=== PATIENT | female | born 1940 | race Caucasian/White ===

== ENCOUNTER 2018-11-24 16:26 | Emergency (ER) | payer MEDICARE ==
[~2018-11-24] VITALS: Ht 160 cm; Wt 101.6 kg
[2018-11-24] MEDS ORDERED: NS IV 500 ML 500 ML IV ONE (17:20)
[2018-11-24] MEDS ORDERED: NS IV 1000 ML 1,000 ML IV SCH ×3 (17:20→20:15)
--- NOTE | 2018-11-24 17:20 | ED Respiratory ---
General Stated Complaint: ASTHMA, SOB, YELLOW CONGESTION Source: patient, family (sister) Exam Limitations: no limitations (LAURE BOWIE) Source: patient (UMANG PRESTON DO) History of Present Illness Date Seen by Provider: Nov 24, 2018 Time Seen by Provider: 17:08 Initial Comments Patient presents the ER by private conveyance with her sister and chief complaint that she lives at assisted living home and is having shortness of breath cough productive yellow phlegm and worsening shortness of breath over the past 2 days. She started wearing her oxygen all day because her oxygen sats yesterday were 89% on room air. She usually does wear CPAP at 13 cm water pressure and 2 L of oxygen to sleep. She uses Xopenex because albuterol causes her a 2 fibrillation to go into rapid ventricular response. She is on Cardizem for her A. fib and Xarelto. Her last dose of Xopenex was at 1300, 4 hours ago. She's not had any worsening swelling in her feet. She has no history of CAD or CHF. The patient usually takes 5 mg daily for her asthma but for the past 2 days she' s bump that up to 40 mg a day. Her PCP was unavailable today and so she went to the urgent care and they told her to come the ER. (LAURE BOWIE) Allergies and Home Medications Allergies Coded Allergies: aspirin (Verified Allergy, Unknown, 11/24/18) albuterol (Verified Adverse Reaction, Unknown, afib rvr, 11/24/18) Uncoded Allergies: PLASTIC TAPE (Adverse Reaction, Unknown, 11/24/18) Patient Home Medication List Home Medication List Reviewed: Yes (LAURE BOWIE) Review of Systems Review of Systems Constitutional: No chills, No fever EENTM: No hearing loss, No ear pain Respiratory: cough, phlegm, short of breath, wheezing Cardiovascular: No chest pain; edema (chronic); No Hx of Intervention, No palpitations Gastrointestinal: No abdominal pain, No constipation, No diarrhea, No nausea, No vomiting Genitourinary: No discharge, No dysuria Musculoskeletal: No back pain, No joint pain (LAURE BOWIE) Past Mburaqh-Hrjisf-Brnqns Hx Patient Social History Alcohol Use: Denies Use Recreational Drug Use: No Smoking Status: Never a Smoker Recent Foreign Travel: No Contact w/Someone Who Travel: No (LAURE BOWIE) Physical Exam Vital Signs - First Documented 11/24/18 11/24/18 16:35 16:40 Temp 99.0 Pulse 111 Resp 33 B/P (MAP) 179/84 (115) Pulse Ox 94 O2 Delivery Nasal Cannula O2 Flow Rate 4.00 FiO2 94 (UMANG PRESTON DO) Capillary Refill : (LAURE BOWIE) Height: '" Weight: lbs. oz. kg; BMI Method: General Appearance: WD/WN, mild distress Eyes: Bilateral Eye Normal Inspection, Bilateral Eye PERRL, Bilateral Eye EOMI HEENT: PERRL/EOMI, normal ENT inspection, TMs normal, pharynx normal Neck: non-tender, full range of motion, supple, normal inspection Respiratory: chest non-tender, respiratory distress (mild), decreased breath sounds, accessory muscle use (mild inc), wheezing, expiration Cardiovascular: normal peripheral pulses, regular rate, rhythm, no edema Gastrointestinal: normal bowel sounds, non tender, soft Neurologic/Psychiatric: alert, normal mood/affect, oriented x 3 Skin: normal color, warm/dry (LAURE BOWIE) Focused Exam Lactate Level 11/24/18 17:20: Lactic Acid Level 3.52*H 11/24/18 19:15: Lactic Acid Level 2.19*H (UMANG PRESTON DO) Lactic Acid Level Laboratory Tests Test 11/24/18 17:20 11/24/18 19:15 Lactic Acid Level 3.52 MMOL/L (0.50-2.00) *H 2.19 MMOL/L (0.50-2.00) *H (UMANG PRESTON DO) Progress/Results/Core Measures Suspected Sepsis SIRS Temperature: Pulse: Respiratory Rate: Laboratory Tests 11/24/18 17:20: White Blood Count 11.3H Blood Pressure / Mean: 11/24/18 17:20: Lactic Acid Level 3.52*H 11/24/18 19:15: Lactic Acid Level 2.19*H Laboratory Tests 11/24/18 17:20: Creatinine 1.05, INR Comment 1.5H, Platelet Count 265, Total Bilirubin 0.3 (LAURE BOWIE) Results/Orders Lab Results Laboratory Tests Test 11/24/18 17:20 11/24/18 17:35 11/24/18 19:15 Range/Units White Blood Count 11.3 H 4.3-11.0 10^3/uL Red Blood Count 3.36 L 4.35-5.85 10^6/uL Hemoglobin 10.2 L 11.5-16.0 G/DL Hematocrit 34 L 35-52 % Mean Corpuscular Volume 100 H 80-99 FL Mean Corpuscular Hemoglobin 30 25-34 PG Mean Corpuscular Hemoglobin Concent 30 L 32-36 G/DL Red Cell Distribution Width 17.1 H 10.0-14.5 % Platelet Count 265 130-400 10^3/uL Mean Platelet Volume 9.0 7.4-10.4 FL Neutrophils (%) (Auto) 90 H 42-75 % Lymphocytes (%) (Auto) 3 L 12-44 % Monocytes (%) (Auto) 5 0-12 % Eosinophils (%) (Auto) 0 0-10 % Basophils (%) (Auto) 0 0-10 % Neutrophils # (Auto) 10.1 H 1.8-7.8 X 10^3 Lymphocytes # (Auto) 0.3 L 1.0-4.0 X 10^3 Monocytes # (Auto) 0.6 0.0-1.0 X 10^3 Eosinophils # (Auto) 0.0 0.0-0.3 10^3/uL Basophils # (Auto) 0.0 0.0-0.1 10^3/uL Neutrophils % (Manual) 79 % Lymphocytes % (Manual) 5 % Monocytes % (Manual) 4 % Eosinophils % (Manual) 1 % Basophils % (Manual) 0 % Band Neutrophils 11 % Nucleated Red Blood Cells 1 Anisocytosis SLIGHT Prothrombin Time 18.3 H 12.2-14.7 SEC INR Comment 1.5 H 0.8-1.4 Activated Partial Thromboplast Time 40 H 24-35 SEC Sodium Level 143 135-145 MMOL/L Potassium Level 4.3 3.6-5.0 MMOL/L Chloride Level 103 98-107 MMOL/L Carbon Dioxide Level 21 21-32 MMOL/L Anion Gap 19 H 5-14 MMOL/L Blood Urea Nitrogen 26 H 7-18 MG/DL Creatinine 1.05 0.60-1.30 MG/DL Estimat Glomerular Filtration Rate 51 BUN/Creatinine Ratio 25 Glucose Level 216 H 70-105 MG/DL Lactic Acid Level 3.52 *H 2.19 *H 0.50-2.00 MMOL/L Calcium Level 9.3 8.5-10.1 MG/DL Corrected Calcium 9.5 8.5-10.1 MG/DL Total Bilirubin 0.3 0.1-1.0 MG/DL Aspartate Amino Transf (AST/SGOT) 18 5-34 U/L Alanine Aminotransferase (ALT/SGPT) 18 0-55 U/L Alkaline Phosphatase 86 40-136 U/L Total Protein 7.1 6.4-8.2 GM/DL Albumin 3.8 3.2-4.5 GM/DL Blood Gas Puncture Site RT RADIAL Blood Gas Patient Temperature 99 Arterial Blood pH 7.40 7.37-7.43 Arterial Blood Partial Pressure CO2 48 H 35-45 MMHG Arterial Blood Partial Pressure O2 104 H 79-93 MMHG Arterial Blood HCO3 30 H 23-27 MMOL/L Arterial Blood Total CO2 31.2 H 21.0-31.0 MMOL/L Arterial Blood Oxygen Saturation 98 94-100 % Arterial Blood Base Excess 4.0 H -2.5-2.5 MMOL/L Claudy Test OK Blood Gas Ventilator Setting NO Blood Gas Inspired Oxygen 3L (UMANG PRESTON DO) Micro Results Microbiology 11/24/18 Influenza Types A,B Antigen (SUSANA) - Final, Complete (UMANG PRESTON DO) Medications Given in ED Current Medications Medications Dose Ordered Sig/Arsh Route Start Time Stop Time Status Last Admin Dose Admin Cefepime HCl 1000 mg/Sterile Water 10 ml @ 200 mls/hr ONCE ONCE IV 11/24/18 17:30 11/24/18 17:32 DC 11/24/18 17:49 200 MLS/HR Ipratropium [place] 0.5 mg ONCE ONCE IH 11/24/18 17:30 11/24/18 17:31 DC 11/24/18 17:49 0.5 MG Ipratropium [place] 0.5 mg ONCE ONCE IH 11/24/18 19:00 11/24/18 19:01 DC 11/24/18 18:55 0.5 MG Levalbuterol HCl 1.25 mg ONCE ONCE INH 11/24/18 17:30 11/24/18 17:31 DC 11/24/18 17:49 1.25 MG Levalbuterol HCl 7.5 mg ONCE ONCE INH 11/24/18 19:00 11/24/18 19:01 DC 11/24/18 19:38 7.5 MG Sodium Chloride 500 ml @ 0 mls/hr Q0M ONCE IV 11/24/18 17:20 11/24/18 17:23 DC 11/24/18 17:50 1,000 MLS/HR (UMANG PRESTON DO) Vital Signs/I&O 11/24/18 11/24/18 16:35 16:40 Temp 99.0 Pulse 111 Resp 33 B/P (MAP) 179/84 (115) Pulse Ox 94 94 O2 Delivery Nasal Cannula Nasal Cannula O2 Flow Rate 4.00 4.00 FiO2 94 (UMANG PRESTON DO) Vital Signs/I&O Capillary Refill : (LAURE BOWIE) Progress Note #1: Time: 18:41 Progress Note Septic workup reveals an elevated lactate. The ABG shows the oxygenation is okay when she is on 2 L by nasal cannula and she has compensated increased CO2. We'll give her a Atrovent and Xopenex and reexamine. The first Xopenex did not make any difference in her breathing. Really give her an hour-long +2 g of magnesium plus put her on BiPAP at 12 over 4 which is similar to her CPAP of 12 cm water pressure. We are going to give her 125 mg of Solu-Medrol and put her in the hospital. She has requested to go to where her son is an anesthesiologist. Progress Note #2: Time: 20:00 Progress Note After the magnesium and most of her hour-long Atrovent and Xopenex nebulizer his in plus putting her on the BiPAP she is much more relaxed and no longer having the increased work of breathing. Her repeat lactate is 2.19 which is an improvement. We are going to put her on maintenance IV fluids and continue to reassess. We have called and requested a bed. (LAURE BOWIE) Progress Note #1: Progress Note Care assumed from Dr. Bowie. Patient breathing comfortably on bipap, reseting with an O2 saturation of 100%. Patient accepted for transfer by Dr. Anderson at [facility] in . Will repeat breathing tx prior to transport and send on BIPAP. Progress Note #2: Time: 21:03 (UMANG PRESTON DO) Diagnostic Imaging Diagonstic Imaging: Xray Plain Films/CT/US/NM/MRI: chest (1v) Comments NAME: YAQUELIN WALTER I [facility] REC#: [id number] PT STATUS: REG ER : 1940 PHYSICIAN: LAURE BOWIE MD ADMIT DATE: 11/24/18/ER FS Signed Date of Exam:11/24/18 CHEST 1 VIEW AP/PA ONLY Indication: Respiratory distress Portable chest 4:30 PM Heart size and pulmonary vascular normal. Lungs are clear. There are no effusions or pneumothoraces. Impression: Negative chest Dictated by: Dictated on workstation # [id number] Dict: 11/24/18 1735 Trans: 11/24/18 [id number] Interpreted by: EPI JOHNSON MD Electronically signed by: EPI JOHNSON MD 11/24/181734 Reviewed: Reviewed by Me (LAURE BOWIE) Departure Communication (Admissions) Time/Spoke to Admitting Phy: 21:04 (Dr. Anderson) Care accepted. Patient to by transferred on bipap to [facility] ICU. (UMANG PRESTON DO) Impression Primary Impression: Asthma exacerbation Qualified Codes: J45.901 - Unspecified asthma with (acute) exacerbation Additional Impression: Lactic acidosis Disposition: XFER SHT-TRM HOSP Condition: Stable Admissions Decision to Admit Reason: Admit from ER (General) Decision to Admit/Date: Nov 24, 2018 Time/Decision to Admit Time: 19:00 (UMANG PRESTON DO) Transfer Time Spoke to Accepting Phy: 20:15 Transfer Progress Notes 2000: Talk to regulatory services consultant. She is going to give report to the on-call doctor and have them call us back. Transfer Facility: [id number] Method of Transfer: EMS (LAURE BOWIE) Time Spoke to Accepting Phy: 21:06 Method of Transfer: EMS (UMANG PRESTON DO) Departure-Patient Inst. Decision time for Depature: 19:00 (UMANG PRESTON DO) Referrals: BARBARA MARTINEZ MD (PCP) Primary Care Physician Copy Copies To 1: BARBARA MARTINEZ MD, TITUS J Nov 24, 2018 17:20 UMANG PRESTON DO Nov 24, 2018 21:06
[2018-11-24] MEDS ORDERED: RT-IPRATROPIUM (ATROVENT) 0.5MG/2.5ML AMP IH ONE ×2 (17:30→19:00)
[2018-11-24] MEDS ORDERED: RT-LEVALBUTEROL (XOPENEX) 1.25 MG/3 ML NEB NON-FORMULARY INH ONE ×2 (17:30→19:00)
[2018-11-24] MEDS ORDERED: CEFEPIME INJECTION 1,000 MG in WATER (STERILE) FOR INJECTION 10 ML IV ONE (17:30)
--- NOTE | 2018-11-24 17:38 | Diagnostic Imaging Report ---
Indication: Respiratory distress Portable chest 4:30 PM Heart size and pulmonary vascular normal. Lungs are clear. There are no effusions or pneumothoraces. Impression: Negative chest Dictated by: Dictated on workstation # [id number]
[2018-11-24 17:48] LABS: HEMATOCRIT 34 % (35-52); HEMOGLOBIN 10.2 G/DL (11.5-16.0); MEAN CORPUSCULAR HEMOGLOBIN 30 PG (25-34); MEAN CORPUSCULAR HGB CONC 30 G/DL (32-36); MEAN CORPUSCULAR VOLUME 100 FL (80-99); PLATELET COUNT 265 10^3/uL (130-400); RED CELL DISTRIBUTION WIDTH 17.1 % (10.0-14.5); WHITE BLOOD COUNT 11.3 10^3/uL (4.3-11.0)
[2018-11-24 17:49] LABS: BASOPHILS % (AUTO) 0 % (0-10); EOSINOPHILS % (AUTO) 0 % (0-10); LYMPHOCYTES # (AUTO) 0.3 X 10^3 (1.0-4.0); LYMPHOCYTES % (AUTO) 3 % (12-44); MONOCYTES # (AUTO) 0.6 X 10^3 (0.0-1.0); MONOCYTES % (AUTO) 5 % (0-12); NEUTROPHILS # (AUTO) 10.1 X 10^3 (1.8-7.8); NEUTROPHILS % (AUTO) 90 % (42-75)
[2018-11-24 18:05] LABS: ABG OXYGEN SATURATION 98 % (94-100); ABG PCO2 48 MMHG (35-45); ABG PO2 104 MMHG (79-93); ABG TCO2 31.2 MMOL/L (21.0-31.0)
[2018-11-24 18:06] LABS: INR 1.5 (0.8-1.4); PROTHROMBIN TIME PATIENT 18.3 SEC (12.2-14.7)
[2018-11-24 18:06] LABS: ALLENS TEST OK; INSPIRED O2 3L; PATIENT TEMP 99; VENTILATOR NO
[2018-11-24 18:13] LABS: POTASSIUM 4.3 MMOL/L (3.6-5.0)
[2018-11-24 18:14] LABS: ALBUMIN 3.8 GM/DL (3.2-4.5); BILIRUBIN,TOTAL 0.3 MG/DL (0.1-1.0); CALCIUM 9.3 MG/DL (8.5-10.1); CREATININE SERUM 1.05 MG/DL (0.60-1.30); TOTAL PROTEIN 7.1 GM/DL (6.4-8.2)
[2018-11-24 18:19] LABS: BAND NEUTROPHILS 11 %; BASOPHILS % (MANUAL) 0 %; EOSINOPHILS % (MANUAL) 1 %; LYMPHOCYTES % (MANUAL) 5 %; MONOCYTES % (MANUAL) 4 %; NEUTROPHILS % (MANUAL) 79 %
[2018-11-24 18:20] LABS: ANISOCYTOSIS SLIGHT; NUCLEATED RED BLOOD CELLS 1
[2018-11-24] MEDS ORDERED: methylPREDNISolone 125 MG (Solu-MEDROL) VIAL IV STA (18:49)
[2018-11-24] MEDS ORDERED: MAGNESIUM 1 GM/100 ML IVPB 100 ML IV SCH (19:00)
[2018-11-24] MEDS ORDERED: DILTIAZEM 180 MG (CARDIZEM CD) CAP PO ONE (19:00)
--- NOTE | 2018-11-24 19:53 | NUR ---
Doctor was notified that the lactic acid 2.19
--- NOTE | 2018-11-24 20:16 | NUR ---
The cardizem was not available so family will bring her cardizem in and she will receive the dose as ordered by the doctor. The doctor was made aware she would be using her home medication.
[2018-11-24 22:03] LABS: BACTERIA,URINE FEW /HPF; BILIRUBIN,URINE NEGATIVE (NEGATIVE); CLARITY,URINE CLEAR; COLOR,URINE YELLOW; GLUCOSE, URINE (UA) TRACE (NEGATIVE); KETONES,URINE NEGATIVE (NEGATIVE); LEUKOCYTE ESTERASE ,URINE NEGATIVE (NEGATIVE); NITRITE,URINE POSITIVE (NEGATIVE); PH,URINE 5.5 (5-9); PROTEIN,URINE TRACE (NEGATIVE); UROBILINOGEN,URINE 0.2 MG/DL (NORMAL)
[2018-11-24] MEDS ORDERED: DILTIAZEM INJECTION 125 MG in NS (IVPB) 100 ML IV SCH (22:15)
--- NOTE | 2018-11-24 23:18 | NUR ---
PT. PULLED HER IV OUT THAT WAS IN HER LEFT AC. THE IV FLUIDS WERE PLACED IN THE RIGHT AC IV.
--- NOTE | 2018-11-24 23:55 | NUR ---
BECAUSE [facility] IS UNABLE TO SUPPLY THE PATIENT WITH THE BIPAP FOR TRANSPORT THIS RN HAD TO CALL [facility] AND WAS INFORMED THEY WOULD COME AND GET HER BUT IT WOULD BE 2-3 HOURS BEFORE THEY CAN GET HERE. PATIENT INFORMED OF THE DELAY IN TRANSFER TO .
[2018-11-25 02:19] VITALS: BP 182/98
== END 2018-11-24 23:39 | disposition short-term general hospital (02) ==
LOC: EDUNIT# 16:26 → ER FS 16:28
DX: J45.901 Unspecified asthma with (acute) exacerbation (principal); E87.2 Acidosis; I48.91 Unspecified atrial fibrillation; Z79.01 Long term (current) use of anticoagulants; Z99.81 Dependence on supplemental oxygen; Z88.6 Allergy status to analgesic agent; Z88.8 Allergy status to other drugs, medicaments and biological substances; Z91.048 Other nonmedicinal substance allergy status
CPT/HCPCS: 36415; 71045; 80053; 81000; 82805; 83605; 85007; 85027; 85610; 85730; 87040; 87088; 87804; 96361; 96365; 96367; 96375; 99291

== ENCOUNTER → 2018-12-13 | Outpatient (CLI) | payer MEDICARE ==
[2018-12-13 15:28] LABS: HEMATOCRIT 34 % (35-52); HEMOGLOBIN 9.6 G/DL (11.5-16.0); MEAN CORPUSCULAR HEMOGLOBIN 29 PG (25-34); MEAN CORPUSCULAR HGB CONC 29 G/DL (32-36); MEAN CORPUSCULAR VOLUME 103 FL (80-99); MEAN PLATELET VOLUME 8.5 FL (7.4-10.4); PLATELET COUNT 288 10^3/uL (130-400); RED CELL DISTRIBUTION WIDTH 16.6 % (10.0-14.5); WHITE BLOOD COUNT 14.2 10^3/uL (4.3-11.0)
[2018-12-13 15:29] LABS: BASOPHILS % (AUTO) 0 % (0-10); EOSINOPHILS % (AUTO) 0 % (0-10); LYMPHOCYTES % (AUTO) 4 % (12-44); MONOCYTES % (AUTO) 3 % (0-12); NEUTROPHILS % (AUTO) 93 % (42-75)
[2018-12-13 15:30] LABS: LYMPHOCYTES # (AUTO) 0.5 X 10^3 (1.0-4.0); MONOCYTES # (AUTO) 0.4 X 10^3 (0.0-1.0); NEUTROPHILS # (AUTO) 13.9 X 10^3 (1.8-7.8)
[2018-12-13 15:31] LABS: BAND NEUTROPHILS 15 %; EOSINOPHILS % (MANUAL) 1 %; LYMPHOCYTES % (MANUAL) 2 %; MONOCYTES % (MANUAL) 3 %; NEUTROPHILS % (MANUAL) 79 %
[2018-12-13 15:32] LABS: CREATININE SERUM 1.16 MG/DL (0.60-1.30); HYPOCHROMASIA 1+
[2018-12-13 15:33] LABS: ALBUMIN 3.5 GM/DL (3.2-4.5); BILIRUBIN,TOTAL 0.3 MG/DL (0.1-1.0); CALCIUM 9.4 MG/DL (8.5-10.1); POTASSIUM 5.5 MMOL/L (3.6-5.0); TOTAL PROTEIN 6.4 GM/DL (6.4-8.2)
== END ==
LOC: LAB FS 14:07
PROVIDERS: ATTEND Pediatrics
DX: E87.5 Hyperkalemia (principal)
CPT/HCPCS: 36415; 80053; 85007; 85027

== ENCOUNTER → 2018-12-27 | Outpatient (CLI) | payer MEDICARE ==
[2018-12-27 15:05] LABS: CALCIUM 9.2 MG/DL (8.5-10.1); CREATININE SERUM 1.52 MG/DL (0.60-1.30)
[2018-12-27 16:25] LABS: HEMATOCRIT 31 % (35-52); MEAN CORPUSCULAR HEMOGLOBIN 29 PG (25-34); WHITE BLOOD COUNT 10.8 10^3/uL (4.3-11.0)
[2018-12-27 16:26] LABS: BASOPHILS % (AUTO) 0 % (0-10); EOSINOPHILS # (AUTO) 0.1 10^3/uL (0.0-0.3); EOSINOPHILS % (AUTO) 1 % (0-10); LYMPHOCYTES % (AUTO) 9 % (12-44); MEAN CORPUSCULAR HGB CONC 29 G/DL (32-36); MEAN CORPUSCULAR VOLUME 101 FL (80-99); MEAN PLATELET VOLUME 8.7 FL (7.4-10.4); MONOCYTES # (AUTO) 0.7 X 10^3 (0.0-1.0); MONOCYTES % (AUTO) 7 % (0-12); NEUTROPHILS # (AUTO) 8.5 X 10^3 (1.8-7.8); NEUTROPHILS % (AUTO) 83 % (42-75); PLATELET COUNT 257 10^3/uL (130-400); RED CELL DISTRIBUTION WIDTH 16.7 % (10.0-14.5)
[2018-12-27 16:27] LABS: BAND NEUTROPHILS 11 %; EOSINOPHILS % (MANUAL) 1 %; LYMPHOCYTES % (MANUAL) 9 %; MONOCYTES % (MANUAL) 7 %; NEUTROPHILS % (MANUAL) 68 %
[2018-12-27 16:28] LABS: HYPOCHROMASIA SLIGHT; MICROCYTOSIS SLIGHT; MYELOCYTES % 4 %; POIKILOCYTOSIS SLIGHT
[2018-12-27 16:29] LABS: ELLIPT/OVALOCYTES SLIGHT
== END ==
LOC: RAD FS 14:07
PROVIDERS: ATTEND Pediatrics
DX: E87.5 Hyperkalemia (principal); J45.40 Moderate persistent asthma, uncomplicated
CPT/HCPCS: 36415; 80048; 85007; 85027

== ENCOUNTER → 2019-02-14 | Outpatient (CLI) | payer MEDICARE ==
[2019-02-14 15:26] LABS: BASOPHILS % (AUTO) 1 % (0-10); EOSINOPHILS % (AUTO) 1 % (0-10); HEMATOCRIT 35 % (35-52); HEMOGLOBIN 10.1 G/DL (11.5-16.0); LYMPHOCYTES # (AUTO) 0.9 X 10^3 (1.0-4.0); LYMPHOCYTES % (AUTO) 8 % (12-44); MEAN CORPUSCULAR HEMOGLOBIN 27 PG (25-34); MEAN CORPUSCULAR HGB CONC 29 G/DL (32-36); MEAN CORPUSCULAR VOLUME 94 FL (80-99); MONOCYTES # (AUTO) 0.8 X 10^3 (0.0-1.0); MONOCYTES % (AUTO) 7 % (0-12); NEUTROPHILS % (AUTO) 82 % (42-75); PLATELET COUNT 346 10^3/uL (130-400); RED CELL DISTRIBUTION WIDTH 15.9 % (10.0-14.5)
[2019-02-14 15:27] LABS: BASOPHILS # (AUTO) 0.1 10^3/uL (0.0-0.1); EOSINOPHILS # (AUTO) 0.1 10^3/uL (0.0-0.3)
[2019-02-14 16:01] LABS: BILIRUBIN,TOTAL 0.2 MG/DL (0.1-1.0); CALCIUM 9.5 MG/DL (8.5-10.1); CREATININE SERUM 1.18 MG/DL (0.60-1.30); TOTAL PROTEIN 6.8 GM/DL (6.4-8.2)
== END ==
LOC: LAB FS 14:24
PROVIDERS: ATTEND Pediatrics
DX: N17.9 Acute kidney failure, unspecified (principal)
CPT/HCPCS: 36415; 80053; 85025

== ENCOUNTER 2019-10-24 21:33 | Emergency (ER) | payer MEDICARE ==
[~2019-10-24] VITALS: Ht 157 cm; Wt 85.0 kg
[2019-10-24 22:10] LABS: HEMATOCRIT 32 % (35-52); HEMOGLOBIN 9.5 G/DL (11.5-16.0); LYMPHOCYTES % (AUTO) 8 % (12-44); MEAN CORPUSCULAR HEMOGLOBIN 28 PG (25-34); MEAN CORPUSCULAR HGB CONC 29 G/DL (32-36); MEAN CORPUSCULAR VOLUME 96 FL (80-99); MEAN PLATELET VOLUME 9.4 FL (7.4-10.4); PLATELET COUNT 329 10^3/uL (130-400); RED CELL DISTRIBUTION WIDTH 17.1 % (10.0-14.5); WHITE BLOOD COUNT 16.1 10^3/uL (4.3-11.0)
[2019-10-24 22:11] LABS: BASOPHILS % (AUTO) 0 % (0-10); EOSINOPHILS % (AUTO) 1 % (0-10); MONOCYTES % (AUTO) 10 % (0-12); NEUTROPHILS % (AUTO) 81 % (42-75)
[2019-10-24 22:12] LABS: EOSINOPHILS # (AUTO) 0.1 10^3/uL (0.0-0.3); LYMPHOCYTES # (AUTO) 1.3 X 10^3 (1.0-4.0); MONOCYTES # (AUTO) 1.6 X 10^3 (0.0-1.0)
--- NOTE | 2019-10-24 22:25 | ED Cough/URI ---
General Chief Complaint: Respiratory Problems Stated Complaint: SOB Nursing Triage Note: PT BROUGHT IN BY EMS FROM DC WITH COMPLAINTS OF SOB WELL GENERALIZED PAIN DUE TO HER SHINGLES. Sepsis Screen: Possible Sepsis Risk Source: patient, EMS History of Present Illness Date Seen by Provider: Oct 24, 2019 Time Seen by Provider: 21:51 Initial Comments 78-year-old female presenting from [facility] by EMS. She has been having increased shortness of breath and cough. She has generalized pain worse in her back from shingles. She felt like things were worse today. EMS brought her to be evaluated. She felt like she was having subjective fever and chills. She was bringing up more congestion and phlegm with her cough. Allergies and Home Medications Allergies Coded Allergies: aspirin (Verified Allergy, Unknown, 11/24/18) albuterol (Verified Adverse Reaction, Unknown, afib rvr, 11/24/18) Uncoded Allergies: PLASTIC TAPE (Adverse Reaction, Unknown, 11/24/18) Home Medications Levofloxacin 500 Mg Tablet, 500 MG PO DAILY Prescribed by: BIGG RUDOLPH on 10/25/19 0106 Patient Home Medication List Home Medication List Reviewed: Yes Review of Systems Review of Systems Constitutional: chills, fever, malaise EENTM: nose congestion Respiratory: cough, phlegm, short of breath; No stridor; wheezing Cardiovascular: chest pain (tightness) Gastrointestinal: no symptoms reported; No nausea, No vomiting Genitourinary: frequency Musculoskeletal: other (generalized muscle pain) Skin: no symptoms reported Psychiatric/Neurological: Headache, Weakness Past Kfwrudd-Kkzebi-Gcdhng Hx Past Med/Social Hx: Reviewed Nursing Past Med/Soc Hx Patient Social History Alcohol Use: Denies Use Recreational Drug Use: No 2nd Hand Smoke Exposure: No Recent Foreign Travel: No Contact w/Someone Who Travel: No Recent Infectious Disease Expo: No Recent Hopitalizations: No Physical Abuse: No Sexual Abuse: No Seasonal Allergies Seasonal Allergies: No Past Medical History Surgeries: Yes Lumpectomy, Tonsillectomy Respiratory: Yes Asthma, COPD Cardiac: Yes (CHF) Atrial Fibrillation Neurological: No Genitourinary: No Gastrointestinal: No Musculoskeletal: Yes Arthritis Endocrine: No HEENT: No Cancer: No Psychosocial: No Integumentary: No Blood Disorders: No Physical Exam Vital Signs - First Documented 10/24/19 10/25/19 21:33 01:11 Temp 37.4 Pulse 106 Resp 18 B/P (MAP) 111/48 Pulse Ox 94 O2 Delivery Nasal Cannula O2 Flow Rate 3.00 Capillary Refill : Less Than 3 Seconds Height: 5'3.00" Weight: 224lbs. oz. 101.629239lg; 34.00 BMI Method:Stated General Appearance: WD/WN, mild distress HEENT: PERRL/EOMI, other (dry mucous membranes) Neck: full range of motion, supple, normal inspection Respiratory: chest non-tender, lungs clear, normal breath sounds, no respiratory distress, no accessory muscle use Cardiovascular: normal peripheral pulses, regular rate, rhythm, no edema, no gallop Gastrointestinal: normal bowel sounds, soft, no pulsatile mass Extremities: normal range of motion, non-tender, normal inspection Neurologic/Psychiatric: ultrasound sonographer II-XII nml as tested, alert, oriented x 3 Skin: normal color, warm/dry Focused Exam Lactate Level 10/24/19 21:40: Lactic Acid Level 1.22 Lactic Acid Level Laboratory Tests Test 10/24/19 21:40 Lactic Acid Level 1.22 MMOL/L (0.50-2.00) Progress/Results/Core Measures Suspected Sepsis Recent Fever Within 48 Hours: Yes Infection Criteria Present: Suspected New Infection New/Unexplained Altered Menta: No Sepsis Screen: Possible Sepsis Risk SIRS Temperature: Pulse: 106 Respiratory Rate: 18 Laboratory Tests 10/24/19 21:40: White Blood Count 16.1H Blood Pressure / Mean: 10/24/19 21:40: Lactic Acid Level 1.22 Laboratory Tests 10/24/19 21:40: Creatinine 1.34H, Platelet Count 329, Total Bilirubin 0.2 Results/Orders Lab Results Laboratory Tests Test 10/24/19 21:40 10/24/19 23:09 Range/Units White Blood Count 16.1 H 4.3-11.0 10^3/uL Red Blood Count 3.37 L 4.35-5.85 10^6/uL Hemoglobin 9.5 L 11.5-16.0 G/DL Hematocrit 32 L 35-52 % Mean Corpuscular Volume 96 80-99 FL Mean Corpuscular Hemoglobin 28 25-34 PG Mean Corpuscular Hemoglobin Concent 29 L 32-36 G/DL Red Cell Distribution Width 17.1 H 10.0-14.5 % Platelet Count 329 130-400 10^3/uL Mean Platelet Volume 9.4 7.4-10.4 FL Neutrophils (%) (Auto) 81 H 42-75 % Lymphocytes (%) (Auto) 8 L 12-44 % Monocytes (%) (Auto) 10 0-12 % Eosinophils (%) (Auto) 1 0-10 % Basophils (%) (Auto) 0 0-10 % Neutrophils # (Auto) 13.0 H 1.8-7.8 X 10^3 Lymphocytes # (Auto) 1.3 1.0-4.0 X 10^3 Monocytes # (Auto) 1.6 H 0.0-1.0 X 10^3 Eosinophils # (Auto) 0.1 0.0-0.3 10^3/uL Basophils # (Auto) 0.0 0.0-0.1 10^3/uL Neutrophils % (Manual) 68 % Lymphocytes % (Manual) 12 % Monocytes % (Manual) 9 % Eosinophils % (Manual) 0 % Basophils % (Manual) 0 % Band Neutrophils 11 % Hypochromasia 1+ Anisocytosis 2+ Microcytosis 1+ Macrocytosis 1+ Sodium Level 141 135-145 MMOL/L Potassium Level 5.0 3.6-5.0 MMOL/L Chloride Level 104 98-107 MMOL/L Carbon Dioxide Level 27 21-32 MMOL/L Anion Gap 10 5-14 MMOL/L Blood Urea Nitrogen 29 H 7-18 MG/DL Creatinine 1.34 H 0.60-1.30 MG/DL Estimat Glomerular Filtration Rate 38 BUN/Creatinine Ratio 22 Glucose Level 82 70-105 MG/DL Lactic Acid Level 1.22 0.50-2.00 MMOL/L Calcium Level 8.9 8.5-10.1 MG/DL Corrected Calcium 9.6 8.5-10.1 MG/DL Total Bilirubin 0.2 0.1-1.0 MG/DL Aspartate Amino Transf (AST/SGOT) 20 5-34 U/L Alanine Aminotransferase (ALT/SGPT) 12 0-55 U/L Alkaline Phosphatase 77 40-136 U/L C-Reactive Protein 5.88 H <0.50 MG/DL Total Protein 6.3 L 6.4-8.2 GM/DL Albumin 3.1 L 3.2-4.5 GM/DL Urine Color YELLOW Urine Clarity CLOUDY H Urine pH 6.5 5-9 Urine Specific [place] 1.020 1.016-1.022 Urine Protein NEGATIVE NEGATIVE Urine Glucose (UA) NEGATIVE NEGATIVE Urine Ketones NEGATIVE NEGATIVE Urine Nitrite POSITIVE H NEGATIVE Urine Bilirubin NEGATIVE NEGATIVE Urine Urobilinogen 0.2 < = 1.0 MG/DL Urine Leukocyte Esterase TRACE H NEGATIVE Urine RBC (Auto) NEGATIVE NEGATIVE Urine RBC RARE /HPF Urine WBC 10-25 H /HPF Urine Squamous Epithelial Cells 2-5 /HPF Urine Crystals NONE /LPF Urine Bacteria LARGE H /HPF Urine Casts NONE /LPF Urine Mucus NEGATIVE /LPF Urine Culture Indicated YES My Orders Orders - BIGG RUDOLPH MD Cbc With Automated Diff (10/24/19 21:58) Comprehensive Metabolic Panel (10/24/19 21:58) Blood Culture (10/24/19 21:58) Lactic Acid Analyzer (10/24/19 21:58) Ua Culture If Indicated (10/24/19 21:58) Chest 1 View Ap/Pa Only (10/24/19 21:58) Ed Iv/Invasive Line Start (10/24/19 21:58) Crp Fs (10/24/19 21:58) Manual Differential (10/24/19 21:40) Urine Culture (10/24/19 23:09) Levofloxacin 500 Mg/100 Ml Iv (Levaquin (10/24/19 23:37) Vital Signs/I&O 10/24/19 10/25/19 21:33 01:11 Temp 37.4 Pulse 106 97 Resp 18 16 B/P (MAP) 111/48 Pulse Ox 94 96 O2 Delivery Nasal Cannula Nasal Cannula O2 Flow Rate 3.00 2.00 Capillary Refill : Less Than 3 Seconds Progress Note #1: Progress Note Check labs and chest x-ray with electrocardiogram. Progress Note #2: Progress Note Labs show an elevated white blood cell count. Her chemistry demonstrates baseline labs with elevated BUN/creatinine. Her chemistry is not showing any significant change. Her chest x-ray does show a right lower lobe infiltrate. Her lactic acid is normal and not elevated. Her urinalysis does show signs of infection. Will cover her with Levaquin since she is in a care home setting. Patient encouraged to push fluids. She did not wish to be admitted to the hospital since she already has oxygen she would like to treat this back at [facility]. Diagnostic Imaging Diagonstic Imaging: Xray Plain Films/CT/US/NM/MRI: chest Comments Right lower lobe infiltrate Departure Impression Primary Impression: Right lower lobe pneumonia Qualified Codes: J18.1 - Lobar pneumonia, unspecified organism Disposition: HOME, SELF-CARE Condition: Stable Departure-Patient Inst. Decision time for Depature: 00:58 Referrals: BARBARA MARTINEZ MD (PCP/Family) Primary Care Physician Patient Instructions: Pneumonia, Adult (DC) Add. Discharge Instructions: Take the full course of antibiotics. Continue on your regular medicines and oxygen. Make sure to use your breathing treatments to help ease your breathing. All discharge instructions reviewed with patient and/or family. Voiced understanding. Scripts Levofloxacin (Levofloxacin) 500 Mg Tablet 500 MG PO DAILY for pneumonia for 10 Days, #9 TAB 0 Refills Prov: BIGG RUDOLPH MD 10/25/19 BIGG RUDOLPH MD Oct 24, 2019 22:25
[2019-10-24 22:30] LABS: CALCIUM 8.9 MG/DL (8.5-10.1); CREATININE SERUM 1.34 MG/DL (0.60-1.30)
[2019-10-24 22:31] LABS: ALBUMIN 3.1 GM/DL (3.2-4.5); BILIRUBIN,TOTAL 0.2 MG/DL (0.1-1.0); TOTAL PROTEIN 6.3 GM/DL (6.4-8.2)
[2019-10-24 22:39] LABS: BAND NEUTROPHILS 11 %; BASOPHILS % (MANUAL) 0 %; EOSINOPHILS % (MANUAL) 0 %; LYMPHOCYTES % (MANUAL) 12 %; MONOCYTES % (MANUAL) 9 %; NEUTROPHILS % (MANUAL) 68 %
[2019-10-24 22:40] LABS: ANISOCYTOSIS 2+; HYPOCHROMASIA 1+; MICROCYTOSIS 1+
[2019-10-24 23:16] LABS: BILIRUBIN,URINE NEGATIVE (NEGATIVE); CLARITY,URINE CLOUDY; COLOR,URINE YELLOW; GLUCOSE, URINE (UA) NEGATIVE (NEGATIVE); KETONES,URINE NEGATIVE (NEGATIVE); LEUKOCYTE ESTERASE ,URINE TRACE (NEGATIVE); NITRITE,URINE POSITIVE (NEGATIVE); PH,URINE 6.5 (5-9); PROTEIN,URINE NEGATIVE (NEGATIVE)
[2019-10-24 23:19] LABS: BACTERIA,URINE LARGE /HPF; RBC,URINE RARE /HPF
[2019-10-24] MEDS ORDERED: LEVOFLOXACIN 500 MG/100 ML IV 100 ML IV STA (23:37)
[2019-10-25] MEDS ORDERED: LEVO500T80 PO ×2 (01:01→01:06)
[2019-10-25 01:11] VITALS: BP 111/48
--- NOTE | 2019-10-25 05:46 | Diagnostic Imaging Report ---
CLINICAL INDICATION: Patient fever and shortness of breath. EXAM: Portable chest x-ray upright view. COMPARISONS: Chest x-ray dated 11/24/2018. FINDINGS: There is interval development of airspace infiltrate involving the medial right lung base/middle lobe region. The remainder of lungs are clear. There is no pleural effusion or pneumothorax. Stable cardiomegaly. There is no significant pulmonary vascular congestion. There are degenerative spurs involving the thoracic spine. IMPRESSION: 1: Interval development of minimal size medial right lung base infiltrate/pneumonia. 2: Stable mild cardiomegaly with no significant pulmonary vascular congestion. Dictated by: Dictated on workstation # [id number]
== END 2019-10-25 01:30 | disposition home or self-care (01) ==
LOC: EDUNIT# 21:33 → ER FS 21:33
DX: J18.9 Pneumonia, unspecified organism (principal); Z88.6 Allergy status to analgesic agent; Z88.8 Allergy status to other drugs, medicaments and biological substances
CPT/HCPCS: 36415; 71045; 80053; 81000; 83605; 85007; 85027; 86141; 87040; 87077; 87088; 87186; 96374

== ENCOUNTER 2019-11-12 22:11 | Emergency (ER) | payer MEDICARE ==
[~2019-11-12] VITALS: Ht 157.5 cm; Wt 95.3 kg
[~2019-11-12 22:11] MED LIST: LEVO500T80 PO
--- NOTE | 2019-11-12 22:36 | ED Dyspnea ---
General Stated Complaint: TROUBLE BREATHING Source of Information: Patient History of Present Illness Date Seen by Provider: Nov 12, 2019 Time Seen by Provider: 22:31 Initial Comments 78-year-old female carries dx of asthma she apparently had a right lower lobe pneumonia diagnosed on 10-24 was prescribed Levaquin treated outpatient She was brought by EMS once again from [facility] this evening the chief complaint of short of breath Patient responds verbally but is a very bad historian claims to have just gotten ill today she was unaware of having fever she's been short of breath and coughing can't get her to answer whether she is bringing up any sputum she denies pain anywhere denies vomiting or diarrhea urinary symptoms paramedics report that she had an O2 sat in the low 80s on 2 L when they picked her up she is now on 6 L at 95% O2 sat respiratory rate reported in the 40s initial pulse 125 temp 39 1 she apparently is a full code Allergies and Home Medications Allergies Coded Allergies: aspirin (Verified Allergy, Unknown, 11/24/18) albuterol (Verified Adverse Reaction, Unknown, afib rvr, 11/24/18) Uncoded Allergies: PLASTIC TAPE (Adverse Reaction, Unknown, 11/24/18) Home Medications Levofloxacin 500 Mg Tablet, 500 MG PO DAILY Prescribed by: BIGG RUDOLPH on 10/25/19 0106 Patient Home Medication List Home Medication List Reviewed: Yes Review of Systems Review of Systems Constitutional: fever EENTM: no symptoms reported Respiratory: cough, short of breath Cardiovascular: no symptoms reported; No syncope Gastrointestinal: no symptoms reported Genitourinary: no symptoms reported Past Yigqcbs-Cxcdah-Nabclf Hx Patient Social History 2nd Hand Smoke Exposure: No Recent Foreign Travel: No Contact w/Someone Who Travel: No Recent Hopitalizations: No Seasonal Allergies Seasonal Allergies: No Past Medical History Surgeries: Yes Lumpectomy, Tonsillectomy Respiratory: Yes Asthma, COPD Cardiac: Yes (CHF) Atrial Fibrillation Neurological: No Genitourinary: No Gastrointestinal: No Musculoskeletal: Yes Arthritis Endocrine: No HEENT: No Cancer: No Psychosocial: No Integumentary: No Blood Disorders: No Physical Exam Vital Signs Vital Signs - First Documented 11/12/19 22:48 Temp 39.1 Pulse 125 Resp 34 Pulse Ox 95 O2 Delivery Nasal Cannula O2 Flow Rate 5.00 Capillary Refill : Height, Weight, BMI Height: 5'3.00" Weight: 224lbs. oz. 101.817761xm; 34.00 BMI Method:Stated General Appearance: Chronically ill, Mild Distress HEENT: PERRL/EOMI, Pharynx Normal Neck: Supple Respiratory: Decreased Breath Sounds, Other (poor air movement bilat) Cardiovascular: Regular Rate, Rhythm Extremity: Other (bertin size deep skin ulcer medial left ankle) Neurologic/Psychiatric: No Motor/Sensory Deficits, director utilization management II-XII Norm as Tested Focused Exam Lactate Level 11/12/19 22:30: Lactic Acid Level 1.25 Lactic Acid Level Laboratory Tests Test 11/12/19 22:30 Lactic Acid Level 1.25 MMOL/L (0.50-2.00) Progress/Results/Core Measures Results/Orders Lab Results Laboratory Tests Test 11/12/19 22:30 11/12/19 23:10 11/12/19 23:21 Range/Units White Blood Count 19.3 H 4.3-11.0 10^3/uL Red Blood Count 3.76 L 4.35-5.85 10^6/uL Hemoglobin 10.6 L 11.5-16.0 G/DL Hematocrit 37 35-52 % Mean Corpuscular Volume 98 80-99 FL Mean Corpuscular Hemoglobin 28 25-34 PG Mean Corpuscular Hemoglobin Concent 29 L 32-36 G/DL Red Cell Distribution Width 18.4 H 10.0-14.5 % Platelet Count 264 130-400 10^3/uL Mean Platelet Volume 9.2 7.4-10.4 FL Neutrophils (%) (Auto) 89 H 42-75 % Lymphocytes (%) (Auto) 3 L 12-44 % Monocytes (%) (Auto) 7 0-12 % Eosinophils (%) (Auto) 0 0-10 % Basophils (%) (Auto) 0 0-10 % Neutrophils # (Auto) 17.1 H 1.8-7.8 X 10^3 Lymphocytes # (Auto) 0.6 L 1.0-4.0 X 10^3 Monocytes # (Auto) 1.4 H 0.0-1.0 X 10^3 Eosinophils # (Auto) 0.0 0.0-0.3 10^3/uL Basophils # (Auto) 0.0 0.0-0.1 10^3/uL Neutrophils % (Manual) 88 % Lymphocytes % (Manual) 1 % Monocytes % (Manual) 10 % Band Neutrophils 1 % Toxic Granulation 3+ Polychromasia SLIGHT Sodium Level 145 135-145 MMOL/L Potassium Level 4.7 3.6-5.0 MMOL/L Chloride Level 103 98-107 MMOL/L Carbon Dioxide Level 30 21-32 MMOL/L Anion Gap 12 5-14 MMOL/L Blood Urea Nitrogen 29 H 7-18 MG/DL Creatinine 1.23 0.60-1.30 MG/DL Estimat Glomerular Filtration Rate 42 BUN/Creatinine Ratio 24 Glucose Level 97 70-105 MG/DL Lactic Acid Level 1.25 0.50-2.00 MMOL/L Calcium Level 9.3 8.5-10.1 MG/DL Corrected Calcium 9.7 8.5-10.1 MG/DL Total Bilirubin 0.3 0.1-1.0 MG/DL Aspartate Amino Transf (AST/SGOT) 23 5-34 U/L Alanine Aminotransferase (ALT/SGPT) 20 0-55 U/L Alkaline Phosphatase 75 40-136 U/L Troponin I < 0.30 <0.30 NG/ML Total Protein 6.6 6.4-8.2 GM/DL Albumin 3.5 3.2-4.5 GM/DL Blood Gas Puncture Site RIGHT RADIAL Blood Gas Patient Temperature 39.1 Arterial Blood pH 7.39 7.37-7.43 Arterial Blood Partial Pressure CO2 60 H 35-45 MMHG Arterial Blood Partial Pressure O2 93 79-93 MMHG Arterial Blood HCO3 36 H 23-27 MMOL/L Arterial Blood Total CO2 38.1 H 21.0-31.0 MMOL/L Arterial Blood Oxygen Saturation 97 94-100 % Arterial Blood Base Excess 9.3 H -2.5-2.5 MMOL/L Claudy Test NEGATIVE Blood Gas Ventilator Setting NO Blood Gas Inspired Oxygen ROOM AIR Urine Color STRAW Urine Clarity SLIGHTLY CLOUDY Urine pH 5.5 5-9 Urine Specific [place] 1.025 H 1.016-1.022 Urine Protein 1+ H NEGATIVE Urine Glucose (UA) NEGATIVE NEGATIVE Urine Ketones NEGATIVE NEGATIVE Urine Nitrite POSITIVE H NEGATIVE Urine Bilirubin NEGATIVE NEGATIVE Urine Urobilinogen 0.2 < = 1.0 MG/DL Urine Leukocyte Esterase NEGATIVE NEGATIVE Urine RBC (Auto) 1+ H NEGATIVE Urine RBC NONE /HPF Urine WBC 5-10 H /HPF Urine Squamous Epithelial Cells 5-10 /HPF Urine Crystals NONE /LPF Urine Bacteria LARGE H /HPF Urine Casts PRESENT /LPF Urine Granular Casts 0-2 H /LPF Urine Coarse Granular Casts /LPF Urine Mucus NEGATIVE /LPF Urine Culture Indicated YES Micro Results Microbiology 11/12/19 Influenza Types A,B Antigen (SUSANA) - Final, Complete My Orders Orders - JONI QUINONEZ MD Iv Heplock-Insert (Order) (11/12/19 22:21) Blood Culture (11/12/19 22:21) Lactic Acid Analyzer (11/12/19 22:21) Cbc With Automated Diff (11/12/19 22:21) Comprehensive Metabolic Panel (11/12/19 22:21) Urinalysis (11/12/19 22:21) Arterial Blood Gas (11/12/19 22:21) Chest Pa/Lat (2 View) (11/12/19 22:21) Levalbuterol (Non-Formulary) (Xopenex (N (11/12/19 22:45) Manual Differential (11/12/19 22:30) Blood Culture (11/12/19 22:40) Diltiazem Injection (Cardizem Injection) (11/12/19 23:00) Diltiazem Drip Pre-Mix (Cardizem Drip Pr (11/12/19 23:00) Bipap (Bilevel) Set Up (11/12/19 23:04) Piperacillin/Tazobactam (Bulk) (Zosyn In (11/12/19 23:15) Catheter(Urinary) Care .0300, 1500 (11/12/19 23:10) Troponin I Fs (11/12/19 23:11) Ns Iv 1000 Ml (Sodium Chloride 0.9%) (11/12/19 23:15) Influenza A And B Antigens (11/12/19 23:23) Piperacillin Sodium/Tazobactam (Zosyn Vi (11/12/19 23:18) Diltiazem Injection (Cardizem Injection) (11/12/19 23:30) Urine Culture (11/12/19 23:21) Oseltamivir 75 Mg Capsule (Tamiflu 75 (11/13/19 00:00) Medications Given in ED Current Medications Medications Dose Ordered Sig/Arsh Route Start Time Stop Time Status Last Admin Dose Admin Diltiazem HCl 10 mg ONCE ONCE IVP 11/12/19 23:00 11/12/19 23:01 DC 11/12/19 23:08 10 MG Diltiazem HCl 10 mg ONCE ONCE IVP 11/12/19 23:30 11/12/19 23:31 DC 11/12/19 23:34 10 MG Piperacillin Sod/ Tazobactam Sod 4.5 gm/Sodium Chloride 120 ml @ 240 mls/hr ONCE ONCE IV 11/12/19 23:15 11/12/19 23:44 DC 11/12/19 23:31 240 MLS/HR Vital Signs/I&O 11/12/19 11/12/19 22:48 23:20 Temp 39.1 Pulse 125 135 Resp 34 32 B/P (MAP) Pulse Ox 95 99 O2 Delivery Nasal Cannula O2 Flow Rate 5.00 100.00 Progress Progress Note : Progress Note Hb 10.6 white blood count 19,300 CMP essentially normal troponin negative lactate normal at 1.25 on high flow nasal oxygen ABG pH 7.39 PCO2 60 PaO2 93, patient now on BiPAP chest x-ray to my reading shows bilateral lower lung pulmonary infiltrates left greater than right blood culture has been obtained and Zosyn IV being given the patient did take Levaquin for presumed pneumonia last month + history of atrial fib is on Cardizem and xarelto she's had some episodes of very rapid narrow complex rhythm almost 200 rate she's been given x2 10 mg boluses of Cardizem and is on a drip at 10 an hour her rate has settled down into the 110 to 115 range Situation discussed with patient's son he wants her to come to [facility] call made to transfer line awaiting return call from hospitalist for transfer Influenza A has now come back positive Departure Impression Primary Impression: Pneumonia Qualified Codes: J18.1 - Lobar pneumonia, unspecified organism Additional Impressions: Influenza A Rapid atrial fibrillation Disposition: SHT-TRM HOSP Condition: Stable Transfer Transfer Reason: Patient preference (son is anesthesiologist, requests transfer to [facility]) Time Spoke to Accepting Phy: 00:02 Transfer Time: 00:10 Transfer Facility: Patient accepted by hospitalist Dr. Olivo request that we give a dose of IV vanc, which has been ordered Method of Transfer: EMS Departure-Patient Inst. Referrals: BARBARA MARTINEZ MD (PCP/Family) Primary Care Physician JONI QUINONEZ MD Nov 12, 2019 22:35
[2019-11-12] MEDS ORDERED: RT-LEVALBUTEROL (XOPENEX) 1.25 MG/3 ML NEB NON-FORMULARY INH SCH (22:45)
[2019-11-12 22:52] LABS: HEMATOCRIT 37 % (35-52); HEMOGLOBIN 10.6 G/DL (11.5-16.0); MEAN CORPUSCULAR HEMOGLOBIN 28 PG (25-34); MEAN CORPUSCULAR HGB CONC 29 G/DL (32-36); MEAN CORPUSCULAR VOLUME 98 FL (80-99); MEAN PLATELET VOLUME 9.2 FL (7.4-10.4); PLATELET COUNT 264 10^3/uL (130-400); RED CELL DISTRIBUTION WIDTH 18.4 % (10.0-14.5); WHITE BLOOD COUNT 19.3 10^3/uL (4.3-11.0)
[2019-11-12 22:53] LABS: BASOPHILS % (AUTO) 0 % (0-10); EOSINOPHILS % (AUTO) 0 % (0-10); LYMPHOCYTES # (AUTO) 0.6 X 10^3 (1.0-4.0); LYMPHOCYTES % (AUTO) 3 % (12-44); MONOCYTES # (AUTO) 1.4 X 10^3 (0.0-1.0); MONOCYTES % (AUTO) 7 % (0-12); NEUTROPHILS # (AUTO) 17.1 X 10^3 (1.8-7.8); NEUTROPHILS % (AUTO) 89 % (42-75)
--- NOTE | 2019-11-12 22:58 | NUR ---
pt hr increased to 200, ekg performed
[2019-11-12] MEDS ORDERED: dilTIAZem DRIP PRE-MIX 125 ML IV SCH (23:00)
[2019-11-12 23:11] LABS: ABG BASE EXCESS 9.3 MMOL/L (-2.5-2.5); ABG OXYGEN SATURATION 97 % (94-100); ABG PCO2 60 MMHG (35-45); ABG PH 7.39 (7.37-7.43); ABG PO2 93 MMHG (79-93); ABG TCO2 38.1 MMOL/L (21.0-31.0)
[2019-11-12 23:12] LABS: ALLENS TEST NEGATIVE; INSPIRED O2 ROOM AIR; PATIENT TEMP 39.1; VENTILATOR NO
[2019-11-12] MEDS ORDERED: NS IV 1000 ML 1,000 ML IV SCH (23:15)
[2019-11-12] MEDS ORDERED: PIPERACILLIN/TAZOBACTAM (BULK) 4.5 GM in NS (IVPB) 100 ML IV ONE (23:15)
[2019-11-12 23:18] LABS: ALBUMIN 3.5 GM/DL (3.2-4.5); BILIRUBIN,TOTAL 0.3 MG/DL (0.1-1.0); CALCIUM 9.3 MG/DL (8.5-10.1); CREATININE SERUM 1.23 MG/DL (0.60-1.30); POTASSIUM 4.7 MMOL/L (3.6-5.0); TOTAL PROTEIN 6.6 GM/DL (6.4-8.2)
[2019-11-12] MEDS ORDERED: PIPERACILLIN/TAZO 4.5 GM VIAL (ZOSYN) IV ONE (23:18)
[2019-11-12 23:20] VITALS: BP 121/42
[2019-11-12 23:25] LABS: BAND NEUTROPHILS 1 %; LYMPHOCYTES % (MANUAL) 1 %; MONOCYTES % (MANUAL) 10 %; NEUTROPHILS % (MANUAL) 88 %; POLYCHROMASIA SLIGHT; TOXIC GRANULATION/VACUOLAZATIO 3+
--- NOTE | 2019-11-12 23:30 | NUR ---
pt hr increased back to 190's, 10 mg cardizem bolus ordered
[2019-11-12 23:35] LABS: BACTERIA,URINE LARGE /HPF; BILIRUBIN,URINE NEGATIVE (NEGATIVE); CLARITY,URINE SLIGHTLY CLOUDY; COLOR,URINE STRAW; GLUCOSE, URINE (UA) NEGATIVE (NEGATIVE); KETONES,URINE NEGATIVE (NEGATIVE); LEUKOCYTE ESTERASE ,URINE NEGATIVE (NEGATIVE); NITRITE,URINE POSITIVE (NEGATIVE); PH,URINE 5.5 (5-9); PROTEIN,URINE 1+ (NEGATIVE)
[2019-11-12 23:37] LABS: GRANULAR CASTS,URINE 0-2 /LPF
[2019-11-13] MEDS ORDERED: OSELTAMIVIR 75 MG (TAMIFLU) CAPSULE PO ONE
[2019-11-13] MEDS ORDERED: VANCOMYCIN 1000 MG/VIAL ONE (00:14)
[2019-11-13] MEDS ORDERED: VANCOMYCIN INJECTION 1,000 MG in NS (IVPB) 250 ML IV SCH (00:15)
[2019-11-13 01:15] VITALS: BP 103/89
--- NOTE | 2019-11-13 01:15 | NUR ---
ems here for transport to [facility]
--- NOTE | 2019-11-13 08:12 | Diagnostic Imaging Report ---
INDICATION: Shortness of breath. Comparison to prior study from 10/24/2019. FINDINGS: When compared to the prior examination there has not been evidence of significant interval change. There is some persistent obscuration of the left costophrenic angle which may relate to small effusion or scarring. There are background chronic interstitial changes present within the lungs. Heart size prominent but stable. Central pulmonary vascularity appears appropriate. There is no pneumothorax. There are unchanged remote right-sided rib fractures and there are advanced arthritic changes present in the right shoulder. IMPRESSION: 1. No significant interval change compared to the prior examination. There is enlargement of the cardiac silhouette without evidence of current overt failure. There is some persistent blunting of the left costophrenic angle. Small effusion is not excluded though this likely reflects a prominent epicardial fat pad or scar. Background interstitial changes within the lungs are unchanged. Remote rib fractures are noted. Dictated by: Dictated on workstation # [id number]
== END 2019-11-13 01:15 | disposition short-term general hospital (02) ==
LOC: EDUNIT# 22:11 → ER FS 22:13
DX: J10.00 Influenza due to other identified influenza virus with unspecified type of pneumonia (principal); I48.91 Unspecified atrial fibrillation; Z86.79 Personal history of other diseases of the circulatory system; Z88.6 Allergy status to analgesic agent; Z88.8 Allergy status to other drugs, medicaments and biological substances
CPT/HCPCS: 36415; 51702; 71046; 80053; 81000; 82805; 83605; 84484; 85007; 85027; 87040; 87077; 87088; 87186; 87804; 94660

== ENCOUNTER 2020-01-21 09:58 | Emergency (ER) | payer MEDICARE ==
[~2020-01-21] VITALS: Ht 170 cm; Wt 95.3 kg
[2020-01-21] MEDS ORDERED: NS IV 1000 ML 1,000 ML IV STA (09:59)
--- NOTE | 2020-01-21 10:09 | ED General ---
General Chief Complaint: Fever-Adult/Adol Stated Complaint: FEVER Nursing Triage Note: Patient presents via EMS from assisted living with concerns of fever, AMS, draining wound of L leg and incontinence Nursing Sepsis Screen: Possible Severe Sepsis Risk Source of Information: Patient, EMS, EMS Notes Reviewed, RN/MD, RN Notes Reviewed Exam Limitations: No Limitations History of Present Illness Date Seen by Provider: January 21, 2020 Time Seen by Provider: 09:55 Initial Comments This patient is a 79-year-old female presents to the emergency department some confusion and fever. Patient is from [facility]. On exam patient has a foul odor and also has a lesion on her left lower extremity that appears to be covered reportedly wound has been there for a few days. The states today it was red and indurated and draining pus. Lesion appears to have been infected and presents for multiple days. Concerning the patient possible low probable sepsis. Reportedly the patient has had some confusion felt to answer questions appropriately. Patient is alert to her name and date of but most of the questions she would state no. We'll do medical evaluation treatment is needed. Timing/Duration: 4-6 Hours Severity: Moderate Associated Systoms: Fever/Chills, Other Allergies and Home Medications Allergies Coded Allergies: aspirin (Verified Allergy, Unknown, 11/24/18) albuterol (Verified Adverse Reaction, Unknown, afib rvr, 11/24/18) Uncoded Allergies: PLASTIC TAPE (Adverse Reaction, Unknown, 11/24/18) Home Medications Levofloxacin 500 Mg Tablet, 500 MG PO DAILY Prescribed by: BIGG RUDOLPH on 10/25/19 0106 Patient Home Medication List Home Medication List Reviewed: Yes Review of Systems Review of Systems Constitutional: No no symptoms reported; see HPI; No chills, No diaphoresis, No dizziness; fever; No malaise, No weakness, No weight gain, No weight loss, No other EENTM: No see HPI, No no symptoms reported, No ear discharge, No hearing loss, No ear pain, No blurred vision, No double vision, No eye pain, No tearing, No vision loss, No dental problems, No hoarseness, No mouth pain, No mouth swelling, No epistaxis, No nose congestion, No nose pain, No throat pain, No throat swelling, No other Respiratory: No no symptoms reported, No see HPI, No cough, No dyspnea on exertion, No hemoptysis, No orthopnea, No phlegm, No short of breath, No stridor, No wheezing, No other Cardiovascular: No no symptoms reported, No see HPI, No chest pain, No edema, No Hx of Intervention, No palpitations, No syncope, No vascular heart diseas, No other Gastrointestinal: No RUQ, No LUQ, No RLQ, No LLQ, No no symptoms reported, No see HPI, No abdominal pain, No constipation, No diarrhea, No dysphagia, No hematemesis, No heartburn, No jaundice, No loss of appetite, No melena, No nausea, No vomiting, No other Musculoskeletal: No no symptoms reported; see HPI; No back pain, No gout, No joint pain, No joint swelling, No muscle pain, No muscle stiffness, No muscle cramps, No muscle twitching, No muscle weakness, No neck pain; other Skin: No no symptoms reported; see HPI; No change in color, No change in hair/nails, No dryness, No hx of skin cancer; lesions; No lumps, No pruritus, No rash, No other Psychiatric/Neurological: Denies No Symptoms Reported; See HPI; Denies Anxiety, Denies Depressed, Denies Emotional Problems, Denies Headache, Denies Numbness, Denies Paresthesia, Denies Pre-Existing Deficit, Denies Seizure, Denies Tingling, Denies Tremors, Denies Weakness, Denies Other All Other Systems Reviewed Negative Unless Noted: Yes Past Yilptjp-Xsirps-Jltuaw Hx Patient Social History Alcohol Use: Denies Use Recreational Drug Use: No Smoking Status: Never a Smoker 2nd Hand Smoke Exposure: No Recent Foreign Travel: No Contact w/Someone Who Travel: No Recent Infectious Disease Expo: No Recent Hopitalizations: No Seasonal Allergies Seasonal Allergies: No Past Medical History Surgeries: Yes Lumpectomy, Tonsillectomy Respiratory: Yes Asthma, COPD Cardiac: Yes (CHF) Atrial Fibrillation Neurological: No Genitourinary: No Gastrointestinal: No Musculoskeletal: Yes Arthritis Endocrine: No HEENT: No Cancer: No Psychosocial: No Integumentary: No Blood Disorders: No Physical Exam-Suspected Sepsis Physical Exam Vital Signs Vital Signs - First Documented 01/21/20 10:00 Temp 39.0 Pulse 103 Resp 28 B/P (MAP) 90/30 (50) Pulse Ox 96 O2 Delivery Nasal Cannula O2 Flow Rate 2.00 Capillary Refill : Less Than 3 Seconds Blood Pressure Mean: 50 Height, Weight, BMI Height: 5'3.00" Weight: 224lbs. oz. 101.140798zk; 32.00 BMI Method:Stated General Appearance: No Apparent Distress, WD/WN HEENT: PERRL/EOMI, TMs Normal, Normal ENT Inspection, Pharynx Normal Neck: Full Range of Motion, Normal Inspection, Non Tender, Supple Respiratory: Chest Non Tender, Lungs Clear, Normal Breath Sounds, No Accessory Muscle Use, No Respiratory Distress Cardiovascular: Regular Rate, Rhythm, No Edema, No Gallop, No JVD, No Murmur Gastrointestinal: Normal Bowel Sounds, No Organomegaly, No Pulsatile Mass, Non Tender, Soft Extremity: No Calf Tenderness, Inflammation, Other (patient appears to have a ulcerated lesions on the anterior portion of the lower left leg. Appears have some pus draining from the wound.) Neurologic/Psychiatric: Disoriented, Other (patient appears to be somewhat confused and slow to respond. But is awake and talking.) Skin: ulcerations (left lower extremity as discussed above) Lymphatic: No Adenopathy Focused Exam Lactate Level 01/21/20 10:09: Lactic Acid Level 1.19 Lactic Acid Level Laboratory Tests Test 01/21/20 10:09 Lactic Acid Level 1.19 MMOL/L (0.50-2.00) Progress/Results/Core Measures Suspected Sepsis Recent Fever Within 48 Hours: Yes Infection Criteria Present: Suspected New Infection New/Unexplained Altered Menta: Yes Sepsis Screen: Possible Severe Sepsis Risk SIRS Temperature: Pulse: 103 Respiratory Rate: 28 Laboratory Tests 01/21/20 10:09: White Blood Count 19.0H Blood Pressure 90 /30 Mean: 50 01/21/20 10:09: Lactic Acid Level 1.19 Laboratory Tests 01/21/20 10:09: Creatinine 1.38H, Platelet Count 341, Total Bilirubin 0.3 Results/Orders Lab Results Laboratory Tests Test 01/21/20 10:09 01/21/20 10:42 Range/Units White Blood Count 19.0 H 4.3-11.0 10^3/uL Red Blood Count 4.23 L 4.35-5.85 10^6/uL Hemoglobin 12.1 11.5-16.0 G/DL Hematocrit 40 35-52 % Mean Corpuscular Volume 94 80-99 FL Mean Corpuscular Hemoglobin 29 25-34 PG Mean Corpuscular Hemoglobin Concent 30 L 32-36 G/DL Red Cell Distribution Width 16.7 H 10.0-14.5 % Platelet Count 341 130-400 10^3/uL Mean Platelet Volume 9.3 7.4-10.4 FL Neutrophils (%) (Auto) 87 H 42-75 % Lymphocytes (%) (Auto) 6 L 12-44 % Monocytes (%) (Auto) 6 0-12 % Eosinophils (%) (Auto) 0 0-10 % Basophils (%) (Auto) 0 0-10 % Neutrophils # (Auto) 16.5 H 1.8-7.8 X 10^3 Lymphocytes # (Auto) 1.0 1.0-4.0 X 10^3 Monocytes # (Auto) 1.1 H 0.0-1.0 X 10^3 Eosinophils # (Auto) 0.1 0.0-0.3 10^3/uL Basophils # (Auto) 0.1 0.0-0.1 10^3/uL Neutrophils % (Manual) 78 % Lymphocytes % (Manual) 7 % Monocytes % (Manual) 7 % Eosinophils % (Manual) 2 % Basophils % (Manual) 0 % Band Neutrophils 6 % Sodium Level 141 135-145 MMOL/L Potassium Level 4.6 3.6-5.0 MMOL/L Chloride Level 101 98-107 MMOL/L Carbon Dioxide Level 29 21-32 MMOL/L Anion Gap 11 5-14 MMOL/L Blood Urea Nitrogen 20 H 7-18 MG/DL Creatinine 1.38 H 0.60-1.30 MG/DL Estimat Glomerular Filtration Rate 37 BUN/Creatinine Ratio 14 Glucose Level 80 70-105 MG/DL Lactic Acid Level 1.19 0.50-2.00 MMOL/L Calcium Level 9.4 8.5-10.1 MG/DL Corrected Calcium 10.3 H 8.5-10.1 MG/DL Total Bilirubin 0.3 0.1-1.0 MG/DL Aspartate Amino Transf (AST/SGOT) 15 5-34 U/L Alanine Aminotransferase (ALT/SGPT) 6 0-55 U/L Alkaline Phosphatase 105 40-136 U/L Total Protein 7.1 6.4-8.2 GM/DL Albumin 2.9 L 3.2-4.5 GM/DL Urine Color YELLOW Urine Clarity SLT CLOUDY Urine pH 6.0 5-9 Urine Specific [place] 1.020 1.016-1.022 Urine Protein NEGATIVE NEGATIVE Urine Glucose (UA) NEGATIVE NEGATIVE Urine Ketones NEGATIVE NEGATIVE Urine Nitrite POSITIVE H NEGATIVE Urine Bilirubin NEGATIVE NEGATIVE Urine Urobilinogen 0.2 < = 1.0 MG/DL Urine Leukocyte Esterase TRACE H NEGATIVE Urine RBC (Auto) TRACE H NEGATIVE Urine RBC RARE /HPF Urine WBC 10-25 H /HPF Urine Squamous Epithelial Cells RARE /HPF Urine Crystals NONE /LPF Urine Bacteria LARGE H /HPF Urine Casts NONE /LPF Urine Mucus NONE /LPF Urine Culture Indicated YES My Orders Orders - ALBA SÁNCHEZ MD Wound Culture (01/21/20 09:59) Blood Culture (01/21/20 09:59) Cbc With Automated Diff (01/21/20 09:59) Comprehensive Metabolic Panel (01/21/20 09:59) Urinalysis (01/21/20 09:59) Ekg Tracing (01/21/20 09:59) Chest 1 View Ap/Pa Only (01/21/20 09:59) Ns Iv 1000 Ml (Sodium Chloride 0.9%) (01/21/20 09:59) Lactic Acid Analyzer (01/21/20 09:59) Acetaminophen Tablet/Caplet (Tylenol T (01/21/20 10:15) Manual Differential (01/21/20 10:09) Blood Culture (01/21/20 10:14) Urine Culture (01/21/20 10:42) Ondansetron Injection (Zofran Injectio (01/21/20 11:15) Morphine Injection (Morphine Injection (01/21/20 11:12) Vancomycin Injection (Vancomycin Injecti (01/21/20 11:30) Piperacillin Sodium/Tazobactam (Zosyn Vi (01/21/20 11:30) Medications Given in ED Current Medications Medications Dose Ordered Sig/Arsh Route Start Time Stop Time Status Last Admin Dose Admin Acetaminophen 650 mg ONCE ONCE PO 01/21/20 10:15 01/21/20 10:16 DC 01/21/20 10:20 650 MG Ondansetron HCl 4 mg ONCE ONCE IVP 01/21/20 11:15 01/21/20 11:16 DC 01/21/20 11:25 4 MG Piperacillin Sod/ Tazobactam Sod 3.375 gm/Sodium Chloride 100 ml @ 200 mls/hr ONCE ONCE IV 01/21/20 11:30 01/21/20 11:59 01/21/20 11:44 200 MLS/HR Vancomycin HCl 1000 mg/Sodium Chloride 250 ml @ 250 mls/hr ONCE ONCE IV 01/21/20 11:30 01/21/20 12:29 01/21/20 11:44 250 MLS/HR Vital Signs/I&O 01/21/20 10:00 Temp 39.0 Pulse 103 Resp 28 B/P (MAP) 90/30 (50) Pulse Ox 96 O2 Delivery Nasal Cannula O2 Flow Rate 2.00 Capillary Refill : Less Than 3 Seconds Blood Pressure Mean: 50 Progress Note : Time: 11:48 Progress Note Patient be transferred to [facility] for Dr. Hamilton. He is accepted this patient for transfer. He will see the patient upon arrival. ECG Initial ECG Impression Date: January 21, 2020 Initial ECG Impression Time: 10:19 Initial ECG Rate: 104 Initial ECG Rhythm: S.Tach Initial ECG Intervals: QRS (right bundle-branch block) Initial ECG Impression: Nonspecific Changes Comment Sinus tachycardia with heart rate of 104 left atrial enlargement right bundle- branch block Diagnostic Imaging Diagonstic Imaging: Xray Plain Films/CT/US/NM/MRI: chest Comments Appears to have a trace pleural effusions. Otherwise no acute findings. Departure Impression Primary Impression: Cellulitis and abscess of leg Additional Impression: UTI (urinary tract infection) Disposition: 02 XFER T-[facility]OSP Condition: Stable Transfer Transfer Reason: Exceeds level of care Time Spoke to Accepting Phy: 11:49 Transfer Progress Notes Patient be transferred to [facility] for Dr. Hamilton. He is accepted this patient for transfer. He will see the patient upon arrival. Transfer Time: 11:49 Transfer Facility: [facility] Method of Transfer: EMS Departure-Patient Inst. Referrals: BARBARA MARTINEZ MD (PCP/Family) Primary Care Physician ALBA SÁNCHEZ MD January 21, 2020 10:09
[2020-01-21] MEDS ORDERED: ACETAMINOPHEN 325 MG TABLET PO ONE (10:15)
[2020-01-21 10:31] LABS: BASOPHILS % (AUTO) 0 % (0-10); EOSINOPHILS % (AUTO) 0 % (0-10); HEMATOCRIT 40 % (35-52); HEMOGLOBIN 12.1 G/DL (11.5-16.0); LYMPHOCYTES % (AUTO) 6 % (12-44); MEAN CORPUSCULAR HEMOGLOBIN 29 PG (25-34); MEAN CORPUSCULAR HGB CONC 30 G/DL (32-36); MEAN CORPUSCULAR VOLUME 94 FL (80-99); MEAN PLATELET VOLUME 9.3 FL (7.4-10.4); MONOCYTES % (AUTO) 6 % (0-12); NEUTROPHILS % (AUTO) 87 % (42-75); PLATELET COUNT 341 10^3/uL (130-400); RED CELL DISTRIBUTION WIDTH 16.7 % (10.0-14.5)
--- NOTE | 2020-01-21 10:31 | Diagnostic Imaging Report ---
INDICATION: Fever COMPARISON: 11/12/2019 FINDINGS: Single view of the chest demonstrates cardiac enlargement with slight central vascular congestion. Chronic interstitial changes seen bilaterally. There are trace bilateral pleural effusions. Overall, the appearance is stable and unchanged from the prior exam. No pneumothorax is seen. Osseous structures stable. IMPRESSION: 1. Cardiac enlargement with slight central vascular congestion and chronic interstitial changes 2. Trace bilateral pleural effusion. No significant change from prior exam. Dictated by: Dictated on workstation # [id number]
[2020-01-21 10:32] LABS: BASOPHILS # (AUTO) 0.1 10^3/uL (0.0-0.1); EOSINOPHILS # (AUTO) 0.1 10^3/uL (0.0-0.3); MONOCYTES # (AUTO) 1.1 X 10^3 (0.0-1.0); NEUTROPHILS # (AUTO) 16.5 X 10^3 (1.8-7.8)
[2020-01-21 10:47] LABS: BAND NEUTROPHILS 6 %; BASOPHILS % (MANUAL) 0 %; EOSINOPHILS % (MANUAL) 2 %; LYMPHOCYTES % (MANUAL) 7 %; MONOCYTES % (MANUAL) 7 %; NEUTROPHILS % (MANUAL) 78 %
[2020-01-21 10:57] LABS: POTASSIUM 4.6 MMOL/L (3.6-5.0)
[2020-01-21 10:58] LABS: ALBUMIN 2.9 GM/DL (3.2-4.5); BILIRUBIN,TOTAL 0.3 MG/DL (0.1-1.0); CALCIUM 9.4 MG/DL (8.5-10.1); CREATININE SERUM 1.38 MG/DL (0.60-1.30); TOTAL PROTEIN 7.1 GM/DL (6.4-8.2)
[2020-01-21 11:03] LABS: BACTERIA,URINE LARGE /HPF; BILIRUBIN,URINE NEGATIVE (NEGATIVE); CLARITY,URINE SLT CLOUDY; COLOR,URINE YELLOW; GLUCOSE, URINE (UA) NEGATIVE (NEGATIVE); KETONES,URINE NEGATIVE (NEGATIVE); LEUKOCYTE ESTERASE ,URINE TRACE (NEGATIVE); NITRITE,URINE POSITIVE (NEGATIVE); PROTEIN,URINE NEGATIVE (NEGATIVE); RBC,URINE RARE /HPF; SQUAMOUS EPITHELIAL CELL,UR RARE /HPF
[2020-01-21] MEDS ORDERED: morphine INJ 10 MG/ML 1ML (SYR OR VIAL) IVP STA (11:12)
[2020-01-21] MEDS ORDERED: ONDANSETRON 4 MG/2 ML (SDV) Z0FRAN IVP ONE (11:15)
[2020-01-21] MEDS ORDERED: VANCOMYCIN INJECTION 1,000 MG in NS (IVPB) 250 ML IV ONE (11:30)
[2020-01-21] MEDS ORDERED: PIPERACILLIN SODIUM/TAZOBACTAM 3.375 GM in NS (IVPB) 100 ML IV ONE (11:30)
[2020-01-21 11:46] VITALS: BP 117/57
[2020-01-21] MEDS ORDERED: FUROSEMIDE 40 MG/4 ML INJ (LASIX) ONE (12:47)
[2020-01-21] MEDS ORDERED: RT-LEVALBUTEROL (XOPENEX) 1.25 MG/3 ML NEB NON-FORMULARY ONE (12:56)
[2020-01-21] MEDS ORDERED: NALOXONE 0.4 MG/ML 1 ML (NARCAN) VIAL IV ONE (13:00)
[2020-01-21] MEDS ORDERED: FUROSEMIDE 40 MG/4 ML INJ (LASIX) IVP ONE (13:00)
[2020-01-21] MEDS ORDERED: NS IV 1000 ML 1,000 ML ONE (13:21)
--- NOTE | 2020-01-21 13:23 | Diagnostic Imaging Report ---
Indication: Fever. Comparison: 01/21/2020 Findings: Single view of the chest demonstrates cardiac enlargement. There is persistent but decreased central vascular congestion. Trace effusions are present. Osseous structures stable. There is no pneumothorax. Impression: Slightly improved aeration in both lungs. Dictated by: Dictated on workstation # [id number]
[2020-01-21 13:53] VITALS: BP 98/58
== END 2020-01-21 13:56 | disposition short-term general hospital (02) ==
LOC: EDUNIT# 09:58 → ER FS 09:59
DX: L03.116 Cellulitis of left lower limb (principal); L02.416 Cutaneous abscess of left lower limb; N39.0 Urinary tract infection, site not specified; I50.9 Heart failure, unspecified; Z88.6 Allergy status to analgesic agent; Z88.8 Allergy status to other drugs, medicaments and biological substances
CPT/HCPCS: 36415; 51702; 71045; 80053; 81000; 83605; 84484; 85007; 85027; 87040; 87070; 87077; 87088; 87205; 93005

== ENCOUNTER → 2020-02-03 | Outpatient (CLI) | payer MEDICARE | LOC: LAB FS 13:59 | PROVIDERS: ATTEND Pediatrics | DX: Z11.59 Encounter for screening for other viral diseases (principal) | CPT/HCPCS: 87635 ==

== ENCOUNTER 2020-11-01 09:04 | Emergency (ER) | payer MEDICARE ==
[~2020-11-01] VITALS: Ht 157.4 cm; Wt 79.5 kg
--- NOTE | 2020-11-01 09:34 | ED Fall/Injury ---
General Chief Complaint: General Problems/Pain Stated Complaint: AMS Source: patient, EMS History of Present Illness Date Seen by Provider: Nov 01, 2020 Time Seen by Provider: 09:05 Initial Comments 79-year-old female presenting with EMS from [facility] having complaints of low oxygen saturation and pain to the right chest and abdomen. She had fallen from a chair when doing a transfer to another chair yesterday around noon. She has chronic oxygen use of 2 L/min. 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 Her O2 was bumped up to 4 L/min to get her up to 100%. Dr. Martinez her primary care provider had wanted her to get x-rays to check for fractures or injuries yesterday when she had the fall but the patient refused feeling that they were not necessary. However today when she was having difficulty getting her oxygen saturation up she agreed to come by EMS to be evaluated. She also states that she had some dark stools that may be had blood in them earlier in the week. She has had normal colored stools since that time. She does take Xarelto for a blood thinner due to atrial fibrillation. She has been having some right-sided abdominal pain even before having fallen out of the chair during the transfer yesterday. She denies hitting her head or having any head trauma or loss of consciousness. Location Injury Occurred: [facility] Occurred: yesterday (Around noon) Severity: moderate Injuries/Pain Location: chest (Right chest wall), abdomen (Right abdomen) Context: slipped (Slipped as she was trying to transfer from 1 chair to another) Loss of Consciousness: no loss of consciousness Modifying Factors: Worse With Movement Associated Symptoms (Fall): Abdominal Pain (Right-sided, but was having right- sided abdominal pain even before falling out of the chair), Chest Pain (Right- sided chest wall pain); No Confusion, No Dizziness, No Headache, No Lightheadedness, No Muscle Spasms, No Nausea/Vomiting, No Neck Pain, No Ringing in Ears, No Seizures; Shortness of Air (Chronic and she does not feel it is any worse than normal); No Slurred Speech; Trouble Walking (Chronic and not worse than normal); No Vision Changes Allergies and Home Medications Allergies Coded Allergies: aspirin (Verified Allergy, Unknown, 11/24/18) albuterol (Verified Adverse Reaction, Unknown, afib rvr, 11/24/18) Uncoded Allergies: PLASTIC TAPE (Adverse Reaction, Unknown, 11/24/18) Home Medications Acetaminophen 650 Mg Tablet.er, 1,300 MG PO BID, (Reported) Budesonide 0.5 Mg/2 Ml Ampul.neb, 0.5 MG IH BID, (Reported) Calcium Carbonate/Vitamin D3 1 Each Tab.chew, 2 EACH PO DAILY, (Reported) Diltiazem HCl 240 Mg Cap.er.24h, 240 MG PO DAILY, (Reported) Ferrous Sulfate 325 Mg Tablet, 325 MG PO DAILY, (Reported) Fish Oil/Borage/Flax/Om3,6,9#1 1,200 Mg Capsule, 1,200 MG PO DAILY, (Reported) Furosemide 20 Mg Tablet, 20 MG PO DAILY, (Reported) Furosemide 20 Mg Tablet, 20 MG PO DAILY, (Reported) Gabapentin 300 Mg Capsule, 300 MG PO BID, (Reported) Levalbuterol HCl 1.25 Mg/3 Ml Vial.neb, 1.25 MG INH BID, (Reported) Levofloxacin 750 Mg Tablet, 750 MG PO DAILY Prescribed by: BIGG RUDOLPH on 11/01/20 1148 Levothyroxine Sodium 112 Mcg Capsule, 112 MCG PO DAILY, (Reported) Montelukast Sodium 10 Mg Tablet, 10 MG PO DAILY, (Reported) Pantoprazole Sodium 40 Mg Tablet.dr, 40 MG PO DAILY, (Reported) Potassium Chloride 20 Meq Tab.er.prt, 20 MEQ PO BID, (Reported) Rivaroxaban 20 Mg Tablet, 20 MG PO DAILY, (Reported) Tiotropium [place] 1 Inh Aerp, 2 INH IH DAILY, (Reported) Patient Home Medication List Home Medication List Reviewed: Yes Review of Systems Review of Systems Constitutional: No chills, No diaphoresis, No dizziness, No fever Eyes: Denies Blurred Vision, Denies Photophobia Ears, Nose, Mouth, Throat: denies ear pain, denies ear discharge, denies nose pain, denies nose discharge, denies epistaxis Respiratory: cough (Chronic), dyspnea on exertion (Chronic and not worse than normal); No hemoptysis; short of breath (Chronic and not worse than normal) Cardiovascular: see HPI, chest pain (Right-sided chest wall pain since falling out of the chair yesterday during the transfer from 1 chair to another); No syncope Gastrointestinal: see HPI; No nausea, No vomiting Genitourinary: No dysuria, No hematuria Musculoskeletal: No back pain Skin: other (Bruising to the right shoulder and chest wall) Psychiatric/Neurological: Denies Headache, Denies Numbness; Weakness (Generalized chronic) Past Yupgpbl-Mldljx-Axkdoj Hx Past Med/Social Hx: Reviewed Nursing Past Med/Soc Hx Patient Social History 2nd Hand Smoke Exposure: No Recent Hopitalizations: No Seasonal Allergies Seasonal Allergies: No Past Medical History Surgeries: Yes Lumpectomy, Tonsillectomy Respiratory: Yes Asthma, COPD Cardiac: Yes (CHF) Atrial Fibrillation Neurological: No Genitourinary: No Gastrointestinal: No Musculoskeletal: Yes Arthritis Endocrine: No HEENT: No Cancer: No Psychosocial: No Integumentary: No Blood Disorders: No Physical Exam Vital Signs Vital Signs - First Documented 11/01/20 09:04 Temp 36.5 Pulse 81 Resp 18 B/P (MAP) 108/54 (72) Pulse Ox 100 O2 Delivery Nasal Cannula O2 Flow Rate 4.00 Capillary Refill : Height, Weight, BMI Height: 5'3.00" Weight: 224lbs. oz. 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, alert, normal mood/affect, oriented x 3 Skin: warm/dry, ecchymosis (Several areas of bruising in various stages of healing) [place] Coma Score Best Eye Response: (4) Open Spontaneously Best Verbal Response: (5) Oriented Best Motor Response: (6) Obeys Commands Yancy Total: 15 Progress/Results/Core Measures Results/Orders Lab Results Laboratory Tests Test 11/01/20 10:19 11/01/20 10:21 Range/Units Urine Color DARK YELLOW Urine Clarity CLEAR Urine pH 6.0 5-9 Urine Specific [place] 1.025 H 1.016-1.022 Urine Protein NEGATIVE NEGATIVE Urine Glucose (UA) NEGATIVE NEGATIVE Urine Ketones 1+ H NEGATIVE Urine Nitrite NEGATIVE NEGATIVE Urine Bilirubin 2+ H NEGATIVE Urine Urobilinogen 0.2 < = 1.0 MG/DL Urine Leukocyte Esterase NEGATIVE NEGATIVE Urine RBC (Auto) NEGATIVE NEGATIVE Urine RBC 0-2 /HPF Urine WBC 0-2 /HPF Urine Squamous Epithelial Cells 2-5 /HPF Urine Crystals NONE /LPF Urine Bacteria NEGATIVE /HPF Urine Casts PRESENT /LPF Urine Hyaline Casts 25-50 H /LPF Urine Mucus LARGE H /LPF Urine Culture Indicated NO White Blood Count 10.2 4.3-11.0 10^3/uL Red Blood Count 3.60 L 4.35-5.85 10^6/uL Hemoglobin 10.6 L 11.5-16.0 G/DL Hematocrit 36 35-52 % Mean Corpuscular Volume 100 H 80-99 FL Mean Corpuscular Hemoglobin 29 25-34 PG Mean Corpuscular Hemoglobin Concent 29 L 32-36 G/DL Red Cell Distribution Width 15.3 H 10.0-14.5 % Platelet Count 325 130-400 10^3/uL Mean Platelet Volume 8.9 7.4-10.4 FL Immature Granulocyte % (Auto) 1 % Neutrophils (%) (Auto) 74 42-75 % Lymphocytes (%) (Auto) 12 12-44 % Monocytes (%) (Auto) 10 0-12 % Eosinophils (%) (Auto) 3 0-10 % Basophils (%) (Auto) 1 0-10 % Neutrophils # (Auto) 7.5 1.8-7.8 X 10^3 Lymphocytes # (Auto) 1.2 1.0-4.0 X 10^3 Monocytes # (Auto) 1.0 0.0-1.0 X 10^3 Eosinophils # (Auto) 0.3 0.0-0.3 10^3/uL Basophils # (Auto) 0.1 0.0-0.1 10^3/uL Immature Granulocyte # (Auto) 0.1 0.0-0.1 10^3/uL Prothrombin Time 25.5 H 12.2-14.7 SEC INR Comment 2.3 H 0.8-1.4 Activated Partial Thromboplast Time 53 H 24-35 SEC Sodium Level 142 135-145 MMOL/L Potassium Level 4.5 3.6-5.0 MMOL/L Chloride Level 100 98-107 MMOL/L Carbon Dioxide Level 34 H 21-32 MMOL/L Anion Gap 8 5-14 MMOL/L Blood Urea Nitrogen 28 H 7-18 MG/DL Creatinine 1.22 0.60-1.30 MG/DL Estimat Glomerular Filtration Rate 43 BUN/Creatinine Ratio 23 Glucose Level 68 L 70-105 MG/DL Calcium Level 9.1 8.5-10.1 MG/DL Corrected Calcium 9.7 8.5-10.1 MG/DL Total Bilirubin 0.4 0.1-1.0 MG/DL Aspartate Amino Transf (AST/SGOT) 14 5-34 U/L Alanine Aminotransferase (ALT/SGPT) 8 0-55 U/L Alkaline Phosphatase 90 40-136 U/L Total Protein 6.6 6.4-8.2 GM/DL Albumin 3.2 3.2-4.5 GM/DL Lipase 10 8-78 U/L My Orders Orders - BIGG RUDOLPH MD Comprehensive Metabolic Panel (11/01/20 10:08) Lipase (11/01/20 10:08) Ua Culture If Indicated (11/01/20 10:08) Ed Iv/Invasive Line Start (11/01/20 10:08) Cbc With Automated Diff (11/01/20 10:08) Protime With Inr (11/01/20 10:08) Partial Thromboplastin Time (11/01/20 10:08) O2 (11/01/20 10:08) Ct Chest/Abdomen/Pelvis Wo (11/01/20 10:08) Levofloxacin Tablet (Levaquin Tablet) (11/01/20 11:44) Vital Signs/I&O 11/01/20 11/01/20 11/01/20 11/01/20 09:04 09:04 09:30 10:00 Temp 36.5 Pulse 81 78 76 Resp 18 18 18 B/P (MAP) 108/54 (72) 108/54 (72) 107/57 (74) Pulse Ox 100 100 98 99 O2 Delivery Nasal Cannula Nasal Cannula Nasal Cannula Room Air O2 Flow Rate 4.00 4.00 2.00 2.00 2/25/11/01/20 11/01/20 11/01/20 11:00 12:00 12:20 12:20 Temp 36.6 36.6 Pulse 74 73 65 65 Resp 18 18 18 18 B/P (MAP) 98/55 (69) 110/46 (67) 110/46 (67) 107/43 (72) Pulse Ox 98 98 97 97 O2 Delivery Nasal Cannula Nasal Cannula Room Air Nasal Cannula O2 Flow Rate 2.00 2.00 2.00 2.00 Progress Progress Note #1: Progress Note Obtain basic labs as well as CT scan of the chest abdomen and pelvis. Unfortunately we will need to do this without contrast since her prior labs show renal insufficiency with elevated creatinine and low GFR. This will help to evaluate for any possible fractures of the ribs as well as possible hemothorax. If there is inflammation of the bowel or fluid or blood collection this should still be visible since she has been having symptoms since beginning of the week. If she has a bowel movement will obtain a Hemoccult. If she shows anemia on the blood work will also perform Hemoccult to check for blood in her stools. Since she was 100% on the 4 L of O2 she was dropped down to her normal 2 L of oxygen that she is on all the time and she maintained an O2 sats of 97 to 99%. The oxygen saturation probes or possibly her concentrator may be having issues at [facility] since she seems to be doing fine from an oxygen saturation standpoint on her baseline 2 L/min. Provided her testing comes back without any acute significant abnormality anticipate discharge back to [facility]. Patient does state that one of her sons is a pain management doctor at [employer] and he is the one that encouraged her to come be seen in the emergency department. Progress Note #2: Time: 11:13 Progress Note CBC is stable from prior labs so does not appear worrisome for GI bleed since she is stable on her Hgb. Coags show elevation of all factors, consistent with taking Xarelto. UA has elevated specific gravity to go along with pt needing to drink more water. Ketones present along with hyaline casts but no bacteria, blood, nitrites, LE for infection. Chemistry shows no acute significant abnormality. BUN 28, Cr 1.2 with GFR 43. Glucose is 68. Awaiting CT report still. Pt remains stable on her baseline 2 Lpm of Oxygen with saturations 97-99%. Progress Note #3: Time: 11:[address] scan does not show any definite fractures or hematoma or blood collections in chest or abdomen. There are scattered areas in both lungs of alveolar densities for possible pneumonia and possible round pneumonia in left upper lung. Radiologist recommends imaging to confirm resolution after treatment. With no elevation or her WBC, no fever or chills, maintaining O2 sat on her baseline home O2 of 2 Lpm will check with pt about treating with antibiotics at [facility] as I do not see any indication for hospitalization. After discussion with pt will treat with 7 day course of Levaquin and give first dose here in ED. Diagnostic Imaging Diagonstic Imaging: CT Plain Films/CT/US/NM/MRI: chest, abdomen, pelvis Comments NAME: YAQUELIN WALTER REC#: [id number] PT STATUS: REG ER : 1940 PHYSICIAN: BIGG RUDOLPH MD ADMIT DATE: 11/01/20/ER FS Draft Date of Exam:11/01/20 CT CHEST/ABDOMEN/PELVIS WO PROCEDURE: CT chest, abdomen, and pelvis without contrast. TECHNIQUE: Multiple contiguous axial images were obtained through the chest, abdomen, and pelvis without the use of intravenous contrast. Auto Exposure Controls were utilized during the CT exam to meet ALARA standards for radiation dose reduction. INDICATION: Recent fall. Right-sided chest pain. Abdominal pain. Melena. COMPARISON: None FINDINGS: CT CHEST: Evaluation of the lung laughlin demonstrates patchy airspace opacities within both lung bases. Additionally, there are tree-in-bud micronodular opacities involving the superior segment of the right lower lobe. Similar-appearing micronodular density is seen within the posterior left upper lobe. There are a few other patchy groundglass densities of the bilateral upper lobes. There is more focal nodular lesion within the superior segment of the left lower lobe that measures 2.6 x 2.3 cm. There is no prior CT chest for comparison purposes. There is no large effusion or pneumothorax. Cardiomediastinal structures show normal heart size. There is a small pericardial effusion. Moderate calcified coronary and mild scattered calcified aortic atherosclerosis is also noted. No pathologically enlarged or morphologically abnormal adenopathy is seen within the mediastinum, archana, nor axilla. Osseous structures show age-related degenerative changes. Old posterior lateral right rib fractures are noted. No acute appearing osseous abnormalities are identified on today's exam. CT ABDOMEN: Normal appendix is identified. Small bowel loops are nondistended. There is fat-containing periumbilical hernia. Ostia measures 3 cm. There is no loculated fluid collection, free fluid, nor free air within the abdomen. No abnormal mesenteric or retroperitoneal adenopathy is seen. The kidneys, adrenal glands, spleen, pancreas, and liver have an unremarkable noncontrast CT appearance. There is moderate scattered calcified aortic and arterial atherosclerosis. Osseous structures show age-related degenerative changes. No acute bony abnormalities are identified. CT PELVIS: Urinary bladder is unopacified and minimally distended. The urinary bladder is also partially obscured secondary to metallic beam hardening artifact from right hip prosthesis. No calculi are seen within the urinary bladder. There is no loculated fluid collection, free fluid or free air within the pelvis. No abnormal lymph nodes are identified. Osseous structures show no acute abnormalities. IMPRESSION: 1. No acute abnormalities are seen within the abdomen or pelvis. 2. Large fat-containing periumbilical hernia. 3. Multiple scattered alveolar densities throughout both lungs suspicious for pneumonia. Clinical correlation and follow-up to resolution is advised. 4. More focal masslike density involving the superior segment of the left lower lobe. This may be on the basis of rounded pneumonia as well, but follow-up to resolution is advised. Dictated on workstation # [id number] Dict: 11/01/20 1048 Trans: 11/01/20 1113 [facility] [id number] Interpreted by: CRISTY WHITE MD Electronically signed by: Departure Impression Primary Impression: Contusion of right chest wall Qualified Codes: S20.211A - Contusion of right front wall of thorax, initial encounter Additional Impressions: Contusion of abdominal wall, initial encounter Fall from chair, initial encounter Diffuse pneumonia Disposition: 01 HOME, SELF-CARE Condition: Stable Departure-Patient Inst. Decision time for Depature: 11:47 Referrals: BARBARA MARTINEZ MD (PCP/Family) Primary Care Physician Patient Instructions: Pneumonia, Adult ED, Minor Contusion ED, Bruised Rib (DC) Add. Discharge Instructions: Take Levaquin for 7 days total and first dose was given here in the Emergency Department. Check with [facility] the concentrater to see if it has a problem since the oxygen saturation is staying up here without any problems on 2 [address]pm[address] Check back with Dr. Martinez as needed about bruised rib/chest wall and repeat Chest xray in 1-2 weeks to check about improvement after treatment for pneumonia. All discharge instructions reviewed with patient and/or family. Voiced understanding. Scripts Levofloxacin (Levofloxacin) 750 Mg Tablet 750 MG PO DAILY for pneumonia for 6 Days, #6 TAB 0 Refills Prov: BIGG RUDOLPH MD 11/01/20 BIGG RUDOLPH MD Nov 01, 2020 09:34
[2020-11-01 10:46] LABS: EOSINOPHILS % (AUTO) 3 % (0-10); HEMATOCRIT 36 % (35-52); HEMOGLOBIN 10.6 G/DL (11.5-16.0); LYMPHOCYTES % (AUTO) 12 % (12-44); MEAN CORPUSCULAR HEMOGLOBIN 29 PG (25-34); MEAN CORPUSCULAR HGB CONC 29 G/DL (32-36); MEAN CORPUSCULAR VOLUME 100 FL (80-99); MEAN PLATELET VOLUME 8.9 FL (7.4-10.4); MONOCYTES % (AUTO) 10 % (0-12); NEUTROPHILS % (AUTO) 74 % (42-75); PLATELET COUNT 325 10^3/uL (130-400); WHITE BLOOD COUNT 10.2 10^3/uL (4.3-11.0)
[2020-11-01 10:47] LABS: BASOPHILS # (AUTO) 0.1 10^3/uL (0.0-0.1); BASOPHILS % (AUTO) 1 % (0-10); EOSINOPHILS # (AUTO) 0.3 10^3/uL (0.0-0.3); LYMPHOCYTES # (AUTO) 1.2 X 10^3 (1.0-4.0); NEUTROPHILS # (AUTO) 7.5 X 10^3 (1.8-7.8)
[2020-11-01 10:49] LABS: BACTERIA,URINE NEGATIVE /HPF; BILIRUBIN,URINE 2+ (NEGATIVE); CLARITY,URINE CLEAR; COLOR,URINE DARK YELLOW; GLUCOSE, URINE (UA) NEGATIVE (NEGATIVE); KETONES,URINE 1+ (NEGATIVE); LEUKOCYTE ESTERASE ,URINE NEGATIVE (NEGATIVE); NITRITE,URINE NEGATIVE (NEGATIVE); PROTEIN,URINE NEGATIVE (NEGATIVE); RBC,URINE 0-2 /HPF; WBC,URINE 0-2 /HPF
[2020-11-01 10:50] LABS: HYALINE CASTS, URINE 25-50 /LPF
[2020-11-01 10:54] LABS: INR 2.3 (0.8-1.4); PROTHROMBIN TIME PATIENT 25.5 SEC (12.2-14.7)
[2020-11-01 11:09] LABS: ALBUMIN 3.2 GM/DL (3.2-4.5); BILIRUBIN,TOTAL 0.4 MG/DL (0.1-1.0); CALCIUM 9.1 MG/DL (8.5-10.1); CREATININE SERUM 1.22 MG/DL (0.60-1.30); POTASSIUM 4.5 MMOL/L (3.6-5.0); TOTAL PROTEIN 6.6 GM/DL (6.4-8.2)
--- NOTE | 2020-11-01 11:14 | Diagnostic Imaging Report ---
PROCEDURE: CT chest, abdomen, and pelvis without contrast. TECHNIQUE: Multiple contiguous axial images were obtained through the chest, abdomen, and pelvis without the use of intravenous contrast. Auto Exposure Controls were utilized during the CT exam to meet ALARA standards for radiation dose reduction. INDICATION: Recent fall. Right-sided chest pain. Abdominal pain. Melena. COMPARISON: None FINDINGS: CT CHEST: Evaluation of the lung laughlin demonstrates patchy airspace opacities within both lung bases. Additionally, there are tree-in-bud micronodular opacities involving the superior segment of the right lower lobe. Similar-appearing micronodular density is seen within the posterior left upper lobe. There are a few other patchy groundglass densities of the bilateral upper lobes. There is more focal nodular lesion within the superior segment of the left lower lobe that measures 2.6 x 2.3 cm. There is no prior CT chest for comparison purposes. There is no large effusion or pneumothorax. Cardiomediastinal structures show normal heart size. There is a small pericardial effusion. Moderate calcified coronary and mild scattered calcified aortic atherosclerosis is also noted. No pathologically enlarged or morphologically abnormal adenopathy is seen within the mediastinum, archana, nor axilla. Osseous structures show age-related degenerative changes. Old posterior lateral right rib fractures are noted. No acute appearing osseous abnormalities are identified on today's exam. CT ABDOMEN: Normal appendix is identified. Small bowel loops are nondistended. There is fat-containing periumbilical hernia. Ostia measures 3 cm. There is no loculated fluid collection, free fluid, nor free air within the abdomen. No abnormal mesenteric or retroperitoneal adenopathy is seen. The kidneys, adrenal glands, spleen, pancreas, and liver have an unremarkable noncontrast CT appearance. There is moderate scattered calcified aortic and arterial atherosclerosis. Osseous structures show age-related degenerative changes. No acute bony abnormalities are identified. CT PELVIS: Urinary bladder is unopacified and minimally distended. The urinary bladder is also partially obscured secondary to metallic beam hardening artifact from right hip prosthesis. No calculi are seen within the urinary bladder. There is no loculated fluid collection, free fluid or free air within the pelvis. No abnormal lymph nodes are identified. Osseous structures show no acute abnormalities. IMPRESSION: 1. No acute abnormalities are seen within the abdomen or pelvis. 2. Large fat-containing periumbilical hernia. 3. Multiple scattered alveolar densities throughout both lungs suspicious for pneumonia. Clinical correlation and follow-up to resolution is advised. 4. More focal masslike density involving the superior segment of the left lower lobe. This may be on the basis of rounded pneumonia as well, but follow-up to resolution is advised. Dictated by: Dictated on workstation # [id number]
[2020-11-01] MEDS ORDERED: PANT40TA2 PO (11:24)
[2020-11-01] MEDS ORDERED: RIVA20TA PO (11:24)
[2020-11-01] MEDS ORDERED: CALC-857 PO (11:24)
[2020-11-01] MEDS ORDERED: BUDE0.5A IH (11:24)
[2020-11-01] MEDS ORDERED: GABA300C PO (11:24)
[2020-11-01] MEDS ORDERED: ACET650T41 PO (11:24)
[2020-11-01] MEDS ORDERED: FISH12002 PO (11:24)
[2020-11-01] MEDS ORDERED: TIOT18CA2 IH (11:24)
[2020-11-01] MEDS ORDERED: MONT10TA21 PO (11:24)
[2020-11-01] MEDS ORDERED: LEVO112C4 PO (11:24)
[2020-11-01] MEDS ORDERED: POTA20TA15 PO (11:24)
[2020-11-01] MEDS ORDERED: FERR325T18 PO (11:24)
[2020-11-01] MEDS ORDERED: DILT240C86 PO (11:24)
[2020-11-01] MEDS ORDERED: LEVA1.2527 INH (11:24)
[2020-11-01] MEDS ORDERED: FURO-125 PO (11:24)
[2020-11-01] MEDS ORDERED: LEVOFLOXACIN 500 MG TAB (LEVAQUIN) PO STA (11:44)
[2020-11-01] MEDS ORDERED: LEVO750T39 PO (11:48)
[2020-11-01 12:20] VITALS: BP 107/43
== END 2020-11-01 12:20 | disposition home or self-care (01) ==
LOC: EDUNIT# 09:04 → ER FS 09:07
DX: S20.211A Contusion of right front wall of thorax, initial encounter (principal); S30.1XXA Contusion of abdominal wall, initial encounter; S40.011A Contusion of right shoulder, initial encounter; J18.9 Pneumonia, unspecified organism; R05 Cough; R06.09 Other forms of dyspnea; I48.91 Unspecified atrial fibrillation; J44.9 Chronic obstructive pulmonary disease, unspecified; R40.2360 Coma scale, best motor response, obeys commands, unspecified time; R40.2250 Coma scale, best verbal response, oriented, unspecified time; R40.2140 Coma scale, eyes open, spontaneous, unspecified time; Z86.79 Personal history of other diseases of the circulatory system; Z79.51 Long term (current) use of inhaled steroids; Z79.890 Hormone replacement therapy; Z79.01 Long term (current) use of anticoagulants; Z88.6 Allergy status to analgesic agent; Z88.8 Allergy status to other drugs, medicaments and biological substances; Z91.048 Other nonmedicinal substance allergy status; Z99.81 Dependence on supplemental oxygen; W07.XXXA Fall from chair, initial encounter; Y92.129 Unspecified place in nursing home as the place of occurrence of the external cause
CPT/HCPCS: 36415; 71250; 74176; 80053; 81000; 83690; 85025; 85610; 85730

== ENCOUNTER 2020-12-12 07:40 | Emergency (ER) | payer MEDICARE ==
[~2020-12-12] VITALS: Ht 152 cm; Wt 79.0 kg
[~2020-12-12 07:40] MED LIST changes: +ACET650T41 PO; +BUDE0.5A IH; +CALC-857 PO; +DILT240C86 PO; +FERR325T18 PO; +FISH12002 PO; +FURO-125 PO; +GABA300C PO; +LEVA1.2527 INH; +LEVO112C4 PO; +LEVO750T39 PO; +MONT10TA21 PO; +PANT40TA2 PO; +POTA20TA15 PO; +RIVA20TA PO; +TIOT18CA2 IH
--- NOTE | 2020-12-12 07:52 | ED General ---
General Stated Complaint: AMS Source of Information: Patient, EMS, Care Home Records, Old Records History of Present Illness Date Seen by Provider: Dec 12, 2020 Time Seen by Provider: 07:40 Initial Comments 80-year-old female presenting with concerns about confusion and altered mental status from the [facility]. Patient had just woken up and not taken her morning medications yet. The staff was checking on her and felt that she was more confused than normal. She had a occipital headache. She uses oxygen all the time but they felt that she was more short of breath than normal. Patient states she remembers this happening and could not give an explanation however she had refused to come to the hospital. The staff had contacted her son who is a physician at [facility] and he made the half-way transport the patient to the ER for evaluation. Patient denies any headache now. She recognizes me from a prior ER visit at the end of October. She has no complaints of any new pain currently. She denies being any more short of breath than normal. She states she has a mild productive cough which is chronic for her. She has no burning with urination. She could not tell me when her last bowel movement was but states that it was recent. She denies any falls or injury. She denies missing any medications. She denies any fever or chills. Associated Systoms: No Chest Pain; Cough (Chronic and at baseline); No Diaphoresis, No Fever/Chills; Headaches (Occipital headache resolved without treatment); No Loss of Appetite, No Malaise, No Nausea/Vomiting, No Rash, No Seizure; Shortness of Air (Chronic and at baseline); No Syncope, No Weakness Allergies and Home Medications Allergies Coded Allergies: aspirin (Verified Allergy, Unknown, 11/24/18) albuterol (Verified Adverse Reaction, Unknown, afib rvr, 11/24/18) Uncoded Allergies: PLASTIC TAPE (Adverse Reaction, Unknown, 11/24/18) Home Medications Acetaminophen 650 Mg Tablet.er, 1,300 MG PO BID, (Reported) Budesonide 0.5 Mg/2 Ml Ampul.neb, 0.5 MG IH BID, (Reported) Calcium Carbonate/Vitamin D3 1 Each Tab.chew, 2 EACH PO DAILY, (Reported) Diltiazem HCl 240 Mg Cap.er.24h, 240 MG PO DAILY, (Reported) Ferrous Sulfate 325 Mg Tablet, 325 MG PO DAILY, (Reported) Fish Oil/Borage/Flax/Om3,6,9#1 1,200 Mg Capsule, 1,200 MG PO DAILY, (Reported) Furosemide 20 Mg Tablet, 20 MG PO DAILY, (Reported) Furosemide 20 Mg Tablet, 20 MG PO DAILY, (Reported) Gabapentin 300 Mg Capsule, 300 MG PO BID, (Reported) Levalbuterol HCl 1.25 Mg/3 Ml Vial.neb, 1.25 MG INH BID, (Reported) Levofloxacin 750 Mg Tablet, 750 MG PO DAILY Prescribed by: BIGG RUDOLPH on 11/01/20 1148 Levothyroxine Sodium 112 Mcg Capsule, 112 MCG PO DAILY, (Reported) Montelukast Sodium 10 Mg Tablet, 10 MG PO DAILY, (Reported) Pantoprazole Sodium 40 Mg Tablet.dr, 40 MG PO DAILY, (Reported) Potassium Chloride 20 Meq Tab.er.prt, 20 MEQ PO BID, (Reported) Rivaroxaban 20 Mg Tablet, 20 MG PO DAILY, (Reported) Tiotropium [place] 1 Inh Aerp, 2 INH IH DAILY, (Reported) Patient Home Medication List Home Medication List Reviewed: Yes Review of Systems Review of Systems Constitutional: No chills, No fever Respiratory: see HPI Cardiovascular: No chest pain; edema (in last few days to legs) Gastrointestinal: no symptoms reported Genitourinary: no symptoms reported Musculoskeletal: no symptoms reported Skin: no symptoms reported Psychiatric/Neurological: See HPI Hematologic/Lymphatic: Easy Bleeding (Taking Xarelto), Easy Bruising (Taking Xarelto) Past Lvdvkni-Ekvprt-Wiqjpz Hx Past Med/Social Hx: Reviewed Nursing Past Med/Soc Hx Patient Social History Alcohol Beverage of Choice: Wine 2nd Hand Smoke Exposure: No Recent Hopitalizations: No Immunizations Up To Date Date of Influenza Vaccine: Jun 07, 2021 Seasonal Allergies Seasonal Allergies: No Past Medical History Surgeries: Yes (Colonoscopy) Lumpectomy, Orthopedic, Tonsillectomy Respiratory: Yes (Chronic O2 dependent, CPAP) Asthma, Sleep Apnea, COPD Cardiac: Yes (CHF (diastolic heart failure), cardiac dysrhythmias) Atrial Fibrillation Neurological: No Genitourinary: No Gastrointestinal: No Musculoskeletal: Yes Arthritis Endocrine: No HEENT: No Cancer: No Psychosocial: No Integumentary: No Blood Disorders: No Physical Exam Vital Signs Vital Signs - First Documented 12/12/20 07:40 Temp 36.7 Pulse 132 Resp 18 B/P (MAP) 133/99 (110) Pulse Ox 98 O2 Delivery Nasal Cannula O2 Flow Rate 2.00 Capillary Refill : Height, Weight, BMI Height: 5'3.00" Weight: 224lbs. oz. 101.368560jf; 32.00 BMI Method:Stated General Appearance: No Apparent Distress, WD/WN HEENT: PERRL/EOMI, Pharynx Normal Neck: Full Range of Motion, Normal Inspection, Non Tender, Supple Respiratory: Chest Non Tender, Lungs Clear, No Accessory Muscle Use, No Respiratory Distress, Decreased Breath Sounds Cardiovascular: Normal Peripheral Pulses, Irregularly Irregular, Tachycardia, Other (1+ edema BLE) Gastrointestinal: Normal Bowel Sounds, No Pulsatile Mass, Non Tender, Soft Rectal: Deferred Extremity: Normal Capillary Refill, No Pedal Edema Neurologic/Psychiatric: Alert, Oriented x3, No Motor/Sensory Deficits, recovery room rn II- XII Norm as Tested Skin: Normal Color, Warm/Dry Focused Exam Lactate Level 12/12/20 08:55: Lactic Acid Level 1.18 Lactic Acid Level Laboratory Tests Test 12/12/20 08:55 Lactic Acid Level 1.18 MMOL/L (0.50-2.00) Progress/Results/Core Measures Suspected Sepsis SIRS Temperature: Pulse: Respiratory Rate: Laboratory Tests 12/12/20 07:55: White Blood Count 14.1H Blood Pressure / Mean: 12/12/20 08:55: Lactic Acid Level 1.18 Laboratory Tests 12/12/20 07:55: Creatinine 0.82, INR Comment 1.1, Platelet Count 330, Total Bilirubin 0.5 Results/Orders Lab Results Laboratory Tests Test 12/12/20 07:55 12/12/20 08:00 12/12/20 08:55 Range/Units White Blood Count 14.1 H 4.3-11.0 10^3/uL Red Blood Count 3.45 L 4.35-5.85 10^6/uL Hemoglobin 10.1 L 11.5-16.0 G/DL Hematocrit 34 L 35-52 % Mean Corpuscular Volume 98 80-99 FL Mean Corpuscular Hemoglobin 29 25-34 PG Mean Corpuscular Hemoglobin Concent 30 L 32-36 G/DL Red Cell Distribution Width 15.2 H 10.0-14.5 % Platelet Count 330 130-400 10^3/uL Mean Platelet Volume 8.7 7.4-10.4 FL Immature Granulocyte % (Auto) 2 % Neutrophils (%) (Auto) 78 H 42-75 % Lymphocytes (%) (Auto) 11 L 12-44 % Monocytes (%) (Auto) 9 0-12 % Eosinophils (%) (Auto) 1 0-10 % Basophils (%) (Auto) 0 0-10 % Neutrophils # (Auto) 10.9 H 1.8-7.8 X 10^3 Lymphocytes # (Auto) 1.5 1.0-4.0 X 10^3 Monocytes # (Auto) 1.2 H 0.0-1.0 X 10^3 Eosinophils # (Auto) 0.1 0.0-0.3 10^3/uL Basophils # (Auto) 0.1 0.0-0.1 10^3/uL Immature Granulocyte # (Auto) 0.3 H 0.0-0.1 10^3/uL Neutrophils % (Manual) 71 % Lymphocytes % (Manual) 11 % Monocytes % (Manual) 7 % Eosinophils % (Manual) 1 % Metamyelocytes % 3 % Band Neutrophils 7 % Hypochromasia 1+ Macrocytosis 1+ Prothrombin Time 14.1 12.2-14.7 SEC INR Comment 1.1 0.8-1.4 Activated Partial Thromboplast Time 25 24-35 SEC Sodium Level 138 135-145 MMOL/L Potassium Level 3.8 3.6-5.0 MMOL/L Chloride Level 99 98-107 MMOL/L Carbon Dioxide Level 29 21-32 MMOL/L Anion Gap 10 5-14 MMOL/L Blood Urea Nitrogen 20 H 7-18 MG/DL Creatinine 0.82 0.60-1.30 MG/DL Estimat Glomerular Filtration Rate > 60 BUN/Creatinine Ratio 24 Glucose Level 71 70-105 MG/DL Calcium Level 9.3 8.5-10.1 MG/DL Corrected Calcium 9.8 8.5-10.1 MG/DL Magnesium Level 2.0 1.6-2.4 MG/DL Total Bilirubin 0.5 0.1-1.0 MG/DL Aspartate Amino Transf (AST/SGOT) 12 5-34 U/L Alanine Aminotransferase (ALT/SGPT) 9 0-55 U/L Alkaline Phosphatase 73 40-136 U/L Troponin I < 0.30 <0.30 NG/ML Pro-B-Type Natriuretic Peptide 15056.0 H <75.0 PG/ML Total Protein 6.5 6.4-8.2 GM/DL Albumin 3.4 3.2-4.5 GM/DL Urine Color YELLOW Urine Clarity CLEAR Urine pH 7.0 5-9 Urine Specific [place] 1.020 1.016-1.022 Urine Protein TRACE H NEGATIVE Urine Glucose (UA) NEGATIVE NEGATIVE Urine Ketones 1+ H NEGATIVE Urine Nitrite NEGATIVE NEGATIVE Urine Bilirubin NEGATIVE NEGATIVE Urine Urobilinogen 0.2 < = 1.0 MG/DL Urine Leukocyte Esterase NEGATIVE NEGATIVE Urine RBC (Auto) NEGATIVE NEGATIVE Urine RBC NONE /HPF Urine WBC 0-2 /HPF Urine Squamous Epithelial Cells RARE /HPF Urine Crystals NONE /LPF Urine Bacteria NEGATIVE /HPF Urine Casts NONE /LPF Urine Mucus NEGATIVE /LPF Urine Culture Indicated NO Lactic Acid Level 1.18 0.50-2.00 MMOL/L My Orders Orders - BIGG RUDOLPH MD Cbc With Automated Diff (12/12/20 07:46) Comprehensive Metabolic Panel (12/12/20 07:46) Chest 1 View Ap/Pa Only (12/12/20 07:46) Magnesium (12/12/20 07:46) Ekg Tracing (12/12/20 07:46) O2 (12/12/20 07:46) Ed Iv/Invasive Line Start (12/12/20 07:46) Sputum Culture (12/12/20 07:46) Monitor-Rhythm Ecg Trace Only (12/12/20 07:46) Ct Head Wo (12/12/20 07:46) Ua Culture If Indicated (12/12/20 07:46) Straight Cath For Spec.-Adult (12/12/20 07:46) Diltiazem Injection (Cardizem Injection) (12/12/20 07:49) Troponin I Fs (12/12/20 07:52) Probnp Fs (12/12/20 07:52) Protime With Inr (12/12/20 07:52) Partial Thromboplastin Time (12/12/20 07:52) Manual Differential (12/12/20 07:55) Blood Culture (12/12/20 08:40) Lactic Acid Analyzer (12/12/20 08:40) Diltiazem Drip Pre-Mix (Cardizem Drip Pr (12/12/20 09:04) Potassium Cl 10meq/50ml Ivpb (Kcl 10 Meq (12/12/20 09:05) Piperacillin Sodium/Tazobactam (Zosyn Vi (12/12/20 09:05) Vital Signs/I&O 12/12/20 12/12/20 12/12/20 07:40 07:40 15:06 Temp 36.7 36.0 Pulse 132 132 Resp 18 20 B/P (MAP) 133/99 (110) 127/104 Pulse Ox 98 98 99 O2 Delivery Nasal Cannula Nasal Cannula Nasal Cannula O2 Flow Rate 2.00 2.00 Capillary Refill : Progress Note #1: Progress Note Obtain CT of her head without contrast to evaluate for intracranial hemorrhage, mass, stroke, tumor. Chest x-ray to evaluate for pneumonia, pleural effusion, pulmonary mass, cardiomegaly, pulmonary vascular congestion for heart failure. Obtain labs to evaluate her electrolytes and blood count as well as cardiac enzymes. Obtain urinalysis to evaluate for possible UTI. Obtain electrocardiogram to evaluate her irregular fast heart rate with her history of atrial fibrillation. Place her on engine monitor to help telemetry on the patient and monitor her heart rhythm and rate. Initial telemetry monitoring shows sinus tachycardia with rate in the 110s with frequent PVCs and nonsustained ventricular tachycardia. Differential diagnosis would include for her confusion this morning it may just be related to chronic dementia and staff asking questions right after she woke up, stroke, intracranial hemorrhage, brain tumor or mass, pneumonia, pulmonary mass or tumor, cardiomegaly, heart failure causing pulmonary vascular congestion, UTI, myocardial infarction. For her fast irregular heart rate since she takes diltiazem at home chronically we will give an extra 10 mg IV dose to see if that helps with her heart rate. The electrocardiogram shows a sinus tachycardia with an nonsustained run of ventricular tachycardia. Progress Note #2: Time: 08:26 Progress Note CBC shows elevated WBC count to 14.1 with left shift, Chronic anemia with stable Hgb 10.1. UA with 1+ Ketones and specific gravity of 1.020 but negative LE, Nit, WBC or bacteria. After Diltiazem of 10 mg IV she continued to have HR irregular with sinus tachycardia and runs of nonsustaine ventricular tachycardia and frequent PVCs. Cardiac telemetry monitoring continues to show heart rate in the 100-110s sinus tachycardia with frequent PVCs and nonsustained short runs of ventricular tachycardia. Awaiting electrolytes and cardiac labs to see if pt has electrolyte abnormalities to correct that might be causing this or signs of heart failure. Progress Note #3: Time: 08:37 Progress Note CXR with increased perihilar density and small pleural effusion. No definite infiltrate. CT head no acute abnormality. Progress Note #4: Time: 09:07 Progress Note Troponin came back at less than 0.30 and proBNP of 17,110. On telemetry monito ring her heart rate continues to fluctuate between atrial fibrillation with rapid ventricular response, runs of nonsustained ventricular tachycardia, sinus tachycardia with frequent PVCs. With her magnesium normal at 2.0 and her potassium is low normal at 3.8 and no other significant electrolyte imbalance or sign of renal or liver failure will try supplementing her potassium with 10 mEq IV x1 to see if that might help with her frequent PVCs and atrial fibrillation and runs of nonsustained V. tach. We will start her on a diltiazem drip to help with her heart rate. For the possibility of pneumonia mixed in with her pleural effusion and increased perihilar lung markings blood cultures and lactic acid were ordered prior to starting Zosyn 4.5 g 0907 d/w ALMA DELIA Almaguer, at transfer center and he took her information and will work on finding a bed for the patient. 921 update her son Arley Silva, MALIA, about the findings and plan to transfer pt. Progress Note #5: Time: 09:54 Progress Note Lactic acid normal at 1.14. ALMA DELIA Almaguer, with called back and stated that Dr. Cheo Hernandez accepted the pt for transfer. Will call back as soon as a bed is available for patient. Telemetry monitoring continues to fluctuate from nonsustained Ventricular tachycardia to atrial fibrillation with RVR despite diltiazem drip. Blood pressure stable and pt comfortable without pain. Progress Note #6: Time: 14:12 Progress Note Pt remains stable and has good blood pressure. Despite the diltiazem drip she continues to have heart rate 140-160s. She is frustrated about waiting so long for a bed to get admitted to . I called and spoke with ALMA DELIA Herr, and she advised me that they had multiple admit holds that had been waiting in the ED overnight and were working through admits as quickly as they could as people were discharged. She states she will check to see what the time frame might be on the patient for transfer and call us back. ECG Initial ECG Impression Date: Dec 12, 2020 Initial ECG Impression Time: 07:44 Initial ECG Rate: 105 Initial ECG Rhythm: A Fib/Flutter Initial ECG Comparisson: Unchanged Comment Sinus tachycardia with a heart rate of 105 bpm. Nonsustained run of V. tach. Right bundle branch block. NM interval of 131 ms. QT interval 376 ms with a QTc interval 498 ms. Appears similar to prior tracings other than the run of nonsustained ventricular tachycardia. Diagnostic Imaging Diagonstic Imaging: Xray Plain Films/CT/US/NM/MRI: chest Comments NAME: YAQUELIN SILVA [facility] REC#: [id number] PT STATUS: REG ER : 1940 PHYSICIAN: BIGG RUDOLPH MD ADMIT DATE: 12/12/20/ER FS Draft Date of Exam:12/12/20 CHEST 1 VIEW AP/PA ONLY INDICATION: Headache, confusion and dyspnea AP view of the chest is obtained with comparison made to study of 01/21/2020. There is suboptimal inspiration. There is blunting of left costo phrenic sulcus. Pulmonary vessels are prominent with increased density in the perihilar regions compared to previous study. IMPRESSION: Increasing bilateral perihilar density likely related to edema or pneumonitis with mild left pleural fluid and/or thickening. Follow-up PA and lateral views of the chest would be useful for additional assessment. Dictated on workstation # [id number] Dict: 12/12/20827 Trans: 12/12/20 0832 [facility] [id number] Interpreted by: IVANIA POST MD Electronically signed by: Diagonstic Imaging: CT Plain Films/CT/US/NM/MRI: head Comments [facility]. [place], [place] NAME: YAQUELIN SILVA [employer] [facility] [facility] REC#: [id number] PT STATUS: REG ER : 1940 PHYSICIAN: BIGG RUDOLPH MD ADMIT DATE: 12/12/20/ER FS Draft Date of Exam:12/12/20 CT HEAD WO PROCEDURE: CT head without contrast. TECHNIQUE: Multiple contiguous axial images were obtained through the brain without the use of intravenous contrast. Auto Exposure Controls were utilized during the CT exam to meet ALARA standards for radiation dose reduction. INDICATION: Head pain, confusion, shortness of breath, atrial fibrillation. No relevant comparison. FINDINGS: There is no intracranial hemorrhage, hydrocephalus, edema, mass, mass effect or evidence for an elevation of the intracranial pressures. The basilar cisterns are patent. There is no sulcal effacement. There is no loss of the normal guerra-white matter differentiations. Orbits, sinuses, and calvarium appeared nonacute. IMPRESSION: Normal CT head Dictated on workstation # [id number] Dict: 12/12/20826 Trans: 12/12/20829 [facility] [id number] Interpreted by: IVANIA ROQUE Electronically signed by: Critical Care Note Critical Care Total Time (minutes) 70 minutes Progress 70 minutes of critical care time were spent in direct care of the patient. This time excludes separately billable procedures. Time includes obtaining history from patient, medical records, EMS, half-way notes, family, ordering labs and reviewing results, ordering interventions and reviewing response, discussion with consultants and transfer center, documentation in the chart. Patient was at risk of imminent cardiac failure and demise and required direct management Departure Impression Primary Impression: Atrial fibrillation with rapid ventricular response Additional Impressions: Nonsustained paroxysmal ventricular tachycardia New onset of congestive heart failure Pleural effusion on left Pneumonia Qualified Codes: J18.9 - Pneumonia, unspecified organism Disposition: XF SHT-TRM HOSP Condition: Critical Transfer Transfer Reason: Exceeds level of care (Cardiology and pt preference to go to for continuity of care) Time Spoke to Accepting Phy: 09:54 Transfer Progress Notes 0907 call placed to [facility] transfer center and spoke with Tripp FLNANERY. He took information on the patient and will call back after speaking with the staff. [phone] ALMA DELIA Almaguer, called back and patient accepted by Dr. Cheo Hernandez for transfer. Will call back once a bed assignment has been obtained. Transfer Facility: [facility] Method of Transfer: EMS Departure-Patient Inst. Referrals: BARBARA MARTINEZ MD (PCP/Family) Primary Care Physician BIGG RUDOLPH MD Dec 12, 2020 07:52
[2020-12-12 08:20] LABS: BASOPHILS % (AUTO) 0 % (0-10); EOSINOPHILS % (AUTO) 1 % (0-10); HEMATOCRIT 34 % (35-52); HEMOGLOBIN 10.1 G/DL (11.5-16.0); LYMPHOCYTES % (AUTO) 11 % (12-44); MEAN CORPUSCULAR HEMOGLOBIN 29 PG (25-34); MEAN CORPUSCULAR HGB CONC 30 G/DL (32-36); MEAN CORPUSCULAR VOLUME 98 FL (80-99); MEAN PLATELET VOLUME 8.7 FL (7.4-10.4); MONOCYTES % (AUTO) 9 % (0-12); NEUTROPHILS # (AUTO) 10.9 X 10^3 (1.8-7.8); NEUTROPHILS % (AUTO) 78 % (42-75); PLATELET COUNT 330 10^3/uL (130-400); WHITE BLOOD COUNT 14.1 10^3/uL (4.3-11.0)
[2020-12-12 08:21] LABS: BASOPHILS # (AUTO) 0.1 10^3/uL (0.0-0.1); EOSINOPHILS # (AUTO) 0.1 10^3/uL (0.0-0.3); LYMPHOCYTES # (AUTO) 1.5 X 10^3 (1.0-4.0); MONOCYTES # (AUTO) 1.2 X 10^3 (0.0-1.0)
[2020-12-12 08:24] LABS: CLARITY,URINE CLEAR; COLOR,URINE YELLOW; GLUCOSE, URINE (UA) NEGATIVE (NEGATIVE); KETONES,URINE 1+ (NEGATIVE); NITRITE,URINE NEGATIVE (NEGATIVE); PROTEIN,URINE TRACE (NEGATIVE)
[2020-12-12 08:25] LABS: BACTERIA,URINE NEGATIVE /HPF; BILIRUBIN,URINE NEGATIVE (NEGATIVE); LEUKOCYTE ESTERASE ,URINE NEGATIVE (NEGATIVE); SQUAMOUS EPITHELIAL CELL,UR RARE /HPF; WBC,URINE 0-2 /HPF
[2020-12-12 08:30] LABS: BAND NEUTROPHILS 7 %; EOSINOPHILS % (MANUAL) 1 %; HYPOCHROMASIA 1+; LYMPHOCYTES % (MANUAL) 11 %; METAMYELOCYTES % 3 %; MONOCYTES % (MANUAL) 7 %; NEUTROPHILS % (MANUAL) 71 %
[2020-12-12 08:31] LABS: INR 1.1 (0.8-1.4); PROTHROMBIN TIME PATIENT 14.1 SEC (12.2-14.7)
--- NOTE | 2020-12-12 08:31 | Diagnostic Imaging Report ---
PROCEDURE: CT head without contrast. TECHNIQUE: Multiple contiguous axial images were obtained through the brain without the use of intravenous contrast. Auto Exposure Controls were utilized during the CT exam to meet ALARA standards for radiation dose reduction. INDICATION: Head pain, confusion, shortness of breath, atrial fibrillation. No relevant comparison. FINDINGS: There is no intracranial hemorrhage, hydrocephalus, edema, mass, mass effect or evidence for an elevation of the intracranial pressures. The basilar cisterns are patent. There is no sulcal effacement. There is no loss of the normal guerra-white matter differentiations. Orbits, sinuses, and calvarium appeared nonacute. IMPRESSION: Normal CT head Dictated by: Dictated on workstation # [id number]
--- NOTE | 2020-12-12 08:33 | Diagnostic Imaging Report ---
INDICATION: Headache, confusion and dyspnea AP view of the chest is obtained with comparison made to study of 01/21/2020. There is suboptimal inspiration. There is blunting of left costo phrenic sulcus. Pulmonary vessels are prominent with increased density in the perihilar regions compared to previous study. IMPRESSION: Increasing bilateral perihilar density likely related to edema or pneumonitis with mild left pleural fluid and/or thickening. Follow-up PA and lateral views of the chest would be useful for additional assessment. Dictated by: Dictated on workstation # [id number]
[2020-12-12 08:34] LABS: ALANINE AMINOTRANSFERASE 9 U/L (0-55); ALBUMIN 3.4 GM/DL (3.2-4.5); ALKALINE PHOSPHATASE 73 U/L (40-136); BILIRUBIN,TOTAL 0.5 MG/DL (0.1-1.0); BUN/CREATININE RATIO 24; CALCIUM 9.3 MG/DL (8.5-10.1); CARBON DIOXIDE 29 MMOL/L (21-32); CHLORIDE 99 MMOL/L (98-107); CREATININE SERUM 0.82 MG/DL (0.60-1.30); GFR ESTIMATED > 60; GLUCOSE 71 MG/DL (70-105); POTASSIUM 3.8 MMOL/L (3.6-5.0); SODIUM 138 MMOL/L (135-145); TOTAL PROTEIN 6.5 GM/DL (6.4-8.2)
[2020-12-12] MEDS ORDERED: dilTIAZem DRIP PRE-MIX 125 ML IV STA (09:04)
[2020-12-12] MEDS ORDERED: POTASSIUM CL 10MEQ/50ML IVPB 50 ML IV STA (09:05)
[2020-12-12] MEDS ORDERED: PIPERACILLIN SODIUM/TAZOBACTAM 4.5 GM in NS (IVPB) 100 ML IV STA (09:05)
[2020-12-12 15:06] VITALS: BP 127/104
== END 2020-12-12 15:09 | disposition short-term general hospital (02) ==
LOC: EDUNIT# 07:40 → ER FS 07:41
DX: I48.20 Chronic atrial fibrillation, unspecified (principal); I47.2 Ventricular tachycardia; I11.0 Hypertensive heart disease with heart failure; I50.9 Heart failure, unspecified; J90 Pleural effusion, not elsewhere classified; J18.9 Pneumonia, unspecified organism; J44.9 Chronic obstructive pulmonary disease, unspecified; Z88.8 Allergy status to other drugs, medicaments and biological substances; Z79.01 Long term (current) use of anticoagulants
CPT/HCPCS: 36415; 51701; 70450; 71045; 80053; 81000; 83605; 83735; 83880; 84484; 85007; 85027; 85610; 85730; 87040; 93005; 93041; 99291

== ENCOUNTER 2020-12-23 08:07 | Emergency (ER) | payer MEDICARE ==
[2020-12-23] MEDS ORDERED: RT-ALBUTEROL/IPRATROPIUM 3 ML (DUONEB) VIAL INH ONE (08:30)
[2020-12-23 08:32] LABS: HEMATOCRIT 31 % (35-52); HEMOGLOBIN 8.7 G/DL (11.5-16.0); MEAN CORPUSCULAR HEMOGLOBIN 29 PG (25-34); MEAN CORPUSCULAR HGB CONC 28 G/DL (32-36); MEAN CORPUSCULAR VOLUME 104 FL (80-99); PLATELET COUNT 351 10^3/uL (130-400); WHITE BLOOD COUNT 10.7 10^3/uL (4.3-11.0)
[2020-12-23 08:33] LABS: BASOPHILS # (AUTO) 0.1 10^3/uL (0.0-0.1); BASOPHILS % (AUTO) 1 % (0-10); EOSINOPHILS # (AUTO) 0.3 10^3/uL (0.0-0.3); EOSINOPHILS % (AUTO) 3 % (0-10); LYMPHOCYTES # (AUTO) 1.2 X 10^3 (1.0-4.0); LYMPHOCYTES % (AUTO) 11 % (12-44); MEAN PLATELET VOLUME 9.1 FL (7.4-10.4); MONOCYTES # (AUTO) 1.2 X 10^3 (0.0-1.0); MONOCYTES % (AUTO) 12 % (0-12); NEUTROPHILS # (AUTO) 7.6 X 10^3 (1.8-7.8); NEUTROPHILS % (AUTO) 71 % (42-75)
--- NOTE | 2020-12-23 08:37 | Diagnostic Imaging Report ---
EXAMINATION: Chest 1 view HISTORY: Shortness of breath, recent pacemaker placement COMPARISON: Chest radiograph 12/12/2020 FINDINGS: Stable enlargement of the cardiac silhouette with interval surgical changes from pacemaker placement. There are prominent pulmonary vasculature which can be seen with pulmonary vascular congestion. There are mild patchy interstitial airspace opacities throughout both lungs with stable blunting of the left costophrenic angle. Degenerative changes of the spine and shoulders. Chronic appearing right rib fractures. IMPRESSION: 1. Surgical changes from left sided pacemaker placement. No pneumothorax. 2. Stable left pleural effusion or pleural thickening with left basilar atelectasis or consolidation. 3. Stable cardiomegaly and pulmonary vascular congestion. 4. Stable patchy interstitial and airspace opacities throughout both lungs compared to 12/12/2020. Findings can be seen with pulmonary edema, atelectasis, or pneumonia. Dictated by: Dictated on workstation # [id number]
[2020-12-23 08:41] LABS: ABG PH 7.32 (7.37-7.43)
[2020-12-23 08:42] LABS: ABG BASE EXCESS 10.2 MMOL/L (-2.5-2.5); ABG OXYGEN SATURATION 99 % (94-100); ABG PCO2 76 MMHG (35-45); ABG PO2 147 MMHG (79-93); ABG TCO2 41.5 MMOL/L (21.0-31.0); ALLENS TEST NEG; INSPIRED O2 6L; VENTILATOR NO
[2020-12-23 08:43] LABS: PATIENT TEMP 36.5
[2020-12-23 08:55] LABS: ALANINE AMINOTRANSFERASE 7 U/L (0-55); ALBUMIN 3.4 GM/DL (3.2-4.5); ALKALINE PHOSPHATASE 85 U/L (40-136); BILIRUBIN,TOTAL 0.4 MG/DL (0.1-1.0); BUN/CREATININE RATIO 26; CARBON DIOXIDE 33 MMOL/L (21-32); CHLORIDE 107 MMOL/L (98-107); GFR ESTIMATED 60; GLUCOSE 86 MG/DL (70-105); POTASSIUM 4.4 MMOL/L (3.6-5.0); SODIUM 145 MMOL/L (135-145); TOTAL PROTEIN 6.5 GM/DL (6.4-8.2)
[2020-12-23] MEDS ORDERED: methylPREDNISolone 125 MG (Solu-MEDROL) VIAL IM ONE (09:30)
[2020-12-23] MEDS ORDERED: FUROSEMIDE 40 MG/4 ML INJ (LASIX) IVP ONE (09:30)
[2020-12-23 10:22] LABS: BACTERIA,URINE TRACE /HPF; BILIRUBIN,URINE NEGATIVE (NEGATIVE); CLARITY,URINE CLEAR; COLOR,URINE YELLOW; GLUCOSE, URINE (UA) NEGATIVE (NEGATIVE); HYALINE CASTS, URINE 0-2 /LPF; KETONES,URINE NEGATIVE (NEGATIVE); LEUKOCYTE ESTERASE ,URINE TRACE (NEGATIVE); NITRITE,URINE NEGATIVE (NEGATIVE); PROTEIN,URINE NEGATIVE (NEGATIVE)
--- NOTE | 2020-12-23 11:34 | ED General ---
General Chief Complaint: Respiratory Problems Stated Complaint: SOA Nursing Triage Note: Brought in by EMS from [facility] for low O2 sats. Staff was getting oxygen saturations in 50's, EMS reports 73% on arrival. Placed on nonrebreather and sats returned to 99% quickly. Is 100% on arrival to ED on nonrebreather. Wears Oxygen at 2L continually at home. Was in for pacemaker placement 5 days ago. Nursing Sepsis Screen: Possible Sepsis Risk Source of Information: Patient Exam Limitations: No Limitations History of Present Illness Date Seen by Provider: Dec 23, 2020 Time Seen by Provider: 08:15 Initial Comments Patient is an 80-year-old female with history of asthma, congestive heart failure, permanent atrial fibrillation with recent pacemaker placement at [facility] 1 week ago who presents with shortness of breath. Patient was discharged to her nursing facility 3 days ago. Patient wears 2 L of oxygen at baseline but reports becoming gradually more short of breath over the past 3 days. On EMS arrival, the patient's O2 saturation was in the 50s to 70s. Patient placed on a nonrebreather with quick recovery with an O2 saturation of 99%. Patient denies chest pain chest tightness palpitations. She denies productive cough, fever chills, nausea vomiting or sweats. She denies increased leg pain or swelling. Patient is currently anticoagulated. Timing/Duration: 3-4 Days Severity: Moderate Modifying Factors: improves with Other Associated Systoms: Other Allergies and Home Medications Allergies Coded Allergies: aspirin (Verified Allergy, Unknown, 11/24/18) albuterol (Verified Adverse Reaction, Unknown, afib rvr, 11/24/18) Uncoded Allergies: PLASTIC TAPE (Adverse Reaction, Unknown, 11/24/18) Home Medications Acetaminophen 650 Mg Tablet.er, 1,300 MG PO BID, (Reported) Budesonide 0.5 Mg/2 Ml Ampul.neb, 0.5 MG IH BID, (Reported) Calcium Carbonate/Vitamin D3 1 Each Tab.chew, 2 EACH PO DAILY, (Reported) Diltiazem HCl 240 Mg Cap.er.24h, 240 MG PO DAILY, (Reported) Ferrous Sulfate 325 Mg Tablet, 325 MG PO DAILY, (Reported) Fish Oil/Borage/Flax/Om3,6,9#1 1,200 Mg Capsule, 1,200 MG PO DAILY, (Reported) Furosemide 20 Mg Tablet, 20 MG PO DAILY, (Reported) Furosemide 20 Mg Tablet, 20 MG PO DAILY, (Reported) Gabapentin 300 Mg Capsule, 300 MG PO BID, (Reported) Levalbuterol HCl 1.25 Mg/3 Ml Vial.neb, 1.25 MG INH BID, (Reported) Levofloxacin 750 Mg Tablet, 750 MG PO DAILY Prescribed by: BIGG RUDOLPH on 11/01/20 1148 Levothyroxine Sodium 112 Mcg Capsule, 112 MCG PO DAILY, (Reported) Montelukast Sodium 10 Mg Tablet, 10 MG PO DAILY, (Reported) Pantoprazole Sodium 40 Mg Tablet.dr, 40 MG PO DAILY, (Reported) Potassium Chloride 20 Meq Tab.er.prt, 20 MEQ PO BID, (Reported) Rivaroxaban 20 Mg Tablet, 20 MG PO DAILY, (Reported) Tiotropium [place] 1 Inh Aerp, 2 INH IH DAILY, (Reported) Patient Home Medication List Home Medication List Reviewed: Yes Review of Systems Review of Systems Constitutional: see HPI Respiratory: see HPI Cardiovascular: see HPI Gastrointestinal: see HPI Genitourinary: see HPI Musculoskeletal: see HPI Skin: see HPI Psychiatric/Neurological: See HPI Hematologic/Lymphatic: See HPI Immunological/Allergic: see HPI All Other Systems Reviewed Negative Unless Noted: Yes Past Seqmyxt-Ptpqip-Caswri Hx Past Med/Social Hx: Reviewed Nursing Past Med/Soc Hx Patient Social History Alcohol Use: Denies Use Number of Drinks Today: Alcohol Beverage of Choice: Wine Smoking Status: Never a Smoker 2nd Hand Smoke Exposure: No Recent Infectious Disease Expo: No Recent Hopitalizations: No Immunizations Up To Date Date of Influenza Vaccine: Jun 07, 2021 Seasonal Allergies Seasonal Allergies: No Past Medical History Surgeries: Yes (Colonoscopy) Lumpectomy, Orthopedic, Tonsillectomy Respiratory: Yes (Chronic O2 dependent, CPAP) Asthma, Sleep Apnea, COPD Cardiac: Yes (CHF (diastolic heart failure), cardiac dysrhythmias) Atrial Fibrillation Neurological: No Genitourinary: No Gastrointestinal: No Musculoskeletal: Yes Arthritis Endocrine: No HEENT: No Cancer: No Psychosocial: No Integumentary: No Blood Disorders: No Physical Exam Vital Signs Vital Signs - First Documented 12/23/20 08:18 Temp 36.5 Pulse 109 Resp 21 B/P (MAP) 145/56 (85) Pulse Ox 100 O2 Delivery Non Rebreather O2 Flow Rate 12.00 Capillary Refill : Less Than 3 Seconds Height, Weight, BMI Height: 5'3.00" Weight: 224lbs. oz. [id number]; 34.00 BMI Method:Stated General Appearance: Mild Distress Eyes: Bilateral Eye Normal Inspection, Bilateral Eye PERRL, Bilateral Eye EOMI HEENT: PERRL/EOMI, TMs Normal, Pharynx Normal Neck: Non Tender, Supple Respiratory: Decreased Breath Sounds, Other (Tachypnea, conversational dyspnea. Diminished breath sounds bilaterally) Cardiovascular: Regular Rate, Rhythm, No Murmur, Other (Will bruising over the chest wall and pacemaker insertion site) Gastrointestinal: Non Tender, Soft Back: Normal Inspection, No CVA Tenderness, No Vertebral Tenderness Extremity: Calf Tenderness, Other Neurologic/Psychiatric: Alert (Trace peripheral edema), Oriented x3, grain merchandiser II-XII Norm as Tested Focused Exam Sepsis Stage: Ruled Out Lactate Level 12/23/20 08:25: Lactic Acid Level 0.89 Lactic Acid Level Laboratory Tests Test 12/23/20 08:25 Lactic Acid Level 0.89 MMOL/L (0.50-2.00) Progress/Results/Core Measures Suspected Sepsis Recent Fever Within 48 Hours: No Infection Criteria Present: Suspected New Infection New/Unexplained Altered Menta: No Sepsis Screen: Possible Sepsis Risk SIRS Temperature: Pulse: 109 Respiratory Rate: 21 Laboratory Tests 12/23/20 08:25: White Blood Count 10.7 Blood Pressure 145 /56 Mean: 85 12/23/20 08:25: Lactic Acid Level 0.89 Laboratory Tests 12/23/20 08:25: Creatinine 0.90, Platelet Count 351, Total Bilirubin 0.4 Results/Orders Lab Results Laboratory Tests Test 12/23/20 08:25 12/23/20 08:33 12/23/20 10:10 Range/Units White Blood Count 10.7 4.3-11.0 10^3/uL Red Blood Count 2.98 L 4.35-5.85 10^6/uL Hemoglobin 8.7 L 11.5-16.0 G/DL Hematocrit 31 L 35-52 % Mean Corpuscular Volume 104 H 80-99 FL Mean Corpuscular Hemoglobin 29 25-34 PG Mean Corpuscular Hemoglobin Concent 28 L 32-36 G/DL Red Cell Distribution Width 16.8 H 10.0-14.5 % Platelet Count 351 130-400 10^3/uL Mean Platelet Volume 9.1 7.4-10.4 FL Immature Granulocyte % (Auto) 2 % Neutrophils (%) (Auto) 71 42-75 % Lymphocytes (%) (Auto) 11 L 12-44 % Monocytes (%) (Auto) 12 0-12 % Eosinophils (%) (Auto) 3 0-10 % Basophils (%) (Auto) 1 0-10 % Neutrophils # (Auto) 7.6 1.8-7.8 X 10^3 Lymphocytes # (Auto) 1.2 1.0-4.0 X 10^3 Monocytes # (Auto) 1.2 H 0.0-1.0 X 10^3 Eosinophils # (Auto) 0.3 0.0-0.3 10^3/uL Basophils # (Auto) 0.1 0.0-0.1 10^3/uL Immature Granulocyte # (Auto) 0.3 H 0.0-0.1 10^3/uL Sodium Level 145 135-145 MMOL/L Potassium Level 4.4 3.6-5.0 MMOL/L Chloride Level 107 98-107 MMOL/L Carbon Dioxide Level 33 H 21-32 MMOL/L Anion Gap 5 5-14 MMOL/L Blood Urea Nitrogen 23 H 7-18 MG/DL Creatinine 0.90 0.60-1.30 MG/DL Estimat Glomerular Filtration Rate 60 BUN/Creatinine Ratio 26 Glucose Level 86 70-105 MG/DL Lactic Acid Level 0.89 0.50-2.00 MMOL/L Calcium Level 9.0 8.5-10.1 MG/DL Corrected Calcium 9.5 8.5-10.1 MG/DL Total Bilirubin 0.4 0.1-1.0 MG/DL Aspartate Amino Transf (AST/SGOT) 15 5-34 U/L Alanine Aminotransferase (ALT/SGPT) 7 0-55 U/L Alkaline Phosphatase 85 40-136 U/L Troponin I < 0.30 <0.30 NG/ML Pro-B-Type Natriuretic Peptide 2936.0 H <75.0 PG/ML Total Protein 6.5 6.4-8.2 GM/DL Albumin 3.4 3.2-4.5 GM/DL Blood Gas Puncture Site RIGHT WRIST Blood Gas Patient Temperature 36.5 Arterial Blood pH 7.32 *L 7.37-7.43 Arterial Blood Partial Pressure CO2 76 *H 35-45 MMHG Arterial Blood Partial Pressure O2 147 H 79-93 MMHG Arterial Blood HCO3 39 H 23-27 MMOL/L Arterial Blood Total CO2 41.5 H 21.0-31.0 MMOL/L Arterial Blood Oxygen Saturation 99 94-100 % Arterial Blood Base Excess 10.2 H -2.5-2.5 MMOL/L Claudy Test NEG Blood Gas Ventilator Setting NO Blood Gas Inspired Oxygen 6L Urine Color YELLOW Urine Clarity CLEAR Urine pH 6.0 5-9 Urine Specific [place] 1.020 1.016-1.022 Urine Protein NEGATIVE NEGATIVE Urine Glucose (UA) NEGATIVE NEGATIVE Urine Ketones NEGATIVE NEGATIVE Urine Nitrite NEGATIVE NEGATIVE Urine Bilirubin NEGATIVE NEGATIVE Urine Urobilinogen 0.2 < = 1.0 MG/DL Urine Leukocyte Esterase TRACE H NEGATIVE Urine RBC (Auto) NEGATIVE NEGATIVE Urine RBC NONE /HPF Urine WBC 10-25 H /HPF Urine Squamous Epithelial Cells 2-5 /HPF Urine Crystals NONE /LPF Urine Bacteria TRACE /HPF Urine Casts PRESENT /LPF Urine Hyaline Casts 0-2 H /LPF Urine Mucus NEGATIVE /LPF Urine Culture Indicated YES My Orders Orders - UMANG PRESTON DO Cbc With Automated Diff (12/23/20 08:18) Comprehensive Metabolic Panel (12/23/20 08:18) Troponin I Fs (12/23/20 08:18) Probnp Fs (12/23/20 08:18) Chest 1 View Ap/Pa Only (12/23/20 08:18) Ekg-Prn For Chest Pain Or Rhyt (12/23/20 08:18) Lactic Acid Analyzer (12/23/20 08:18) Arterial Blood Gas (12/23/20 08:18) Blood Culture (12/23/20 08:18) Albuterol/Ipra Inhalation Soln (Duoneb I (12/23/20 08:30) Svn Small Volume Nebulizer (12/23/20 08:30) Ekg Tracing (12/23/20 08:30) Methylprednisolone Sod Succ (Solu-Medrol (12/23/20 09:30) Furosemide Injection (Lasix Injection) (12/23/20 09:30) Ua Culture If Indicated (12/23/20 10:11) Urine Culture (12/23/20 10:10) Medications Given in ED Current Medications Medications Dose Ordered Sig/Arsh Route Start Time Stop Time Status Last Admin Dose Admin Albuterol/ Ipratropium 6 ml ONCE ONCE INH 12/23/20 08:30 12/23/20 08:31 DC 12/23/20 08:33 6 ML Furosemide 40 mg ONCE ONCE IVP 12/23/20 09:30 12/23/20 09:31 DC 12/23/20 09:38 40 MG Methylprednisolone Sodium Succinate 125 mg ONCE ONCE IM 12/23/20 09:30 12/23/20 09:31 DC 12/23/20 09:38 125 MG Vital Signs/I&O 12/23/20 08:18 Temp 36.5 Pulse 109 Resp 21 B/P (MAP) 145/56 (85) Pulse Ox 100 O2 Delivery Non Rebreather O2 Flow Rate 12.00 Capillary Refill : Less Than 3 Seconds Blood Pressure Mean: 85 Departure Communication (Admissions) Chest x-ray: Pulmonary vascular congestion and cardiomegaly EKG: Ventricular paced rhythm Patient with tachypnea and hypoxia likely multifactorial with asthma and underlying congestive heart failure. DuoNeb, Lasix given with significant diuresis. Patient no longer tachypneic and requiring oxygen in addition to her baseline 2 L. Hospital admission offered but declined. She states she feels much better and requests to be discharged back to nursing facility. Patient is nonambulatory and gets around with a scooter. She is low risk of PE given her Eliquis. She agrees to follow-up with her PCP later this week for reevaluation. Return precautions reviewed. Patient verbalizes understanding agreement with discharge instructions prior to departure. Impression Primary Impression: Acute on chronic respiratory failure with hypoxia Additional Impressions: Congestive heart failure Asthma exacerbation Anemia Disposition: 01 HOME, SELF-CARE Condition: Stable Departure-Patient Inst. Decision time for Depature: 11:35 Referrals: BARBARA MARTINEZ MD (PCP/Family) Primary Care Physician Patient Instructions: Asthma, Adult ED, Heart Failure, Adult (DC) Add. Discharge Instructions: Please increase Lasix to 40 mg daily for the next 3 days and Xopenex breathing treatments every 4-6 hours for the next 2 days while awake. Take prednisone as directed and follow-up with your PCP in 3 to 4 days for reevaluation. Return to the ED if new or worsening symptoms All discharge instructions reviewed with patient and/or family. Voiced understanding. Scripts Prednisone (Prednisone) 20 Mg Tab 40 MG PO DAILY, #6 TAB 0 Refills Prov: UMANG PRESTON DO 12/23/20 UMANG PRESTON DO Dec 23, 2020 11:33
[2020-12-23] MEDS ORDERED: PRD20T PO (11:37)
[2020-12-23 12:54] VITALS: BP 154/53
== END 2020-12-23 12:57 | disposition home or self-care (01) ==
LOC: EDUNIT# 08:07 → ER FS 08:18
DX: J96.21 Acute and chronic respiratory failure with hypoxia (principal); I50.9 Heart failure, unspecified; J44.9 Chronic obstructive pulmonary disease, unspecified; D64.9 Anemia, unspecified; I48.91 Unspecified atrial fibrillation; Z88.8 Allergy status to other drugs, medicaments and biological substances; Z79.01 Long term (current) use of anticoagulants
CPT/HCPCS: 36415; 71045; 80053; 81000; 82805; 83605; 83880; 84484; 85025; 87040; 87088; 93005

== ENCOUNTER 2021-01-08 10:46 | Emergency (ER) | payer MEDICARE ==
[~2021-01-08] VITALS: Ht 157.5 cm; Wt 72.6 kg
[~2021-01-08 10:46] MED LIST changes: +PRD20T PO
[2021-01-08 11:26] LABS: HEMATOCRIT 35 % (35-52); MEAN CORPUSCULAR HEMOGLOBIN 29 PG (25-34); MEAN CORPUSCULAR HGB CONC 29 G/DL (32-36); MEAN CORPUSCULAR VOLUME 100 FL (80-99); MEAN PLATELET VOLUME 9.1 FL (7.4-10.4); PLATELET COUNT 272 10^3/uL (130-400); WHITE BLOOD COUNT 12.9 10^3/uL (4.3-11.0)
[2021-01-08 11:27] LABS: BASOPHILS % (AUTO) 0 % (0-10); EOSINOPHILS # (AUTO) 0.3 10^3/uL (0.0-0.3); EOSINOPHILS % (AUTO) 2 % (0-10); LYMPHOCYTES # (AUTO) 1.3 X 10^3 (1.0-4.0); LYMPHOCYTES % (AUTO) 10 % (12-44); MONOCYTES # (AUTO) 1.1 X 10^3 (0.0-1.0); MONOCYTES % (AUTO) 8 % (0-12); NEUTROPHILS % (AUTO) 78 % (42-75)
[2021-01-08 11:36] LABS: BACTERIA,URINE NEGATIVE /HPF; BILIRUBIN,URINE NEGATIVE (NEGATIVE); CLARITY,URINE CLEAR; COLOR,URINE YELLOW; GLUCOSE, URINE (UA) NEGATIVE (NEGATIVE); KETONES,URINE TRACE (NEGATIVE); LEUKOCYTE ESTERASE ,URINE NEGATIVE (NEGATIVE); NITRITE,URINE NEGATIVE (NEGATIVE); PH,URINE 8.5 (5-9); PROTEIN,URINE NEGATIVE (NEGATIVE)
--- NOTE | 2021-01-08 11:43 | Diagnostic Imaging Report ---
INDICATION: Difficulty breathing, difficulty speaking. COMPARISON: 12/23/2020. FINDINGS: There is some chronic prominence of the interstitial lung markings and old rib deformities which are stable. The small left effusion has decreased. The cardiomegaly and venous congestion appear unchanged. No adverse development. IMPRESSION: Redemonstration of upper limits heart size and venous distention. Decreased small left effusion. Additional chronic findings superimposed are stable. No adverse development. Dictated by: Dictated on workstation # [id number]
--- NOTE | 2021-01-08 11:44 | Diagnostic Imaging Report ---
PROCEDURE: CT head without contrast. TECHNIQUE: Multiple contiguous axial images were obtained through the brain without the use of intravenous contrast. Auto Exposure Controls were utilized during the CT exam to meet ALARA standards for radiation dose reduction. INDICATION: Difficulty speaking this morning, altered mental status. CORRELATION STUDY: 12/12/2020. FINDINGS: Ventricles and sulci are age appropriate. Brain parenchyma is unchanged. No midline shift or mass effect. No edema. No intracranial hemorrhage. Intracranial vascular calcification without hyperdense intracranial vascular sign. Basilar cisterns are maintained. The bony calvarium is intact. Paranasal sinuses and mastoid air cells with some chronic wall thickening with prior surgical changes. Prior lens replacement. IMPRESSION: 1. Stable noncontrast CT imaging of the head demonstrates no acute intracranial abnormality. Dictated by: Dictated on workstation # [id number]
[2021-01-08 11:54] LABS: SODIUM 142 MMOL/L (135-145)
[2021-01-08 11:55] LABS: ALANINE AMINOTRANSFERASE 10 U/L (0-55); ALKALINE PHOSPHATASE 71 U/L (40-136); BILIRUBIN,TOTAL 0.6 MG/DL (0.1-1.0); BUN/CREATININE RATIO 18; CALCIUM 9.2 MG/DL (8.5-10.1); CARBON DIOXIDE 31 MMOL/L (21-32); CHLORIDE 105 MMOL/L (98-107); CREATININE SERUM 0.93 MG/DL (0.60-1.30); GFR ESTIMATED 58; GLUCOSE 81 MG/DL (70-105)
[2021-01-08 11:56] LABS: ALBUMIN 3.6 GM/DL (3.2-4.5); TOTAL PROTEIN 6.1 GM/DL (6.4-8.2)
[2021-01-08] MEDS ORDERED: FUROSEMIDE 40 MG/4 ML INJ (LASIX) IVP ONE ×2 (12:45→13:45)
--- NOTE | 2021-01-08 12:53 | ED General ---
General Chief Complaint: Altered Mental Status Nursing Triage Note: Patient and [facility] staff report patient went to bed feeling normal at 11:30 pm last night, patient and staff report patient was having difficulty speaking and finding words at 0830 this morning when she woke. Patient states she is no longer having trouble speaking on arrival to the ED. Nursing Sepsis Screen: No Definite Risk Source of Information: Patient Exam Limitations: No Limitations History of Present Illness Date Seen by Provider: January 08, 2021 Time Seen by Provider: 10:47 Initial Comments Patient is a 80-year-old female retirement patient with history of congestive heart failure and chronic respiratory failure who presents resents with difficulty word finding and speaking this morning. Patient denies headache blurred vision, neck pain, tinnitus, loss of balance, extremity weakness or loss of sensation. She reports tingling in both feet. She denies fever cough, nausea, vomiting, urinary frequency urgency or dysuria. No chest pain palpitations, shortness of breath. No abdominal pain. No skin rash or bedsores. No other acute symptoms or complaints. Symptoms fully resolved prior to ED arrival. Accu-Chek was 79 per EMS. Last known normal was 2330 yesterday. Timing/Duration: 12 Hours Severity: Mild Modifying Factors: improves with Other Associated Systoms: Other Allergies and Home Medications Allergies Coded Allergies: aspirin (Verified Allergy, Unknown, 11/24/18) albuterol (Verified Adverse Reaction, Unknown, afib rvr, 11/24/18) Uncoded Allergies: PLASTIC TAPE (Adverse Reaction, Unknown, 11/24/18) Home Medications Acetaminophen 650 Mg Tablet.er, 1,300 MG PO BID, (Reported) Budesonide 0.5 Mg/2 Ml Ampul.neb, 0.5 MG IH BID, (Reported) Calcium Carbonate/Vitamin D3 1 Each Tab.chew, 2 EACH PO DAILY, (Reported) Diltiazem HCl 240 Mg Cap.er.24h, 240 MG PO DAILY, (Reported) Ferrous Sulfate 325 Mg Tablet, 325 MG PO DAILY, (Reported) Fish Oil/Borage/Flax/Om3,6,9#1 1,200 Mg Capsule, 1,200 MG PO DAILY, (Reported) Furosemide 20 Mg Tablet, 20 MG PO DAILY, (Reported) Furosemide 20 Mg Tablet, 20 MG PO DAILY, (Reported) Gabapentin 300 Mg Capsule, 300 MG PO BID, (Reported) Levalbuterol HCl 1.25 Mg/3 Ml Vial.neb, 1.25 MG INH BID, (Reported) Levofloxacin 750 Mg Tablet, 750 MG PO DAILY Prescribed by: BIGG RUDOLPH on 11/01/20 1148 Levothyroxine Sodium 112 Mcg Capsule, 112 MCG PO DAILY, (Reported) Montelukast Sodium 10 Mg Tablet, 10 MG PO DAILY, (Reported) Pantoprazole Sodium 40 Mg Tablet.dr, 40 MG PO DAILY, (Reported) Potassium Chloride 20 Meq Tab.er.prt, 20 MEQ PO BID, (Reported) Prednisone 20 Mg Tab, 40 MG PO DAILY Prescribed by: UMANG PRESTON on 12/23/20 1137 Rivaroxaban 20 Mg Tablet, 20 MG PO DAILY, (Reported) Tiotropium [place] 1 Inh Aerp, 2 INH IH DAILY, (Reported) Patient Home Medication List Home Medication List Reviewed: Yes Review of Systems Review of Systems Constitutional: see HPI EENTM: see HPI Respiratory: see HPI Cardiovascular: see HPI Gastrointestinal: see HPI Genitourinary: see HPI Musculoskeletal: see HPI Skin: see HPI Psychiatric/Neurological: See HPI Immunological/Allergic: see HPI All Other Systems Reviewed Negative Unless Noted: Yes Past Lpflqux-Rhdqcn-Ehvigz Hx Past Med/Social Hx: Reviewed Nursing Past Med/Soc Hx Patient Social History Alcohol Use: Denies Use Number of Drinks Today: Alcohol Beverage of Choice: Wine Smoking Status: Never a Smoker 2nd Hand Smoke Exposure: No Recent Infectious Disease Expo: No Recent Hopitalizations: No Immunizations Up To Date Date of Influenza Vaccine: Jun 07, 2021 Seasonal Allergies Seasonal Allergies: No Past Medical History Surgeries: Yes (Colonoscopy) Lumpectomy, Orthopedic, Tonsillectomy Respiratory: Yes (Chronic O2 dependent, CPAP) Asthma, Sleep Apnea, COPD Cardiac: Yes (CHF (diastolic heart failure), cardiac dysrhythmias) Atrial Fibrillation Neurological: No Genitourinary: No Gastrointestinal: No Musculoskeletal: Yes Arthritis Endocrine: No HEENT: No Cancer: No Psychosocial: No Integumentary: No Blood Disorders: No Physical Exam Vital Signs Vital Signs - First Documented 01/08/21 10:52 Temp 36.8 Pulse 95 Resp 16 B/P (MAP) 176/77 (110) Pulse Ox 98 O2 Delivery Nasal Cannula O2 Flow Rate 2.00 Capillary Refill : Less Than 3 Seconds Height, Weight, BMI Height: 5'3.00" Weight: 224lbs. oz. 101.872974gp; 29.00 BMI Method:Stated General Appearance: No Apparent Distress, WD/WN Eyes: Bilateral Eye Normal Inspection, Bilateral Eye PERRL, Bilateral Eye EOMI HEENT: PERRL/EOMI, Normal ENT Inspection, Pharynx Normal Neck: Non Tender, Supple Respiratory: Chest Non Tender, Lungs Clear Cardiovascular: Regular Rate, Rhythm, No Edema, No Gallop Gastrointestinal: Non Tender, Soft Back: Normal Inspection, No CVA Tenderness Extremity: Normal Capillary Refill Neurologic/Psychiatric: Oriented x3, No Motor/Sensory Deficits, Normal Mood/Affect, counselor aid II-XII Norm as Tested Skin: Normal Color, Other (Skin bruising) Progress/Results/Core Measures Suspected Sepsis Recent Fever Within 48 Hours: No Infection Criteria Present: None New/Unexplained Altered Menta: Yes Sepsis Screen: No Definite Risk SIRS Temperature: Pulse: 95 Respiratory Rate: 16 Laboratory Tests 01/08/21 11:01: White Blood Count 12.9H Blood Pressure 176 /77 Mean: 110 Laboratory Tests 01/08/21 11:01: Creatinine 0.93, Platelet Count 272, Total Bilirubin 0.6 Results/Orders Lab Results Laboratory Tests Test 01/08/21 11:01 01/08/21 11:10 Range/Units White Blood Count 12.9 H 4.3-11.0 10^3/uL Red Blood Count 3.49 L 4.35-5.85 10^6/uL Hemoglobin 10.0 L 11.5-16.0 G/DL Hematocrit 35 35-52 % Mean Corpuscular Volume 100 H 80-99 FL Mean Corpuscular Hemoglobin 29 25-34 PG Mean Corpuscular Hemoglobin Concent 29 L 32-36 G/DL Red Cell Distribution Width 17.7 H 10.0-14.5 % Platelet Count 272 130-400 10^3/uL Mean Platelet Volume 9.1 7.4-10.4 FL Immature Granulocyte % (Auto) 2 % Neutrophils (%) (Auto) 78 H 42-75 % Lymphocytes (%) (Auto) 10 L 12-44 % Monocytes (%) (Auto) 8 0-12 % Eosinophils (%) (Auto) 2 0-10 % Basophils (%) (Auto) 0 0-10 % Neutrophils # (Auto) 10.0 H 1.8-7.8 X 10^3 Lymphocytes # (Auto) 1.3 1.0-4.0 X 10^3 Monocytes # (Auto) 1.1 H 0.0-1.0 X 10^3 Eosinophils # (Auto) 0.3 0.0-0.3 10^3/uL Basophils # (Auto) 0.0 0.0-0.1 10^3/uL Immature Granulocyte # (Auto) 0.2 H 0.0-0.1 10^3/uL Sodium Level 142 135-145 MMOL/L Potassium Level 4.0 3.6-5.0 MMOL/L Chloride Level 105 98-107 MMOL/L Carbon Dioxide Level 31 21-32 MMOL/L Anion Gap 6 5-14 MMOL/L Blood Urea Nitrogen 17 7-18 MG/DL Creatinine 0.93 0.60-1.30 MG/DL Estimat Glomerular Filtration Rate 58 BUN/Creatinine Ratio 18 Glucose Level 81 70-105 MG/DL Calcium Level 9.2 8.5-10.1 MG/DL Corrected Calcium 9.5 8.5-10.1 MG/DL Total Bilirubin 0.6 0.1-1.0 MG/DL Aspartate Amino Transf (AST/SGOT) 16 5-34 U/L Alanine Aminotransferase (ALT/SGPT) 10 0-55 U/L Alkaline Phosphatase 71 40-136 U/L Troponin I < 0.30 <0.30 NG/ML Pro-B-Type Natriuretic Peptide 3244.0 H <75.0 PG/ML Total Protein 6.1 L 6.4-8.2 GM/DL Albumin 3.6 3.2-4.5 GM/DL Urine Color YELLOW Urine Clarity CLEAR Urine pH 8.5 5-9 Urine Specific [place] 1.020 1.016-1.022 Urine Protein NEGATIVE NEGATIVE Urine Glucose (UA) NEGATIVE NEGATIVE Urine Ketones TRACE H NEGATIVE Urine Nitrite NEGATIVE NEGATIVE Urine Bilirubin NEGATIVE NEGATIVE Urine Urobilinogen 0.2 < = 1.0 MG/DL Urine Leukocyte Esterase NEGATIVE NEGATIVE Urine RBC (Auto) NEGATIVE NEGATIVE Urine RBC 2-5 H /HPF Urine WBC 5-10 H /HPF Urine Squamous Epithelial Cells 2-5 /HPF Urine Crystals NONE /LPF Urine Bacteria NEGATIVE /HPF Urine Casts NONE /LPF Urine Mucus SMALL H /LPF Urine Culture Indicated NO My Orders Carolyne - UMANG PRESTON DO Cbc With Automated Diff (01/08/21 10:54) Comprehensive Metabolic Panel (01/08/21 10:54) Troponin I Fs (01/08/21 10:54) Probnp Fs (01/08/21 10:54) Ua Culture If Indicated (01/08/21 10:54) Chest 1 View Ap/Pa Only (01/08/21 10:54) Ct Head Wo (01/08/21 10:54) Ekg Tracing (01/08/21 10:57) Furosemide Injection (Lasix Injection) (01/08/21 12:45) Vital Signs/I&O 01/08/21 10:52 Temp 36.8 Pulse 95 Resp 16 B/P (MAP) 176/77 (110) Pulse Ox 98 O2 Delivery Nasal Cannula O2 Flow Rate 2.00 Capillary Refill : Less Than 3 Seconds Blood Pressure Mean: 110 Departure Communication (Admissions) EKG: Sinus rhythm, no acute ST-T wave changes. QTc QRS are normal. CT head: No acute intracranial abnormality per radiology report. Chest x-ray: Pulmonary vascular congestion. Patient with return to baseline mental status after ED arrival. Physical exam is unremarkable for acute conditions other than the patient does have some faint rales in bases and findings of CHF on chest x-ray. Suspect patient may have become hypoxic last night contributing to mild encephalopathy which is since resolved. Single dose of Lasix given. Given patient's significant improvement lack of focal symptoms and that she is currently on Xarelto, I feel there is little to to benefit to hospitalizing the patient at this time. Patient prefers to return to her home at the retirement facility. Will return to retirement facility with instructions to increase Lasix over the next 2 days and follow-up with her PCP in the next 1 to 2 weeks. Return precautions reviewed. Patient verbalizes understanding agreement discharge instructions prior to departure. Return precautions reviewed. Patient verbalizes understanding agreement discharge instructions prior to departure. Impression Primary Impression: Encephalopathy Additional Impression: Congestive heart failure Disposition: 01 HOME, SELF-CARE Condition: Stable Departure-Patient Inst. Decision time for Depature: 12:54 Referrals: BARBARA MARTINEZ MD (PCP/Family) Primary Care Physician Patient Instructions: Heart Failure and Atrial Fibrillation Add. Discharge Instructions: You were evaluated in the emergency department for difficulty speaking. Exact cause of your symptoms has not been determined. It was found that you are in heart failure. Please increase Lasix to 20 mg twice daily for the next 2 days continue all other home meds. Record daily weights and follow-up with your PCP in 1 to 2 weeks for reevaluation. Return to the ED if new or concerning symptoms. All discharge instructions reviewed with patient and/or family. Voiced understanding. UMANG PRESTON DO January 08, 2021 12:53
[2021-01-08 14:24] VITALS: BP 156/81
== END 2021-01-08 14:39 | disposition home or self-care (01) ==
LOC: ER FS 10:46 → EDUNIT# 10:46 → ER FS 14:39
DX: G93.40 Encephalopathy, unspecified (principal); I50.9 Heart failure, unspecified; J44.9 Chronic obstructive pulmonary disease, unspecified; I48.91 Unspecified atrial fibrillation; Z88.8 Allergy status to other drugs, medicaments and biological substances; Z79.01 Long term (current) use of anticoagulants; Z79.52 Long term (current) use of systemic steroids
CPT/HCPCS: 36415; 51702; 70450; 71045; 80053; 81000; 83880; 84484; 85025; 93005; 96374

== ENCOUNTER → 2021-03-20 | Outpatient (CLI) | payer MEDICARE ==
--- NOTE | 2021-03-20 14:46 | Diagnostic Imaging Report ---
EXAMINATION: Chest 2 view HISTORY: Cough COMPARISON: 11/12/2019 FINDINGS: There is a small left pleural effusion. No pneumothorax. No edema or pneumonia. There are old right-sided rib fractures. Left subclavian pacemaker is present. Process normal. There are shoulder degeneration. IMPRESSION: 1. Small left pleural effusion. Dictated by: Dictated on workstation # [id number]
== END ==
LOC: RAD FS 14:01
PROVIDERS: ATTEND Pediatrics
DX: J90 Pleural effusion, not elsewhere classified (principal)
CPT/HCPCS: 71046

== ENCOUNTER → 2021-09-16 | Outpatient (CLI) | payer MEDICARE ==
[~2021-09-16] MED LIST changes: -LEVO500T80 PO; +LEVO500T81 PO; +POTA-179 PO; -POTA20TA15 PO
[2021-09-16 08:14] LABS: BILIRUBIN,URINE NEGATIVE (NEGATIVE); CLARITY,URINE CLOUDY; COLOR,URINE YELLOW; GLUCOSE, URINE (UA) NEGATIVE (NEGATIVE); KETONES,URINE NEGATIVE (NEGATIVE); LEUKOCYTE ESTERASE ,URINE NEGATIVE (NEGATIVE); NITRITE,URINE NEGATIVE (NEGATIVE); PH,URINE 6.5 (5-9); PROTEIN,URINE NEGATIVE (NEGATIVE)
[2021-09-16 08:33] LABS: RBC,URINE 0-2 /HPF
[2021-09-16 08:34] LABS: BACTERIA,URINE LARGE /HPF
== END ==
LOC: PVFS 07:15
PROVIDERS: ATTEND Pediatrics
DX: R39.15 Urgency of urination (principal)
CPT/HCPCS: 81000; 87077; 87088

== ENCOUNTER 2022-02-07 14:09 | Emergency (ER) | payer MEDICARE ==
[~2022-02-07] VITALS: Ht 157.5 cm; Wt 73.9 kg
[~2022-02-07 14:09] MED LIST changes: +ACET-2717 PO; -ACET650T41 PO
--- NOTE | 2022-02-07 14:16 | ED General ---
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 The nosebleeds have been on and off throughout the morning and staff was concerned because it did not stop completely. Patient was brought in by EMS. In the ER bleeding appeared to be controlled. Denies facial or head injury, falls, blunt injury, dizziness, headache. Patient does not typically get nosebleeds. Allergies and Home Medications Allergies Coded Allergies: aspirin (Verified Allergy, Unknown, 11/24/18) albuterol (Verified Adverse Reaction, Unknown, afib rvr, 11/24/18) Uncoded Allergies: PLASTIC TAPE (Adverse Reaction, Unknown, 11/24/18) Patient Home Medication List Home Medication List Reviewed: Yes Acetaminophen (Acetaminophen 8 Hour) 650 Mg Tablet.er, 1,300 MG PO BID, (Reported) Entered as Reported by: LIZ SILVA on 11/01/201123 Budesonide (Budesonide) 0.5 Mg/2 Ml Ampul.neb, 0.5 MG IH BID, (Reported) Entered as Reported by: LIZ SILVA on 11/01/20 112 Calcium Carbonate/Vitamin D3 (Caltrate 600 + D Soft Chew Tab) 1 Each Tab.chew, 2 EACH PO DAILY, (Reported) Entered as Reported by: LIZ SILVA on 11/01/20 112 Diltiazem HCl (Cardizem Cd) 240 Mg Cap.er.24h, 240 MG PO DAILY, (Reported) Entered as Reported by: LIZ SILVA on 11/01/201123 Ferrous Sulfate (Ferrous Sulfate) 325 Mg Tablet, 325 MG PO DAILY, (Reported) Entered as Reported by: LIZ SILVA on 11/01/201123 Fish Oil/Borage/Flax/Om3,6,9#1 ([place] 3-6-9 1,200 mg Softgel) 1,200 Mg Capsule, 1,200 MG PO DAILY, (Reported) Entered as Reported by: LIZ SILVA on 11/01/20 112 Furosemide (Lasix) 20 Mg Tablet, 20 MG PO DAILY, (Reported) Entered as Reported by: LIZ SILVA on 11/01/20 112 Furosemide (Lasix) 20 Mg Tablet, 20 MG PO DAILY, (Reported) Entered as Reported by: LIZ SILVA on 11/01/20 112 Gabapentin (Neurontin) 300 Mg Capsule, 300 MG PO BID, (Reported) Entered as Reported by: LIZ SILVA on 11/01/20 112 Levalbuterol HCl (Xopenex) 1.25 Mg/3 Ml Vial.neb, 1.25 MG INH BID, (Reported) Entered as Reported by: LIZ SILVA on 11/01/20 112 Levofloxacin (Levofloxacin) 750 Mg Tablet, 750 MG PO DAILY Prescribed by: BIGG RUDOLPH on 11/01/20 114 Levothyroxine Sodium (Levothyroxine) 112 Mcg Capsule, 112 MCG PO DAILY, (Reported) Entered as Reported by: LIZ SILVA on 11/01/201123 Montelukast Sodium (Singulair) 10 Mg Tablet, 10 MG PO DAILY, (Reported) Entered as Reported by: LIZ SILVA on 11/01/201123 Pantoprazole Sodium (Protonix) 40 Mg Tablet.dr, 40 MG PO DAILY, (Reported) Entered as Reported by: LIZ SILVA on 11/01/201123 Potassium Chloride (Potassium Chloride) 20 Meq Tab.er.prt, 20 MEQ PO BID, (Repor stuart) Entered as Reported by: LIZ SILVA on 11/01/20 112 Prednisone (Prednisone) 20 Mg Tab, 40 MG PO DAILY Prescribed by: UMANG PRESTON on 12/23/20 1137 Rivaroxaban (Xarelto) 20 Mg Tablet, 20 MG PO DAILY, (Reported) Entered as Reported by: LIZ SILVA on 11/01/20 112 Tiotropium [place] (Spiriva) 1 Inh Aerp, 2 INH IH DAILY, (Reported) Entered as Reported by: LIZ SILVA on 11/01/20 112 Review of Systems Review of Systems Constitutional: no symptoms reported EENTM: epistaxis Respiratory: no symptoms reported Cardiovascular: no symptoms reported Gastrointestinal: no symptoms reported Genitourinary: no symptoms reported Musculoskeletal: no symptoms reported Skin: no symptoms reported Psychiatric/Neurological: No Symptoms Reported Hematologic/Lymphatic: No Symptoms Reported Immunological/Allergic: no symptoms reported Past Ceqhspy-Ekuvkw-Gwwdvf Hx Seasonal Allergies Seasonal Allergies: No Past Medical History Surgeries: Yes (Colonoscopy) Lumpectomy, Orthopedic, Tonsillectomy Respiratory: Yes (Chronic O2 dependent, CPAP) Asthma, Sleep Apnea, COPD Cardiac: Yes (CHF (diastolic heart failure), cardiac dysrhythmias) Atrial Fibrillation Neurological: No Genitourinary: No Gastrointestinal: No Musculoskeletal: Yes Arthritis Endocrine: No HEENT: No Cancer: No Psychosocial: No Integumentary: No Blood Disorders: No Physical Exam Vital Signs Vital Signs - First Documented 02/07/22 14:09 Temp 36.4 Pulse 83 Resp 18 B/P (MAP) 172/68 (102) Pulse Ox 95 O2 Delivery Room Air Capillary Refill : Height, Weight, BMI Height: 5'3.00" Weight: 224lbs. oz. 101.868428dg; 29.00 BMI Method:Stated General Appearance: No Apparent Distress HEENT: PERRL/EOMI, Pharynx Normal, Other (epistaxis in right nostril, but bleeding has stopped, without any posterior pharyngel traking of blood. ) Respiratory: Chest Non Tender, Lungs Clear Cardiovascular: Regular Rate, Rhythm Gastrointestinal: Non Tender, Soft Neurologic/Psychiatric: Alert, Oriented x3, No Motor/Sensory Deficits, Normal Mood/Affect Skin: Normal Color Progress/Results/Core Measures Suspected Sepsis SIRS Temperature: Pulse: Respiratory Rate: Laboratory Tests 02/07/22 15:00: White Blood Count 7.1 Blood Pressure / Mean: Laboratory Tests 02/07/22 15:00: Creatinine 0.84, INR Comment 1.7H, Platelet Count 199, Total Bilirubin 0.2 Results/Orders Lab Results Laboratory Tests Test 02/07/22 15:00 02/07/22 15:24 Range/Units White Blood Count 7.1 4.3-11.0 10^3/uL Red Blood Count 3.77 L 3.80-5.11 10^6/uL Hemoglobin 10.8 L 11.5-16.0 g/dL Hematocrit 36 35-52 % Mean Corpuscular Volume 96 80-99 fL Mean Corpuscular Hemoglobin 29 25-34 pg Mean Corpuscular Hemoglobin Concent 30 L 32-36 g/dL Red Cell Distribution Width 15.2 H 10.0-14.5 % Platelet Count 199 130-400 10^3/uL Mean Platelet Volume 9.2 9.0-12.2 fL Immature Granulocyte % (Auto) 1 % Neutrophils (%) (Auto) 71 42-75 % Lymphocytes (%) (Auto) 12 12-44 % Monocytes (%) (Auto) 10 0-12 % Eosinophils (%) (Auto) 7 0-10 % Basophils (%) (Auto) 0 0-10 % Neutrophils # (Auto) 5.0 1.8-7.8 10^3/uL Lymphocytes # (Auto) 0.9 L 1.0-4.0 10^3/uL Monocytes # (Auto) 0.7 0.0-1.0 10^3/uL Eosinophils # (Auto) 0.5 H 0.0-0.3 10^3/uL Basophils # (Auto) 0.0 0.0-0.1 10^3/uL Immature Granulocyte # (Auto) 0.0 0.0-0.1 10^3/uL Prothrombin Time 20.3 H 12.2-14.7 SEC INR Comment 1.7 H 0.8-1.4 Activated Partial Thromboplast Time 42 H 24-35 SEC Sodium Level 145 135-145 MMOL/L Potassium Level 4.6 3.6-5.0 MMOL/L Chloride Level 103 98-107 MMOL/L Carbon Dioxide Level 34 H 21-32 MMOL/L Anion Gap 8 5-14 MMOL/L Blood Urea Nitrogen 22 H 7-18 MG/DL Creatinine 0.84 0.60-1.30 MG/DL Estimat Glomerular Filtration Rate 70 BUN/Creatinine Ratio 26 Glucose Level 110 H 70-105 MG/DL Calcium Level 9.3 8.5-10.1 MG/DL Corrected Calcium 9.6 8.5-10.1 MG/DL Total Bilirubin 0.2 0.1-1.0 MG/DL Aspartate Amino Transf (AST/SGOT) 20 5-34 U/L Alanine Aminotransferase (ALT/SGPT) 15 0-55 U/L Alkaline Phosphatase 69 40-136 U/L Total Protein 6.4 6.4-8.2 GM/DL Albumin 3.6 3.2-4.5 GM/DL Urine Color YELLOW Urine Clarity CLEAR Urine pH 8.0 5-9 Urine Specific [place] 1.020 1.016-1.022 Urine Protein NEGATIVE NEGATIVE Urine Glucose (UA) NEGATIVE NEGATIVE Urine Ketones NEGATIVE NEGATIVE Urine Nitrite NEGATIVE NEGATIVE Urine Bilirubin NEGATIVE NEGATIVE Urine Urobilinogen 0.2 < = 1.0 MG/DL Urine Leukocyte Esterase NEGATIVE NEGATIVE Urine RBC (Auto) NEGATIVE NEGATIVE Urine RBC NONE /HPF Urine WBC 10-25 H /HPF Urine Squamous Epithelial Cells NONE /HPF Urine Crystals NONE /LPF Urine Bacteria LARGE H /HPF Urine Casts PRESENT /LPF Urine Hyaline Casts 5-10 H /LPF Urine Mucus SMALL H /LPF Urine Other /HPF Urine Culture Indicated YES My Orders Orders - IRAIDA COOMBS MD Cbc With Automated Diff (02/07/22 14:22) Comprehensive Metabolic Panel (02/07/22 14:22) Protime With Inr (02/07/22 14:22) Partial Thromboplastin Time (02/07/22 14:22) Ua Culture If Indicated (02/07/22 14:22) Urine Culture (02/07/22 15:24) Vital Signs/I&O 02/07/22 14:09 Temp 36.4 Pulse 83 Resp 18 B/P (MAP) 172/68 (102) Pulse Ox 95 O2 Delivery Room Air Capillary Refill : Progress Note : Progress Note 1. RIGHT EPISTAXIS" - Controlled, rhino rocket soaked in lido with epi and placed in right nostril. Pt's mouth washed out with water. No more bleeding. 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 In the meantime advised to stop Xarelto over the weekend. - Do not remove rhino rocket for 24 hours -Advised not to blow her nose -After 24 to 48 hours can use gentle nasal saline mist, advised humidifier, and advised Vaseline in the nostril after 48 hours to keep nasal mucosa moist. -The patient was seen in the ED, and treated appropriately to presentation at a specific point in time. Patient is informed that there is a possibility that disease and illness can evolve and change in acuity rapidly or slowly after patient is discharged from the ER. Precautionary advice given to the patient for immediate return to ER if symptoms worsen or do not resolve, and to seek emergency care sooner rather than later. Pt also advised on the importance of PCP follow up and compliance with management and follow up plan with PCP and/or specialist, as this is part of the management plan. Pt verbally expressed understanding. Departure Impression Primary Impression: Epistaxis Disposition: HOME, SELF-CARE Condition: Improved Departure-Patient Inst. Referrals: BARBARA MARTINEZ MD (PCP) Primary Care Physician Patient Instructions: Nosebleeds (DC), Rinsing Out Your Nose With Salt Water, Humidifiers Add. 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 In the meantime advised to stop Xarelto over the weekend. - Do not remove rhino rocket for 24 hours -Advised not to blow her nose -After 24 to 48 hours can use gentle nasal saline mist, advised humidifier, and advised Vaseline in the nostril after 48 hours to keep nasal mucosa moist. IRAIDA COOMBS MD Feb 07, 2022 14:16
[2022-02-07 15:07] LABS: BASOPHILS % (AUTO) 0 % (0-10); EOSINOPHILS # (AUTO) 0.5 10^3/uL (0.0-0.3); EOSINOPHILS % (AUTO) 7 % (0-10); HEMATOCRIT 36 % (35-52); HEMOGLOBIN 10.8 g/dL (11.5-16.0); LYMPHOCYTES # (AUTO) 0.9 10^3/uL (1.0-4.0); LYMPHOCYTES % (AUTO) 12 % (12-44); MEAN CORPUSCULAR HEMOGLOBIN 29 pg (25-34); MEAN CORPUSCULAR HGB CONC 30 g/dL (32-36); MEAN CORPUSCULAR VOLUME 96 fL (80-99); MEAN PLATELET VOLUME 9.2 fL (9.0-12.2); MONOCYTES # (AUTO) 0.7 10^3/uL (0.0-1.0); MONOCYTES % (AUTO) 10 % (0-12); NEUTROPHILS % (AUTO) 71 % (42-75); PLATELET COUNT 199 10^3/uL (130-400); WHITE BLOOD COUNT 7.1 10^3/uL (4.3-11.0)
[2022-02-07 15:16] LABS: INR 1.7 (0.8-1.4); PROTHROMBIN TIME PATIENT 20.3 SEC (12.2-14.7)
[2022-02-07 15:23] LABS: POTASSIUM 4.6 MMOL/L (3.6-5.0)
[2022-02-07 15:24] LABS: ALBUMIN 3.6 GM/DL (3.2-4.5); BILIRUBIN,TOTAL 0.2 MG/DL (0.1-1.0); CALCIUM 9.3 MG/DL (8.5-10.1); CREATININE SERUM 0.84 MG/DL (0.60-1.30); TOTAL PROTEIN 6.4 GM/DL (6.4-8.2)
[2022-02-07 15:29] LABS: BILIRUBIN,URINE NEGATIVE (NEGATIVE); CLARITY,URINE CLEAR; COLOR,URINE YELLOW; GLUCOSE, URINE (UA) NEGATIVE (NEGATIVE); KETONES,URINE NEGATIVE (NEGATIVE); LEUKOCYTE ESTERASE ,URINE NEGATIVE (NEGATIVE); NITRITE,URINE NEGATIVE (NEGATIVE); PROTEIN,URINE NEGATIVE (NEGATIVE)
[2022-02-07 15:35] LABS: BACTERIA,URINE LARGE /HPF
[2022-02-07 16:55] VITALS: BP 164/88
== END 2022-02-07 16:55 | disposition home or self-care (01) ==
LOC: EDUNIT# 14:09 → ER FS 14:10
DX: R04.0 Epistaxis (principal); I48.91 Unspecified atrial fibrillation; G47.30 Sleep apnea, unspecified; J44.9 Chronic obstructive pulmonary disease, unspecified; Z99.81 Dependence on supplemental oxygen; Z99.89 Dependence on other enabling machines and devices; Z79.01 Long term (current) use of anticoagulants
CPT/HCPCS: 36415; 80053; 81000; 85025; 85610; 85730; 87088

== ENCOUNTER → 2022-03-28 | Outpatient (CLI) | payer MEDICARE ==
[2022-03-28 07:35] LABS: BILIRUBIN,URINE NEGATIVE (NEGATIVE); CLARITY,URINE CLEAR; COLOR,URINE YELLOW; GLUCOSE, URINE (UA) NEGATIVE (NEGATIVE); KETONES,URINE NEGATIVE (NEGATIVE); LEUKOCYTE ESTERASE ,URINE NEGATIVE (NEGATIVE); NITRITE,URINE NEGATIVE (NEGATIVE); PH,URINE 6.5 (5-9); PROTEIN,URINE NEGATIVE (NEGATIVE)
[2022-03-28 07:40] LABS: BACTERIA,URINE NEGATIVE /HPF; SQUAMOUS EPITHELIAL CELL,UR RARE /HPF; WBC,URINE 0-2 /HPF
== END ==
LOC: PVFS 07:18
PROVIDERS: ATTEND Pediatrics
DX: R35.0 Frequency of micturition (principal); R10.9 Unspecified abdominal pain
CPT/HCPCS: 81000

== ENCOUNTER 2022-04-07 11:19 | Emergency (ER) | payer MEDICARE ==
[~2022-04-07] VITALS: Ht 157 cm; Wt 75.8 kg
[2022-04-07 11:35] VITALS: BP 153/69
[2022-04-07 11:35] LABS: BASOPHILS % (AUTO) 0 % (0-10); EOSINOPHILS # (AUTO) 0.5 10^3/uL (0.0-0.3); EOSINOPHILS % (AUTO) 5 % (0-10); HEMATOCRIT 37 % (35-52); HEMOGLOBIN 11.4 g/dL (11.5-16.0); LYMPHOCYTES # (AUTO) 0.9 10^3/uL (1.0-4.0); LYMPHOCYTES % (AUTO) 8 % (12-44); MEAN CORPUSCULAR HEMOGLOBIN 30 pg (25-34); MEAN CORPUSCULAR HGB CONC 31 g/dL (32-36); MEAN CORPUSCULAR VOLUME 96 fL (80-99); MONOCYTES % (AUTO) 9 % (0-12); NEUTROPHILS # (AUTO) 8.1 10^3/uL (1.8-7.8); NEUTROPHILS % (AUTO) 77 % (42-75); PLATELET COUNT 216 10^3/uL (130-400); WHITE BLOOD COUNT 10.5 10^3/uL (4.3-11.0)
[2022-04-07 11:37] LABS: BILIRUBIN,URINE NEGATIVE (NEGATIVE); CLARITY,URINE SL CLOUDY; COLOR,URINE YELLOW; GLUCOSE, URINE (UA) NEGATIVE (NEGATIVE); KETONES,URINE NEGATIVE (NEGATIVE); LEUKOCYTE ESTERASE ,URINE NEGATIVE (NEGATIVE); NITRITE,URINE NEGATIVE (NEGATIVE); PROTEIN,URINE TRACE (NEGATIVE)
[2022-04-07 12:05] LABS: PROTHROMBIN TIME PATIENT 22.9 SEC (12.2-14.7)
--- NOTE | 2022-04-07 12:10 | Diagnostic Imaging Report ---
PROCEDURE: CT abdomen and pelvis without contrast. TECHNIQUE: Multiple contiguous axial images were obtained through the abdomen and pelvis without the use of intravenous contrast. Auto Exposure Controls were utilized during the CT exam to meet ALARA standards for radiation dose reduction. INDICATION: Febrile. COMPARISON: 11/01/2020 FINDINGS: Included portions of the lung bases show bibasilar scarring and atelectasis. Heart is also mildly enlarged. CT ABDOMEN: Midline ventral hernia is identified and contains portion of the transverse colon. Ostia measures 3.5 cm in diameter. There is no colonic wall thickening to suggest strangulation. Moderate amount of air and stool is noted scattered throughout the anterior descending, transverse, and descending colon. Normal appendix is identified. Small bowel loops are nondistended. The kidneys, adrenal glands, spleen, pancreas, and liver have an unremarkable noncontrast CT appearance. There is no loculated fluid collection, free fluid or free air within the abdomen. No abnormal mesenteric or retroperitoneal adenopathy is seen. Osseous structures show no acute abnormalities. CT PELVIS: Pelvis is partially obscured due to metallic beam hardening artifact from right hip prosthesis. Urinary bladder is unopacified and minimally distended. No calculi are seen within urinary bladder. There is no loculated fluid collection, free fluid or free air within the pelvis. No abnormal lymph nodes are seen. Osseous structures show no acute abnormalities. IMPRESSION: 1. Midline ventral hernia contains portion of the transverse colon. Moderate amount of air and stool is noted scattered throughout the ascending through to the descending colon may be on the basis of constipation, as opposed to obstruction. 2. Otherwise, no acute abnormalities are seen within the abdomen or pelvis. Dictated by: Dictated on workstation # [id number]
[2022-04-07 12:12] LABS: RBC,URINE RARE /HPF; WBC,URINE 0-2 /HPF
[2022-04-07 12:13] LABS: BACTERIA,URINE NEGATIVE /HPF; HYALINE CASTS, URINE RARE /LPF; SQUAMOUS EPITHELIAL CELL,UR 0-2 /HPF
[2022-04-07] MEDS ORDERED: NS IV 1000 ML 1,000 ML IV SCH (12:15)
[2022-04-07] MEDS ORDERED: RT-ALBUTEROL SULF 2.5 MG/3 ML PRE-MIX VIAL INH ONE (12:15)
[2022-04-07] MEDS ORDERED: SODIUM BICARB 8.4% 50 MEQ/50 ML (ABBOTT) SYR IV ONE (12:15)
[2022-04-07] MEDS ORDERED: inSUlin (REGULAR) HUMAN 1 UNIT/0.01 ML (CHARGE PER UNIT) IV ONE (12:15)
[2022-04-07] MEDS ORDERED: DEXTROSE 50% 50 ML (IMS) SYR IV ONE ×3 (12:15→15:00)
[2022-04-07 12:22] LABS: BAND NEUTROPHILS 1 %; LYMPHOCYTES % (MANUAL) 6 %; NEUTROPHILS % (MANUAL) 77 %
[2022-04-07 12:23] LABS: BASOPHILS % (MANUAL) 0 %; EOSINOPHILS % (MANUAL) 6 %; MONOCYTES % (MANUAL) 10 %
--- NOTE | 2022-04-07 12:25 | ED Back Pain ---
General Chief Complaint: Back Problems Stated Complaint: BACK PAIN Nursing Triage Note: Patient has been brought to ER by EMS with cc of mid left side back pain for the last week. Patient reports the pain sometimes radiates upward into her left ribs. She denies any recent known fall or injury to her back. She has been taking tylenol for the pain and this morning she took a hydrocodone for her pain. Source of Information: Patient, EMS Exam Limitations: No Limitations History of Present Illness Date Seen by Provider: Apr 07, 2022 Time Seen by Provider: 11:18 Initial Comments 81-year-old female patient with history of asthma on 3 L of home oxygen, atrial fibrillation on Xarelto, arthritis, hypertension, walking problem with using wheelchair most the time, resident of assisted living home brought in by EMS because of back pain. Patient complaining of gradual onset of intermittent episodes of low back pain for the last 1 week that getting worse for the last 2 to 3 days. Patient states the pain is mainly in left lower side without radiation or new neurodeficit. Patient denies fever and chills, nausea and vomiting, anorexia, diarrhea and constipation, urinary symptom or decrease of urine output, new fall or injury. Patient states she took leftover of hydrocodone this morning and her pain dropped to 3/10. Patient states she had history of low back pain but this time her pain was worse than her usual. Allergies and Home Medications Allergies Coded Allergies: aspirin (Verified Allergy, Unknown, 11/24/18) albuterol (Verified Adverse Reaction, Unknown, afib rvr, 11/24/18) Uncoded Allergies: PLASTIC TAPE (Adverse Reaction, Unknown, 11/24/18) Patient Home Medication List Home Medication List Reviewed: Yes Acetaminophen (Acetaminophen 8 Hour) 650 Mg Tablet.er, 1,300 MG PO BID, (Reported) Entered as Reported by: LIZ SILVA on 11/01/20 112 Budesonide (Budesonide) 0.5 Mg/2 Ml Ampul.neb, 0.5 MG IH BID, (Reported) Entered as Reported by: LIZ SILVA on 11/01/20 112 Calcium Carbonate/Vitamin D3 (Caltrate 600 + D Soft Chew Tab) 1 Each Tab.chew, 2 EACH PO DAILY, (Reported) Entered as Reported by: LIZ SILVA on 2/25/21 1124 Cyclobenzaprine HCl (Cyclobenzaprine HCl) 5 Mg Tablet, 5 MG PO TID PRN for muscle pain Prescribed by: Shala shearer on 04/07/22 1648 Diltiazem HCl (Cardizem Cd) 240 Mg Cap.er.24h, 240 MG PO DAILY, (Reported) Entered as Reported by: LIZ SILVA on 11/01/20 112 Ferrous Sulfate (Ferrous Sulfate) 325 Mg Tablet, 325 MG PO DAILY, (Reported) Entered as Reported by: LIZ SILVA on 11/01/20 112 Fish Oil/Borage/Flax/Om3,6,9#1 (Leo 3-6-9 1,200 mg Softgel) 1,200 Mg Capsule, 1,200 MG PO DAILY, (Reported) Entered as Reported by: LIZ SILVA on 11/01/20 112 Furosemide (Lasix) 20 Mg Tablet, 20 MG PO DAILY, (Reported) Entered as Reported by: LIZ SILVA on 11/01/20 112 Furosemide (Lasix) 20 Mg Tablet, 20 MG PO DAILY, (Reported) Entered as Reported by: LIZ SILVA on 11/01/20 112 Gabapentin (Neurontin) 300 Mg Capsule, 300 MG PO BID, (Reported) Entered as Reported by: LIZ SILVA on 11/01/20 112 Hydrocodone/Acetaminophen (Hydrocodone-Acetamin 5-325 mg) 5 Mg-325 Mg Tablet, 1 TAB PO Q12H PRN for PAIN-MODERATE (5-7) Prescribed by: Shala shearer on 04/07/22 1648 Levalbuterol HCl (Xopenex) 1.25 Mg/3 Ml Vial.neb, 1.25 MG INH BID, (Reported) Entered as Reported by: LIZ SILVA on 11/01/20 112 Levofloxacin (Levofloxacin) 750 Mg Tablet, 750 MG PO DAILY Prescribed by: BIGG RUDOLPH on 11/01/20 1148 Levothyroxine Sodium (Levothyroxine) 112 Mcg Capsule, 112 MCG PO DAILY, (Re ported) Entered as Reported by: LIZ SILVA on 11/01/20 112 Montelukast Sodium (Singulair) 10 Mg Tablet, 10 MG PO DAILY, (Reported) Entered as Reported by: LIZ SILVA on 11/01/20 1124 Pantoprazole Sodium (Protonix) 40 Mg Tablet.dr, 40 MG PO DAILY, (Reported) Entered as Reported by: LIZ SILVA on 11/01/20 1124 Potassium Chloride (Potassium Chloride) 20 Meq Tab.er.prt, 20 MEQ PO BID, (Reported) Entered as Reported by: LIZ SILVA on 11/01/20 1124 Prednisone (Prednisone) 20 Mg Tab, 40 MG PO DAILY Prescribed by: UMANG PRESTON on 12/23/20 1137 Rivaroxaban (Xarelto) 20 Mg Tablet, 20 MG PO DAILY, (Reported) Entered as Reported by: LIZ SILVA on 11/01/20 1124 Tiotropium [place] (Spiriva) 1 Inh Aerp, 2 INH IH DAILY, (Reported) Entered as Reported by: LIZ SILVA on 11/01/20 1124 Review of Systems Constitutional: no symptoms reported EENTM: no symptoms reported Respiratory: see HPI Cardiovascular: no symptoms reported Gastrointestinal: no symptoms reported Genitourinary: no symptoms reported Musculoskeletal: see HPI, back pain Skin: no symptoms reported Psychiatric/Neurological: No Symptoms Reported All Other Systems Reviewed Negative Unless Noted: Yes Past Rmuokvy-Rqgyfh-Pgyjaa Hx Patient Social History Use of E-Cig and/or Vaping dev: No Substance use?: No Alcohol Use?: No Seasonal Allergies Seasonal Allergies: No Past Medical History Surgeries: Yes (Colonoscopy) Lumpectomy, Orthopedic, Tonsillectomy Respiratory: Yes (Chronic O2 dependent, CPAP) Asthma, Sleep Apnea, COPD Cardiac: Yes (CHF (diastolic heart failure), cardiac dysrhythmias) Atrial Fibrillation Neurological: No Genitourinary: No Gastrointestinal: No Musculoskeletal: Yes Arthritis Endocrine: No HEENT: No Cancer: No Psychosocial: No Integumentary: No Blood Disorders: No Physical Exam Vital Signs Vital Signs - First Documented 04/07/22 11:35 Temp 37.6 Pulse 67 Resp 16 B/P (MAP) 153/69 (97) Pulse Ox 94 O2 Delivery Nasal Cannula Capillary Refill : Height, Weight, BMI Height: 5'3.00" Weight: 224lbs. oz. 101.283950oa; 30.00 BMI Method:Stated General Appearance: WD/WN, Mild Distress, Obese HEENT: PERRL/EOMI Neck: Full Range of Motion, Normal Inspection, Non Tender Cardiovascular: Regular Rate, Rhythm, No Edema, No Gallop, No JVD, No Murmur Respiratory: Chest Non Tender, Lungs Clear, Normal Breath Sounds, No Accessory Muscle Use Gastrointestinal: Normal Bowel Sounds, No Organomegaly, Non Tender, Soft, Other (Ventral hernia without signs of strangulation) Back: Normal Inspection, No CVA Tenderness Extremity: Normal Capillary Refill, Non Tender, No Calf Tenderness Neurologic/Psychiatric: Alert, Oriented x3, No Motor/Sensory Deficits Skin: Normal Color Progress/Results/Core Measures Results/Orders Lab Results Laboratory Tests Test 04/07/22 11:20 04/07/22 11:25 04/07/22 11:30 04/07/22 11:50 Range/Units White Blood Count 10.5 4.3-11.0 10^3/uL Red Blood Count 3.85 3.80-5.11 10^6/uL Hemoglobin 11.4 L 11.5-16.0 g/dL Hematocrit 37 35-52 % Mean Corpuscular Volume 96 80-99 fL Mean Corpuscular Hemoglobin 30 25-34 pg Mean Corpuscular Hemoglobin Concent 31 L 32-36 g/dL Red Cell Distribution Width 15.0 H 10.0-14.5 % Platelet Count 216 130-400 10^3/uL Mean Platelet Volume 9.0 9.0-12.2 fL Immature Granulocyte % (Auto) 1 % Neutrophils (%) (Auto) 77 H 42-75 % Lymphocytes (%) (Auto) 8 L 12-44 % Monocytes (%) (Auto) 9 0-12 % Eosinophils (%) (Auto) 5 0-10 % Basophils (%) (Auto) 0 0-10 % Neutrophils # (Auto) 8.1 H 1.8-7.8 10^3/uL Lymphocytes # (Auto) 0.9 L 1.0-4.0 10^3/uL Monocytes # (Auto) 1.0 0.0-1.0 10^3/uL Eosinophils # (Auto) 0.5 H 0.0-0.3 10^3/uL Basophils # (Auto) 0.0 0.0-0.1 10^3/uL Immature Granulocyte # (Auto) 0.1 0.0-0.1 10^3/uL Neutrophils % (Manual) 77 % Lymphocytes % (Manual) 6 % Monocytes % (Manual) 10 % Eosinophils % (Manual) 6 % Basophils % (Manual) 0 % Band Neutrophils 1 % Prothrombin Time 22.9 H 12.2-14.7 SEC INR Comment 2.0 H 0.8-1.4 Activated Partial Thromboplast Time 41 H 24-35 SEC Sodium Level 140 135-145 MMOL/L Potassium Level 4.2 3.6-5.0 MMOL/L Chloride Level 101 98-107 MMOL/L Carbon Dioxide Level 31 21-32 MMOL/L Anion Gap 8 5-14 MMOL/L Blood Urea Nitrogen 19 H 7-18 MG/DL Creatinine 0.86 0.60-1.30 MG/DL Estimat Glomerular Filtration Rate 68 BUN/Creatinine Ratio 22 Glucose Level 79 70-105 MG/DL Calcium Level 9.7 8.5-10.1 MG/DL Corrected Calcium 9.8 8.5-10.1 MG/DL Total Bilirubin 0.3 0.1-1.0 MG/DL Aspartate Amino Transf (AST/SGOT) 17 5-34 U/L Alanine Aminotransferase (ALT/SGPT) 14 0-55 U/L Alkaline Phosphatase 70 40-136 U/L Total Protein 6.9 6.4-8.2 GM/DL Albumin 3.9 3.2-4.5 GM/DL Urine Color YELLOW Urine Clarity SL CLOUDY Urine pH 6.0 5-9 Urine Specific [place] 1.025 H 1.016-1.022 Urine Protein TRACE H NEGATIVE Urine Glucose (UA) NEGATIVE NEGATIVE Urine Ketones NEGATIVE NEGATIVE Urine Nitrite NEGATIVE NEGATIVE Urine Bilirubin NEGATIVE NEGATIVE Urine Urobilinogen 0.2 < = 1.0 MG/DL Urine Leukocyte Esterase NEGATIVE NEGATIVE Urine RBC (Auto) NEGATIVE NEGATIVE Urine RBC RARE /HPF Urine WBC 0-2 /HPF Urine Squamous Epithelial Cells 0-2 /HPF Urine Crystals NONE /LPF Urine Bacteria NEGATIVE /HPF Urine Casts PRESENT /LPF Urine Hyaline Casts RARE /LPF Urine Mucus NEGATIVE /LPF Urine Culture Indicated NO Phosphorus Level 3.4 2.3-4.7 MG/DL Magnesium Level 2.3 1.6-2.4 MG/DL SARS-CoV-2 RNA (RT-PCR) Not Detected Not Detecte Lactic Acid Level 1.18 0.50-2.00 MMOL/L Test 04/07/22 13:02 04/07/22 13:38 04/07/22 14:10 04/07/22 14:52 Range/Units Blood Gas Puncture Site LT RADIAL Blood Gas Patient Temperature 37.6 C Arterial Blood pH 7.41 7.37-7.43 Arterial Blood Partial Pressure CO2 60 H 35-45 MMHG Arterial Blood Partial Pressure O2 101 H 79-93 MMHG Arterial Blood HCO3 38 H 23-27 MMOL/L Arterial Blood Total CO2 39.8 H 21.0-31.0 MMOL/L Arterial Blood Oxygen Saturation 98 94-100 % Arterial Blood Base Excess 11.1 H -2.5-2.5 MMOL/L Claudy Test OK Blood Gas Ventilator Setting NO Blood Gas Inspired Oxygen ROOM AIR Glucometer 99 55 *L 70-110 MG/DL Sodium Level 144 135-145 MMOL/L Potassium Level 3.6 3.6-5.0 MMOL/L Chloride Level 103 98-107 MMOL/L Carbon Dioxide Level 32 21-32 MMOL/L Anion Gap 9 5-14 MMOL/L Blood Urea Nitrogen 17 7-18 MG/DL Creatinine 0.79 0.60-1.30 MG/DL Estimat Glomerular Filtration Rate 75 BUN/Creatinine Ratio 22 Glucose Level 48 *L 70-105 MG/DL Calcium Level 9.1 8.5-10.1 MG/DL Test 04/07/22 15:52 Range/Units Glucometer 121 H 70-110 MG/DL My Orders Orders - SHALA SHEARER MD Comprehensive Metabolic Panel (04/07/22 11:25) Ua Culture If Indicated (04/07/22 11:25) Cbc With Automated Diff (04/07/22 11:25) Ct Lumbar Spine Wo (04/07/22 11:25) Protime With Inr (04/07/22 11:25) Partial Thromboplastin Time (04/07/22 11:25) Covid 19 Inhouse Test (04/07/22 11:25) Lactic Acid Analyzer (04/07/22 11:38) Ct Abdomen/Pelvis Wo (04/07/22 11:38) Manual Differential (04/07/22 11:20) D50w (Emergency) Syringe (Dextrose 50% 5 (04/07/22 12:15) Albuterol Pre-Mix Nebs (Rt) (Proventil (04/07/22 12:15) Svn Small Volume Nebulizer (04/07/22 12:13) Insulin (Regular) Human (Novolin R (Per (04/07/22 12:15) D50w (Emergency) Syringe (Dextrose 50% 5 (04/07/22 12:15) Sodium Bicarbonate 8.4% Syr (Sodium Bica (04/07/22 12:15) Ns Iv 1000 Ml (Sodium Chloride 0.9%) (04/07/22 12:15) Ekg Tracing (04/07/22 12:13) Magnesium (04/07/22 12:13) Phosphorus (04/07/22 12:13) Arterial Blood Gas (04/07/22 12:13) Bladder Scan (04/07/22 12:13) Albuterol Pre-Mix Nebs (Rt) (Proventil (04/07/22 12:48) Fentanyl Inj (Sublimaze Injection) (04/07/22 14:00) Basic Metabolic Panel (04/07/22 14:05) Hydralazine Injection (Apresoline Inject (04/07/22 14:45) D50w (Emergency) Syringe (Dextrose 50% 5 (04/07/22 15:00) Medications Given in ED Current Medications Medications Dose Ordered Sig/Arsh Route Start Time Stop Time Status Last Admin Dose Admin Dextrose 50 ml ONCE ONCE IV 04/07/22 15:00 04/07/22 15:01 DC 04/07/22 14:59 50 ML Fentanyl Citrate 25 mcg ONCE ONCE IVP 04/07/22 14:00 04/07/22 14:01 DC 04/07/22 14:08 25 MCG Hydralazine HCl 10 mg ONCE ONCE IV 04/07/22 14:45 04/07/22 14:46 DC 04/07/22 15:03 10 MG Vital Signs/I&O 04/07/22 11:35 Temp 37.6 Pulse 67 Resp 16 B/P (MAP) 153/69 (97) Pulse Ox 94 O2 Delivery Nasal Cannula 04/08/22 00:00 Intake Total 1000 ml Balance 1000 ml Blood Pressure Mean: 97 Progress Progress Note : Progress Note Evaluation of patient in ER showed 81-year-old female patient with complaining of intermittent episodes of low back pain in left side for 1 week that gradually getting worse. Patient had unremarkable physical exam. Labs showed normal white count with hemoglobin of 11.4. Lab reported potassium of 6.6, BUN of 68 and creatinine of 5.5, blood sugar of 43. EKG was obtained that showed paced rhythm. ABG, magnesium and phosphorus was requested. Patient treated for hypoglycemia with 1 amp of D50 and treated for hyperkalemia with 1 amp of D50 and 10 units of insulin, 5 mg of albuterol nebulizer, 1 amp of bicarb, and 1 L of normal saline. Repeat blood sugar after amp of D50 was 99. Because of acute renal failure with normal BUN/creatinine in previous labs 2 months ago, decided to transfer patient to a hospital with available ream cutter. Patient requeste d [facility] because she had another admission with abnormal kidney test at .. [facility] was contacted at 1240 and information of patient was given. informed us at 1420 that they did not have available bed. Patient requested [facility] in [place] and [facility] transfer team was contacted and Dr. Jackson Gibbs at 1440 informed about patient information and he mentioned that they would inform us about bed condition. Later on [facility] transfer team informed us that they did not have any available bed. Repeated CMP was reported and showed potassium of 3.5 and normal BUN and creatinine that did not make sense after having very high level of BUN/creatinine, with blood sugar of 44 and patient treated with another amp of D50. robotic maintenance technician"Elaina" was informed and after she checked the result, she stated that she had a wrong barcode and corrected the labs to a normal BUN and creatinine and blood sugar. Patient inform about technical mistake. Patient had elevation of blood pressure and treated with hydralazine and her blood pressure gradually decreased to 130s over 80s. Patient felt better after treatment with fentanyl for her pain and felt comfortable to go home. Patient stated she felt better with taking hydrocodone at home and prescription for hydrocodone and Flexeril 5 mg was given and advised to apply ice on her back and follow-up with her primary care physician or return to ER as needed. An incident report was filed by Lillian FLANNERY. Initial ECG Impression Date: Apr 07, 2022 Initial ECG Impression Time: 12:47 Comment EKG interpreted by me. EKG at 1247 showed electronic ventricular pacemaker. Diagnostic Imaging Diagonstic Imaging: CT Comments CT abdomen pelvis interpreted by radiologist and reviewed by me and showed: NAME: YAQUELIN WALTER I [facility] REC#: [id number] PT STATUS: REG ER : 1940 PHYSICIAN: SHALA SHEARER MD ADMIT DATE: 04/07/22/ER FS Draft Date of Exam:04/07/22 CT ABDOMEN/PELVIS WO PROCEDURE: CT abdomen and pelvis without contrast. TECHNIQUE: Multiple contiguous axial images were obtained through the abdomen and pelvis without the use of intravenous contrast. Auto Exposure Controls were utilized during the CT exam to meet ALARA standards for radiation dose reduction. INDICATION: Febrile. COMPARISON: 11/01/2020 FINDINGS: Included portions of the lung bases show bibasilar scarring and atelectasis. Heart is also mildly enlarged. CT ABDOMEN: Midline ventral hernia is identified and contains portion of the transverse colon. [place] measures 3.5 cm in diameter. There is no colonic wall thickening to suggest strangulation. Moderate amount of air and stool is noted scattered throughout the anterior descending, transverse, and descending colon. Normal appendix is identified. Small bowel loops are nondistended. The kidneys, adrenal glands, spleen, pancreas, and liver have an unremarkable noncontrast CT appearance. There is no loculated fluid collection, free fluid or free air within the abdomen. No abnormal mesenteric or retroperitoneal adenopathy is seen. Osseous structures show no acute abnormalities. CT PELVIS: Pelvis is partially obscured due to metallic beam hardening artifact from right hip prosthesis. Urinary bladder is unopacified and minimally distended. No calculi are seen within urinary bladder. There is no loculated fluid collection, free fluid or free air within the pelvis. No abnormal lymph nodes are seen. Osseous structures show no acute abnormalities. IMPRESSION: 1. Midline ventral hernia contains portion of the transverse colon. Moderate amount of air and stool is noted scattered throughout the ascending through to the descending colon may be on the basis of constipation, as opposed to obstruction. 2. Otherwise, no acute abnormalities are seen within the abdomen or pelvis. Dictated on workstation # [id number] Dict: 04/07/22 1202 Trans: 04/07/22 1210 [id number] Interpreted by: CRISTY WHITE MD Electronically signed by: CT lumbar spine interpreted by radiologist and reviewed by me and showed: NAME: YAQUELIN WALTER I [facility] REC#: [id number] PT STATUS: REG ER : 1940 PHYSICIAN: SHALA SHEARER MD ADMIT DATE: 04/07/22/ER FS Signed Date of Exam:04/07/22 CT LUMBAR SPINE WO PROCEDURE: CT lumbar spine without contrast. TECHNIQUE: Multiple contiguous axial images were obtained through the lumbar spine without the use of intravenous contrast. Sagittal and coronal reformations were then performed. Auto Exposure Controls were utilized during the CT exam to meet ALARA standards for radiation dose reduction. Date: April 07, 2022. Indication: 81-year-old female, low back pain. Comparison: CT chest abdomen pelvis November 01, 2020. Findings: There is a lumbar levocurvature. There is a thoracolumbar dextrocurvature. There is grade 1 anterolisthesis of L4 on L5 measuring 4 mm. There is no identified pars interarticularis defect. The anterolisthesis likely relates to advanced facet arthropathy at this level. There is severe disc height loss at T12-L1, L1-L2, L2-L3, and L4-L5. There is moderate to severe disc height loss at L5-S1. There is mild to moderate disc height loss at L3-L4. There is no identified compression deformity or other fracture. CT does have limitations for assessment of disc pathology as well as additional non-bony causes of pathology in the spinal canal. There is a diffuse disc bulge at L3-L4. There are also bilateral facet degenerative changes at this level. There is likely at least mild spinal stenosis. There is also a diffuse disc bulge at L4-L5 eccentric to the right with bilateral facet degenerative changes. There is suspected moderate right foraminal narrowing and likely at least moderate spinal stenosis. There also appears to be disc bulge at L5-S1 with bilateral facet degenerative changes at this level. There is no CT apparent high-grade foraminal or spinal stenosis. There are also additional disc degenerative and facet degenerative changes of the lumbar spine. There are atherosclerotic calcifications. There are predominantly linear opacities in the lung bases which may reflect scarring and/or atelectasis. Impression: 1. 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 2. No identified compression deformity or fracture Dictated by: Dictated on workstation # [id number] Dict: 04/07/22 1224 Trans: 04/07/22 1427 [facility] [place] [id number] Interpreted by: DES OTOOLE MD Electronically signed by: DES OTOOLE MD 04/07/22 1427 Departure Impression Primary Impression: Lumbar sprain Qualified Codes: S33.5XXA - Sprain of ligaments of lumbar spine, initial encounter Additional Impression: Uncontrolled hypertension Disposition: HOME, SELF-CARE (Assisting living home) Condition: Improved Departure-Patient Inst. Decision time for Depature: 16:47 Referrals: BARBARA MARTINEZ MD (PCP) Primary Care Physician Patient Instructions: Back Muscle Strain (DC), Low Back Pain (DC) Add. Discharge Instructions: Apply ice on your back Follow-up with your primary care physician in 3 to 5 days Return to ER as needed All discharge instructions reviewed with patient and/or family. Voiced understanding. Scripts Hydrocodone/Acetaminophen (Hydrocodone-Acetamin 5-325 mg) 5 Mg-325 Mg Tablet 1 TAB PO Q12H PRN for PAIN-MODERATE (5-7), #14 TAB Prov: SHALA SHEARER MD 04/07/22 Cyclobenzaprine HCl (Cyclobenzaprine HCl) 5 Mg Tablet 5 MG PO TID PRN for muscle pain, #20 TAB Prov: SHALA SHEARER MD 04/07/22 SHALA SHEARER MD Apr 07, 2022 12:25
[2022-04-07 12:40] LABS: MAGNESIUM 2.3 MG/DL (1.6-2.4)
[2022-04-07] MEDS ORDERED: RT-ALBUTEROL SULF 2.5 MG/3 ML PRE-MIX VIAL ONE (12:48)
--- NOTE | 2022-04-07 12:56 | Diagnostic Imaging Report ---
PROCEDURE: CT lumbar spine without contrast. TECHNIQUE: Multiple contiguous axial images were obtained through the lumbar spine without the use of intravenous contrast. Sagittal and coronal reformations were then performed. Auto Exposure Controls were utilized during the CT exam to meet ALARA standards for radiation dose reduction. Date: April 07, 2022. Indication: 81-year-old female, low back pain. Comparison: CT chest abdomen pelvis November 01, 2020. Findings: There is a lumbar levocurvature. There is a thoracolumbar dextrocurvature. There is grade 1 anterolisthesis of L4 on L5 measuring 4 mm. There is no identified pars interarticularis defect. The anterolisthesis likely relates to advanced facet arthropathy at this level. There is severe disc height loss at T12-L1, L1-L2, L2-L3, and L4-L5. There is moderate to severe disc height loss at L5-S1. There is mild to moderate disc height loss at L3-L4. There is no identified compression deformity or other fracture. CT does have limitations for assessment of disc pathology as well as additional non-bony causes of pathology in the spinal canal. There is a diffuse disc bulge at L3-L4. There are also bilateral facet degenerative changes at this level. There is likely at least mild spinal stenosis. There is also a diffuse disc bulge at L4-L5 eccentric to the right with bilateral facet degenerative changes. There is suspected moderate right foraminal narrowing and likely at least moderate spinal stenosis. There also appears to be disc bulge at L5-S1 with bilateral facet degenerative changes at this level. There is no CT apparent high-grade foraminal or spinal stenosis. There are also additional disc degenerative and facet degenerative changes of the lumbar spine. There are atherosclerotic calcifications. There are predominantly linear opacities in the lung bases which may reflect scarring and/or atelectasis. Impression: 1. 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 2. No identified compression deformity or fracture Dictated by: Dictated on workstation # [id number]
[2022-04-07 13:34] LABS: ABG BASE EXCESS 11.1 MMOL/L (-2.5-2.5); ABG OXYGEN SATURATION 98 % (94-100); ABG PCO2 60 MMHG (35-45); ABG PH 7.41 (7.37-7.43); ABG PO2 101 MMHG (79-93); ABG TCO2 39.8 MMOL/L (21.0-31.0)
[2022-04-07 13:35] LABS: INSPIRED O2 ROOM AIR; VENTILATOR NO
[2022-04-07 13:36] LABS: ALLENS TEST OK; PATIENT TEMP 37.6 C
[2022-04-07] MEDS ORDERED: fentaNYL INJ 100 MCG/2 ML AMP IVP ONE (14:00)
[2022-04-07] MEDS ORDERED: hydrALAZINE (APESOLINE) 20 MG/ML VIAL IV ONE (14:45)
[2022-04-07 14:46] LABS: CREATININE SERUM 0.79 MG/DL (0.60-1.30); POTASSIUM 3.6 MMOL/L (3.6-5.0)
[2022-04-07 14:47] LABS: CALCIUM 9.1 MG/DL (8.5-10.1)
[2022-04-07 15:03] LABS: POTASSIUM 4.2 MMOL/L (3.6-5.0)
[2022-04-07 15:05] LABS: CREATININE SERUM 0.86 MG/DL (0.60-1.30)
[2022-04-07 15:06] LABS: CALCIUM 9.7 MG/DL (8.5-10.1)
[2022-04-07 15:07] LABS: BILIRUBIN,TOTAL 0.3 MG/DL (0.1-1.0)
[2022-04-07 15:09] LABS: ALBUMIN 3.9 GM/DL (3.2-4.5); TOTAL PROTEIN 6.9 GM/DL (6.4-8.2)
[2022-04-07 15:22] LABS: PHOSPHORUS 3.4 MG/DL (2.3-4.7)
[2022-04-07] MEDS ORDERED: ACHD5005 PO (16:48)
[2022-04-07] MEDS ORDERED: CYCL5TAB PO (16:48)
== END 2022-04-07 18:49 | disposition home or self-care (01) ==
LOC: EDUNIT# 11:19 → ER FS 11:21
DX: S33.5XXA Sprain of ligaments of lumbar spine, initial encounter (principal); I10 Essential (primary) hypertension; E16.2 Hypoglycemia, unspecified; E87.5 Hyperkalemia; J45.909 Unspecified asthma, uncomplicated; I48.91 Unspecified atrial fibrillation; G47.30 Sleep apnea, unspecified; E66.9 Obesity, unspecified; Z68.30 Body mass index [BMI] 30.0-30.9, adult; Z99.89 Dependence on other enabling machines and devices; Z79.01 Long term (current) use of anticoagulants; Z20.822 Contact with and (suspected) exposure to COVID-19; X58.XXXA Exposure to other specified factors, initial encounter
CPT/HCPCS: 36415; 72131; 74176; 80048; 80053; 81000; 82805; 82947; 83605; 83735; 84100; 85007; 85027; 85610; 85730; 87636; 93005

== ENCOUNTER 2022-05-04 17:59 | Emergency (ER) | payer MEDICARE ==
[~2022-05-04] VITALS: Ht 157.5 cm; Wt 75.4 kg
[~2022-05-04 17:59] MED LIST changes: +ACHD5005 PO; +CYCL5TAB PO
[2022-05-04 18:23] LABS: BASOPHILS % (AUTO) 0 % (0-10); EOSINOPHILS # (AUTO) 0.2 10^3/uL (0.0-0.3); EOSINOPHILS % (AUTO) 3 % (0-10); HEMATOCRIT 30 % (35-52); HEMOGLOBIN 9.3 g/dL (11.5-16.0); LYMPHOCYTES # (AUTO) 0.8 10^3/uL (1.0-4.0); LYMPHOCYTES % (AUTO) 11 % (12-44); MEAN CORPUSCULAR HEMOGLOBIN 30 pg (25-34); MEAN CORPUSCULAR HGB CONC 31 g/dL (32-36); MEAN CORPUSCULAR VOLUME 97 fL (80-99); MEAN PLATELET VOLUME 9.7 fL (9.0-12.2); MONOCYTES # (AUTO) 0.9 10^3/uL (0.0-1.0); MONOCYTES % (AUTO) 12 % (0-12); NEUTROPHILS # (AUTO) 5.4 10^3/uL (1.8-7.8); NEUTROPHILS % (AUTO) 73 % (42-75); PLATELET COUNT 234 10^3/uL (130-400); WHITE BLOOD COUNT 7.3 10^3/uL (4.3-11.0)
--- NOTE | 2022-05-04 18:24 | ED Lower Extremity ---
General Stated Complaint: FOOT INJ Source: patient, EMS History of Present Illness Date Seen by Provider: May 04, 2022 Time Seen by Provider: 18:05 Initial Comments 81-year-old female presenting from al[facility] by EMS due to increased pain and swelling with redness to her left foot. She had accidentally dropped her cell phone onto her foot April 25. When this happened she developed a hematoma and blister on the top of her foot. The alf has been treating it topically. She has been trying to elevate her foot is much as possible. She stated that the pain was worse in the last few days and she felt that the blister was getting bigger. She was worried because only the nurses at the alf had evaluated it and she had not been to see her physician. She had previously told the nurses that she did not want to come to the ER unless the blister had broke open. However today they talked her into coming out to be seen since no provider had actually seen other than the nurses. Onset: other (04/25) Severity: moderate Pain/Injury Location: left foot Method of Injury: direct blow (cell phone fell on her foot while she was getting up for a transfer) Modifying Factors: Worse With Movement Allergies and Home Medications Allergies Coded Allergies: aspirin (Verified Allergy, Unknown, 11/24/18) albuterol (Verified Adverse Reaction, Unknown, afib rvr, 11/24/18) Uncoded Allergies: PLASTIC TAPE (Adverse Reaction, Unknown, 11/24/18) Patient Home Medication List Home Medication List Reviewed: Yes Acetaminophen (Acetaminophen 8 Hour) 650 Mg Tablet.er, 1,300 MG PO BID, (Reported) Entered as Reported by: LIZ SILVA on 11/01/20 112 Budesonide (Budesonide) 0.5 Mg/2 Ml Ampul.neb, 0.5 MG IH BID, (Reported) Entered as Reported by: LIZ SILVA on 11/01/20 112 Calcium Carbonate/Vitamin D3 (Caltrate 600 + D Soft Chew Tab) 1 Each Tab.chew, 2 EACH PO DAILY, (Reported) Entered as Reported by: LIZ SILVA on 11/01/20 112 Cyclobenzaprine HCl (Cyclobenzaprine HCl) 5 Mg Tablet, 5 MG PO TID PRN for muscle pain Prescribed by: Shala guzman on 04/07/22 1648 Diltiazem HCl (Cardizem Cd) 240 Mg Cap.er.24h, 240 MG PO DAILY, (Reported) Entered as Reported by: LIZ SILVA on 11/01/20 112 Ferrous Sulfate (Ferrous Sulfate) 325 Mg Tablet, 325 MG PO DAILY, (Reported) Entered as Reported by: LIZ SILVA on 11/01/20 112 Fish Oil/Borage/Flax/Om3,6,9#1 ([place] 3-6-9 1,200 mg Softgel) 1,200 Mg Capsule, 1,200 MG PO DAILY, (Reported) Entered as Reported by: LIZ SILVA on 11/01/20 112 Furosemide (Lasix) 20 Mg Tablet, 20 MG PO DAILY, (Reported) Entered as Reported by: LIZ SILVA on 11/01/20 112 Furosemide (Lasix) 20 Mg Tablet, 20 MG PO DAILY, (Reported) Entered as Reported by: LIZ SILVA on 11/01/20 112 Gabapentin (Neurontin) 300 Mg Capsule, 300 MG PO BID, (Reported) Entered as Reported by: LIZ SILVA on 11/01/20 112 Hydrocodone/Acetaminophen (Hydrocodone-Acetamin 5-325 mg) 5 Mg-325 Mg Tablet, 1 TAB PO Q12H PRN for PAIN-MODERATE (5-7) Prescribed by: Shala guzman on 04/07/22 1648 Levalbuterol HCl (Xopenex) 1.25 Mg/3 Ml Vial.neb, 1.25 MG INH BID, (Reported) Entered as Reported by: LIZ SILVA on 11/01/20 112 Levofloxacin (Levofloxacin) 750 Mg Tablet, 750 MG PO DAILY Prescribed by: BIGG RUDOLPH on 11/01/20 1148 Levofloxacin (Levofloxacin) 500 Mg Tablet, 500 MG PO DAILY Prescribed by: BIGG RUDOLPH on 05/04/22 1904 Levothyroxine Sodium (Levothyroxine) 112 Mcg Capsule, 112 MCG PO DAILY, (Reported) Entered as Reported by: LIZ SILVA on 11/01/20 112 Montelukast Sodium (Singulair) 10 Mg Tablet, 10 MG PO DAILY, (Reported) Entered as Reported by: LIZ SILVA on 11/01/20 1124 Pantoprazole Sodium (Protonix) 40 Mg Tablet.dr, 40 MG PO DAILY, (Reported) Entered as Reported by: LIZ SILVA on 11/01/20 112 Potassium Chloride (Potassium Chloride) 20 Meq Tab.er.prt, 20 MEQ PO BID, (Reported) Entered as Reported by: LIZ SILVA on 11/01/20 1124 Prednisone (Prednisone) 20 Mg Tab, 40 MG PO DAILY Prescribed by: UMANG PRESTON on 12/23/20 1137 Rivaroxaban (Xarelto) 20 Mg Tablet, 20 MG PO DAILY, (Reported) Entered as Reported by: LIZ SILAV on 11/01/20 112 Tiotropium [place] (Spiriva) 1 Inh Aerp, 2 INH IH DAILY, (Reported) Entered as Reported by: LIZ SILVA on 11/01/20 1124 Review of Systems Constitutional: No chills, No fever; malaise EENTM: no symptoms reported Respiratory: no symptoms reported Cardiovascular: no symptoms reported Gastrointestinal: no symptoms reported Genitourinary: no symptoms reported Musculoskeletal: other (pain to the left foot and sensation like electric shocks in her foot) Skin: see HPI, change in color (redness and increased warmth to the foot and ankle. large hematoma blister to the top of foot) Psychiatric/Neurological: Anxiety Past Mnjhcdg-Wnzzwi-Ogndku Hx Patient Social History Tobacco Use?: No Use of E-Cig and/or Vaping dev: No Substance use?: No Alcohol Use?: No Seasonal Allergies Seasonal Allergies: No Past Medical History Surgery/Hospitalization HX: Atrial fibrillation with ablation, pacemaker, COPD, MAGDALENA,arthritis Surgeries: Yes (Colonoscopy) Lumpectomy, Orthopedic, Pacemaker, Tonsillectomy Respiratory: Yes (Chronic O2 dependent, CPAP) Asthma, Sleep Apnea, COPD Cardiac: Yes (CHF (diastolic heart failure), cardiac dysrhythmias) Atrial Fibrillation Neurological: No Genitourinary: No Gastrointestinal: No Musculoskeletal: Yes Arthritis Endocrine: No HEENT: No Cancer: No Psychosocial: No Integumentary: No Blood Disorders: No Physical Exam Vital Signs Vital Signs - First Documented 05/04/22 17:59 Temp 36.6 Pulse 72 Resp 16 B/P (MAP) 99/52 (68) Pulse Ox 95 O2 Delivery Nasal Cannula O2 Flow Rate 4.00 Capillary Refill : Height, Weight, BMI Height: 5'3.00" Weight: 224lbs. oz. 101.216853ml; 30.00 BMI Method:Stated General Appearance: WD/WN, no apparent distress HEENT: pharynx normal Neck: non-tender, full range of motion, supple, normal inspection Cardiovascular: No normal peripheral pulses (1/4 dorsalis pedis and posterior tibialis pulses bilaterally); regular rate, rhythm Respiratory: chest non-tender, lungs clear, normal breath sounds, no resp iratory distress, no accessory muscle use Gastrointestinal: normal bowel sounds, non tender, soft, no pulsatile mass Feet: left foot ecchymosis (hematoma with blister to top of foot with surrounding erythema and increased warmth), left foot pain, left foot soft tissue tenderness, left foot swelling Neurologic/Tendon: normal sensation, normal motor functions Neurologic/Psychiatric: alert, oriented x 3 Skin: warm/dry, ecchymosis (hematoma to top of left foot with blister), other (erythema with increased warmth and swelling to left foot and anikle) Progress/Results/Core Measures Results/Orders Lab Results Laboratory Tests Test 05/04/22 18:15 Range/Units White Blood Count 7.3 4.3-11.0 10^3/uL Red Blood Count 3.12 L 3.80-5.11 10^6/uL Hemoglobin 9.3 L 11.5-16.0 g/dL Hematocrit 30 L 35-52 % Mean Corpuscular Volume 97 80-99 fL Mean Corpuscular Hemoglobin 30 25-34 pg Mean Corpuscular Hemoglobin Concent 31 L 32-36 g/dL Red Cell Distribution Width 15.8 H 10.0-14.5 % Platelet Count 234 130-400 10^3/uL Mean Platelet Volume 9.7 9.0-12.2 fL Immature Granulocyte % (Auto) 1 % Neutrophils (%) (Auto) 73 42-75 % Lymphocytes (%) (Auto) 11 L 12-44 % Monocytes (%) (Auto) 12 0-12 % Eosinophils (%) (Auto) 3 0-10 % Basophils (%) (Auto) 0 0-10 % Neutrophils # (Auto) 5.4 1.8-7.8 10^3/uL Lymphocytes # (Auto) 0.8 L 1.0-4.0 10^3/uL Monocytes # (Auto) 0.9 0.0-1.0 10^3/uL Eosinophils # (Auto) 0.2 0.0-0.3 10^3/uL Basophils # (Auto) 0.0 0.0-0.1 10^3/uL Immature Granulocyte # (Auto) 0.1 0.0-0.1 10^3/uL Prothrombin Time 17.1 H 12.2-14.7 SEC INR Comment 1.4 0.8-1.4 Activated Partial Thromboplast Time 42 H 24-35 SEC Sodium Level 146 H 135-145 MMOL/L Potassium Level 4.8 3.6-5.0 MMOL/L Chloride Level 105 98-107 MMOL/L Carbon Dioxide Level 32 21-32 MMOL/L Anion Gap 9 5-14 MMOL/L Blood Urea Nitrogen 32 H 7-18 MG/DL Creatinine 0.99 0.60-1.30 MG/DL Estimat Glomerular Filtration Rate 57 BUN/Creatinine Ratio 32 Glucose Level 127 H 70-105 MG/DL Lactic Acid Level 1.84 0.50-2.00 MMOL/L Calcium Level 9.9 8.5-10.1 MG/DL Corrected Calcium 10.5 H 8.5-10.1 MG/DL Total Bilirubin 0.3 0.1-1.0 MG/DL Aspartate Amino Transf (AST/SGOT) 22 5-34 U/L Alanine Aminotransferase (ALT/SGPT) 18 0-55 U/L Alkaline Phosphatase 72 40-136 U/L C-Reactive Protein 16.20 H <0.50 MG/DL Total Protein 6.2 L 6.4-8.2 GM/DL Albumin 3.3 3.2-4.5 GM/DL My Orders Orders - BIGG RUDOLPH MD Cbc With Automated Diff (05/04/22 18:17) Comprehensive Metabolic Panel (05/04/22 18:17) Protime With Inr (05/04/22 18:17) Partial Thromboplastin Time (05/04/22 18:17) O2 (05/04/22 18:17) Ed Iv/Invasive Line Start (05/04/22 18:17) Blood Culture (05/04/22 18:17) Lactic Acid Analyzer (05/04/22 18:17) Foot 3 View Left (05/04/22 18:17) Blood Culture (05/04/22 18:30) Crp Fs (05/04/22 18:28) Levofloxacin Tablet (Levaquin Tablet) (05/04/22 19:05) Vital Signs/I&O 05/04/22 05/04/22 05/04/22 17:59 17:59 19:08 Temp 36.6 Pulse 72 76 Resp 16 16 B/P (MAP) 99/52 (68) 107/52 Pulse Ox 95 95 94 O2 Delivery Nasal Cannula Nasal Cannula Room Air O2 Flow Rate 4.00 4.00 Progress Progress Note #1: Progress Note Obtain blood work and blood culture with lactic acid to look for signs of sepsis and infection. Xray to look for signs of infection, osteomyelitis, gangrene. Progress Note #2: Time: 18:58 Progress Note CBC shows a hemoglobin of 9.3. Her white blood cell count is 7.3. She does not have a left shift. Her lactic acid was not elevated. She has mild elevation of her BUN to 32. X-rays of the foot did not show any gas in the soft tissues or signs of osteomyelitis. She has soft tissue swelling and a large hematoma. CRP is elevated to go along with inflammatory process. I discussed the case with Dr. Martinez and he recommends starting her empirically on course of levaquin antibiotic and continue wound care at the alf. Diagnostic Imaging Diagonstic Imaging: Xray Plain Films/CT/US/NM/MRI: other (left foot) Comments [facility], [place] NAME: YAQUELIN WALTER I [facility] REC#: [id number] PT STATUS: REG ER : 1940 PHYSICIAN: BIGG RUDOLPH MD ADMIT DATE: 05/04/22/ER FS Signed Date of Exam:05/04/22 FOOT 3 VIEW LEFT EXAMINATION: Left foot radiographs, 3 views. COMPARISON: None. HISTORY: 81-year-old female, left foot pain. FINDINGS: There is no identified acute fracture. There is very prominent soft tissue swelling at the dorsal aspect of the foot centered in the region of the metatarsals. There is a small calcaneal heel spur. There are vascular related calcifications. The joint spaces appear fairly well-preserved. IMPRESSION: 1. Extensive dorsal soft tissue swelling of the left foot centered at the level of the metatarsals. 2. No identified acute osseous abnormality. 3. No identified radiopaque foreign body. Dictated by: Dictated on workstation # [id number] Dict: 05/04/221829 Trans: 05/04/221836 PJE [id number] Interpreted by: DES OTOOLE MD Electronically signed by: DES OTOOLE MD 05/04/221836 Reviewed: Reviewed by Me Departure Impression Primary Impression: Traumatic hematoma of left foot Qualified Codes: S90.32XA - Contusion of left foot, initial encounter Additional Impressions: Foot pain, left Swelling of left foot Cellulitis of foot, left Disposition: 01 HOME, SELF-CARE Condition: Stable Departure-Patient Inst. Decision time for Depature: 19:01 Referrals: BARBARA MARTINEZ MD (PCP) Primary Care Physician Patient Instructions: Cellulitis (Skin Infection), Adult ED, HEMATOMA, Minor Contusion ED Add. Discharge Instructions: Take the full course of antibiotics to treat for possible skin infection. Continue to elevate the foot as much as possible and have wound care for the hematoma. May apply ice 10-15 minutes 3 times a day while awake to help with hematoma, swelling and pain. May take Acetaminophen 650 mg every 6 hours as needed to help with pain in addition to the Tramadol you already have Check back with Dr. Martinez for continued concerns Scripts Levofloxacin (Levofloxacin) 500 Mg Tablet 500 MG PO DAILY for cellulitis for 10 Days, #9 TAB 0 Refills Prov: BIGG RUDOLPH MD 05/04/22 BIGG RUDOLPH MD May 04, 2022 18:24
--- NOTE | 2022-05-04 18:33 | Diagnostic Imaging Report ---
EXAMINATION: Left foot radiographs, 3 views. COMPARISON: None. HISTORY: 81-year-old female, left foot pain. FINDINGS: There is no identified acute fracture. There is very prominent soft tissue swelling at the dorsal aspect of the foot centered in the region of the metatarsals. There is a small calcaneal heel spur. There are vascular related calcifications. The joint spaces appear fairly well-preserved. IMPRESSION: 1. Extensive dorsal soft tissue swelling of the left foot centered at the level of the metatarsals. 2. No identified acute osseous abnormality. 3. No identified radiopaque foreign body. Dictated by: Dictated on workstation # [id number]
[2022-05-04 18:37] LABS: INR 1.4 (0.8-1.4); PROTHROMBIN TIME PATIENT 17.1 SEC (12.2-14.7)
[2022-05-04 18:47] LABS: CALCIUM 9.9 MG/DL (8.5-10.1); CREATININE SERUM 0.99 MG/DL (0.60-1.30); POTASSIUM 4.8 MMOL/L (3.6-5.0)
[2022-05-04 18:48] LABS: ALBUMIN 3.3 GM/DL (3.2-4.5); BILIRUBIN,TOTAL 0.3 MG/DL (0.1-1.0); TOTAL PROTEIN 6.2 GM/DL (6.4-8.2)
[2022-05-04] MEDS ORDERED: LEVO500T81 PO (19:04)
[2022-05-04 19:08] VITALS: BP 107/52
== END 2022-05-04 19:46 | disposition home or self-care (01) ==
LOC: EDUNIT# 17:59 → ER FS 18:00
DX: S90.32XA Contusion of left foot, initial encounter (principal); L03.116 Cellulitis of left lower limb; G47.30 Sleep apnea, unspecified; Z99.89 Dependence on other enabling machines and devices; W20.8XXA Other cause of strike by thrown, projected or falling object, initial encounter
CPT/HCPCS: 36415; 73630; 80053; 83605; 85025; 85610; 85730; 86141; 87040

== ENCOUNTER 2022-07-16 16:26 | Emergency (ER) | payer MEDICARE ==
[~2022-07-16] VITALS: Ht 170 cm; Wt 73.0 kg
[~2022-07-16 16:26] MED LIST changes: +LEVO-55 PO; -LEVO500T81 PO; +LEVO750T PO; -LEVO750T39 PO
--- NOTE | 2022-07-16 16:50 | ED Lower Extremity ---
General Chief Complaint: Lower Extremity Stated Complaint: SWELLING/TENDERNESS L CALF Source: patient History of Present Illness Date Seen by Provider: Jul 16, 2022 Time Seen by Provider: 16:26 Initial Comments 81-year-old female presenting from [facility] by EMS with complaints of right leg swelling to lateral part of leg for last week or two. She had recent fall from her recliner and has had pain and swelling to right foot since then. They recently obtained an x-ray of the right foot and she was told that she had a fracture in her pinky toe. She has had pain and swelling in that foot ever since she fell from the recliner. She states that in the last week or so she has had increased swelling to the right lateral lower extremity. She was not having any pain in that area and there was no discoloration or redness. She denied pain in the calf or swelling to the entire leg it was just to the outer part of her right leg. She states that her primary care provider, Dr. Martinez, had told her to go to the emergency department to have labs and possible ultrasound to look for blood clot. She also states that she has been having a nosebleed on the right side that she could not get to stop all day. She continues to take her Xarelto daily and took it this morning. She also states she has had bright red blood from hemorrhoids when she goes to the bathroom. Severity: mild Pain/Injury Location: right leg, right foot Method of Injury: fell Allergies and Home Medications Allergies Coded Allergies: aspirin (Verified Allergy, Unknown, 11/24/18) albuterol (Verified Adverse Reaction, Unknown, afib rvr, 11/24/18) Uncoded Allergies: PLASTIC TAPE (Adverse Reaction, Unknown, 11/24/18) Patient Home Medication List Home Medication List Reviewed: Yes Acetaminophen (Acetaminophen 8 Hour) 650 Mg Tablet.er, 1,300 MG PO BID, (Reported) Entered as Reported by: LIZ SILVA on 11/01/20 112 Budesonide (Budesonide) 0.5 Mg/2 Ml Ampul.neb, 0.5 MG IH BID, (Reported) Entered as Reported by: LIZ SILVA on 11/01/20 1124 Calcium Carbonate/Vitamin D3 (Caltrate 600 + D Soft Chew Tab) 1 Each Tab.chew, 2 EACH PO DAILY, (Reported) Entered as Reported by: LIZ SILVA on 11/01/20 112 Cyclobenzaprine HCl (Cyclobenzaprine HCl) 5 Mg Tablet, 5 MG PO TID PRN for muscle pain Prescribed by: Shala guzman on 04/07/22 164 Diltiazem HCl (Cardizem Cd) 240 Mg Cap.er.24h, 240 MG PO DAILY, (Reported) Entered as Reported by: LIZ SILVA on 11/01/20 112 Ferrous Sulfate (Ferrous Sulfate) 325 Mg Tablet, 325 MG PO DAILY, (Reported) Entered as Reported by: LIZ SILVA on 11/01/20 112 Fish Oil/Borage/Flax/Om3,6,9#1 ([place] 3-6-9 1,200 mg Softgel) 1,200 Mg Capsule, 1,200 MG PO DAILY, (Reported) Entered as Reported by: LIZ SILVA on 11/01/20 112 Furosemide (Lasix) 20 Mg Tablet, 20 MG PO DAILY, (Reported) Entered as Reported by: LIZ SILVA on 11/01/20 112 Furosemide (Lasix) 20 Mg Tablet, 20 MG PO DAILY, (Reported) Entered as Reported by: LIZ SILVA on 11/01/20 112 Gabapentin (Neurontin) 300 Mg Capsule, 300 MG PO BID, (Reported) Entered as Reported by: LIZ SILVA on 11/01/20 112 Hydrocodone/Acetaminophen (Hydrocodone-Acetamin 5-325 mg) 5 Mg-325 Mg Tablet, 1 TAB PO Q12H PRN for PAIN-MODERATE (5-7) Prescribed by: Shala guzman on 04/07/22 164 Levalbuterol HCl (Xopenex) 1.25 Mg/3 Ml Vial.neb, 1.25 MG INH BID, (Reported) Entered as Reported by: LIZ SILVA on 11/01/20 112 Levofloxacin (Levofloxacin) 750 Mg Tablet, 750 MG PO DAILY Prescribed by: BIGG RUDOLPH on 11/01/20 1148 Levofloxacin (Levofloxacin) 500 Mg Tablet, 500 MG PO DAILY Prescribed by: BIGG RUDOLPH on 05/04/22 1904 Levothyroxine Sodium (Levothyroxine) 112 Mcg Capsule, 112 MCG PO DAILY, (Reported) Entered as Reported by: LIZ SILVA on 11/01/20 1124 Montelukast Sodium (Singulair) 10 Mg Tablet, 10 MG PO DAILY, (Reported) Entered as Reported by: LIZ SILVA on 11/01/20 112 Pantoprazole Sodium (Protonix) 40 Mg Tablet.dr, 40 MG PO DAILY, (Reported) Entered as Reported by: LIZ SILVA on 11/01/20 112 Potassium Chloride (Potassium Chloride) 20 Meq Tab.er.prt, 20 MEQ PO BID, (Reported) Entered as Reported by: LIZ SILVA on 11/01/20 1124 Prednisone (Prednisone) 20 Mg Tab, 40 MG PO DAILY Prescribed by: UMANG PRESTON on 12/23/20 1137 Rivaroxaban (Xarelto) 20 Mg Tablet, 20 MG PO DAILY, (Reported) Entered as Reported by: LIZ SILVA on 11/01/20 112 Tiotropium [place] (Spiriva) 1 Inh Aerp, 2 INH IH DAILY, (Reported) Entered as Reported by: LIZ SILVA on 11/01/20 1124 Review of Systems Constitutional: No chills, No fever EENTM: see HPI Respiratory: no symptoms reported Cardiovascular: no symptoms reported Gastrointestinal: see HPI Genitourinary: no symptoms reported Musculoskeletal: see HPI Skin: see HPI Psychiatric/Neurological: No Symptoms Reported Past Kjawbgq-Clxvrw-Jwibpp Hx Patient Social History Tobacco Use?: No Use of E-Cig and/or Vaping dev: No Substance use?: No Alcohol Use?: No Seasonal Allergies Seasonal Allergies: No Past Medical History Surgery/Hospitalization HX: Atrial fibrillation with ablation, pacemaker, COPD, MAGDALENA,arthritis Surgeries: Yes (Colonoscopy) Lumpectomy, Orthopedic, Pacemaker, Tonsillectomy Respiratory: Yes (Chronic O2 dependent, CPAP) Asthma, Sleep Apnea, COPD Cardiac: Yes (CHF (diastolic heart failure), cardiac dysrhythmias) Atrial Fibrillation Neurological: No Genitourinary: No Gastrointestinal: No Musculoskeletal: Yes Arthritis Endocrine: No HEENT: No Cancer: No Psychosocial: No Integumentary: No Blood Disorders: No Physical Exam Vital Signs Vital Signs - First Documented 07/16/22 16:46 Temp 36.7 Pulse 93 Resp 16 Pulse Ox 100 O2 Delivery Nasal Cannula Capillary Refill : Height, Weight, BMI Height: 5'3.00" Weight: 224lbs. oz. 101.930832qu; 30.00 BMI Method:Stated General Appearance: no apparent distress HEENT: PERRL/EOMI, pharynx normal, other (patient had tissue paper in right nare. When removed she had no active bleeding. She had irritation to septum right side so silver nitrate applied to cauterize irritated area) Neck: non-tender, full range of motion, supple, normal inspection Cardiovascular: normal peripheral pulses, regular rate, rhythm Legs: bilateral leg non-tender, bilateral leg no evidence of injury; right leg swelling (RLE lateral swelling without pain to calf, erythema or increased warmth) Neurologic/Psychiatric: alert, oriented x 3 Skin: normal color, warm/dry Procedures/Interventions Nasal : Nasal Location: Right Inspection with: Otoscope Nasal Procedures: Cauterized w/Silver Nitra Progress After obtaining verbal consent from the patient today silver nitrate stick was used to cauterize the anterior irritation of the right septum. Patient tolerated procedure well without any immediate complication. She had no active bleeding either pre or post cauterization. Progress/Results/Core Measures Results/Orders Lab Results Laboratory Tests Test 07/16/22 16:42 Range/Units White Blood Count 7.5 4.3-11.0 10^3/uL Red Blood Count 3.67 L 3.80-5.11 10^6/uL Hemoglobin 10.1 L 11.5-16.0 g/dL Hematocrit 35 35-52 % Mean Corpuscular Volume 95 80-99 fL Mean Corpuscular Hemoglobin 28 25-34 pg Mean Corpuscular Hemoglobin Concent 29 L 32-36 g/dL Red Cell Distribution Width 15.8 H 10.0-14.5 % Platelet Count 287 130-400 10^3/uL Mean Platelet Volume 9.4 9.0-12.2 fL Immature Granulocyte % (Auto) 2 % Neutrophils (%) (Auto) 78 H 42-75 % Lymphocytes (%) (Auto) 10 L 12-44 % Monocytes (%) (Auto) 9 0-12 % Eosinophils (%) (Auto) 1 0-10 % Basophils (%) (Auto) 1 0-10 % Neutrophils # (Auto) 5.9 1.8-7.8 10^3/uL Lymphocytes # (Auto) 0.8 L 1.0-4.0 10^3/uL Monocytes # (Auto) 0.6 0.0-1.0 10^3/uL Eosinophils # (Auto) 0.1 0.0-0.3 10^3/uL Basophils # (Auto) 0.1 0.0-0.1 10^3/uL Immature Granulocyte # (Auto) 0.1 0.0-0.1 10^3/uL Prothrombin Time 16.9 H 12.2-14.7 SEC INR Comment 1.3 0.8-1.4 Activated Partial Thromboplast Time 37 H 24-35 SEC D-Dimer 0.61 H 0.00-0.49 UG/ML My Orders Orders - BIGG RUDOLPH MD Cbc With Automated Diff (07/16/22 16:48) Fibrin Degradation Products (07/16/22 16:48) Protime With Inr (07/16/22 16:48) Partial Thromboplastin Time (07/16/22 16:48) Vital Signs/I&O 07/16/22 07/16/22 16:46 18:39 Temp 36.7 36.7 Pulse 93 89 Resp 16 16 B/P (MAP) Pulse Ox 100 100 O2 Delivery Nasal Cannula Nasal Cannula Progress Progress Note #1: Progress Note After using silver nitrate to cauterize the irritated area on the septum of the right nare labs were sent to look at her blood count and clotting factors as well as D-dimer. Advised patient that we do not have ultrasound available as she had come late in the afternoon. Also with her being on Xarelto already and having a nosebleed that she could not stop all day in addition to bleeding from her hemorrhoids it is less likely that she would have a blood clot causing swelling to the lateral part of her leg. She was not having swelling or tenderness or erythema to the posterior calf. We will see what her blood counts and D-dimer are showing. Offered to arrange an outpatient ultrasound of her right lower extremity to be done tomorrow provided her labs look okay and she continues to take Xarelto. Progress Note #2: Progress Note CBC appears stable without elevation of her white blood cell count. Hemoglobin shows chronic anemia with a hemoglobin stable at 10.1. Her D-dimer was 0.6 and to be elevated and have an increased risk of DVT her age-adjusted D-dimer would need to be above 0.81. Her INR was slightly elevated to 1.3 from her taking the Xarelto. PTT slightly elevated at 37. Again this is likely due to her taking the Xarelto. With her not having elevated D-dimer and findings that are atypical on exam for any DVT in the lower extremity will order an outpatient ultrasound. Counseled to continue on her Xarelto and to call first thing tomorrow morning about coming as an outpatient for an ultrasound. Departure Impression Primary Impression: Right leg swelling Additional Impression: Anterior epistaxis Disposition: HOME, SELF-CARE Condition: Stable Departure-Patient Inst. Decision time for Depature: 18:28 Referrals: BARBARA MARTINEZ MD (PCP/Family) Primary Care Physician Patient Instructions: Nosebleeds ED, Swelling Add. Discharge Instructions: Continue taking your blood thinner (Xarelto) to keep your blood thin and treat for any possible blood clots in your body. Call Radiology scheduling in the am at [phone] to see what time they want you to come to [place] to have an outpatient ultrasound done of your leg tomorrow. Call in the morning after 730-8 am to see when they want you to come to have the outpatient test done here in [place]. Your blood work tonight did not indicate a blood clot in your leg. The ultrasound will help evaluate this in more detail. All discharge instructions reviewed with patient and/or family. Voiced understanding. BIGG RUDOLPH MD Jul 16, 2022 16:50
[2022-07-16 17:24] LABS: BASOPHILS # (AUTO) 0.1 10^3/uL (0.0-0.1); BASOPHILS % (AUTO) 1 % (0-10); EOSINOPHILS # (AUTO) 0.1 10^3/uL (0.0-0.3); EOSINOPHILS % (AUTO) 1 % (0-10); HEMATOCRIT 35 % (35-52); HEMOGLOBIN 10.1 g/dL (11.5-16.0); LYMPHOCYTES # (AUTO) 0.8 10^3/uL (1.0-4.0); LYMPHOCYTES % (AUTO) 10 % (12-44); MEAN CORPUSCULAR HEMOGLOBIN 28 pg (25-34); MEAN CORPUSCULAR HGB CONC 29 g/dL (32-36); MEAN CORPUSCULAR VOLUME 95 fL (80-99); MEAN PLATELET VOLUME 9.4 fL (9.0-12.2); MONOCYTES # (AUTO) 0.6 10^3/uL (0.0-1.0); MONOCYTES % (AUTO) 9 % (0-12); NEUTROPHILS # (AUTO) 5.9 10^3/uL (1.8-7.8); NEUTROPHILS % (AUTO) 78 % (42-75); PLATELET COUNT 287 10^3/uL (130-400); WHITE BLOOD COUNT 7.5 10^3/uL (4.3-11.0)
[2022-07-16 17:42] LABS: FIBRIN DEGRADATION PRODUCTS 0.61 UG/ML (0.00-0.49); INR 1.3 (0.8-1.4); PROTHROMBIN TIME PATIENT 16.9 SEC (12.2-14.7)
== END 2022-07-16 18:41 | disposition home or self-care (01) ==
LOC: ER FS 16:26 → EDUNIT# 16:26 → ER FS 18:41
DX: R22.41 Localized swelling, mass and lump, right lower limb (principal); R04.0 Epistaxis; R79.1 Abnormal coagulation profile; D53.9 Nutritional anemia, unspecified; Z79.01 Long term (current) use of anticoagulants
CPT/HCPCS: 36415; 85025; 85379; 85610; 85730

== ENCOUNTER → 2022-07-17 | Outpatient (CLI) | payer MEDICARE ==
--- NOTE | 2022-07-17 12:32 | Diagnostic Imaging Report ---
PROCEDURE: US right lower extremity venous. TECHNIQUE: Multiple real-time grayscale images were obtained over the right lower extremity in various projections. Additional spectral analysis and color Doppler duplex images were also obtained. INDICATION: Right leg swelling and edema COMPARISON: None FINDINGS: The right common femoral vein, femoral vein, deep femoral vein, and popliteal vein are normal in appearance. These vessels show normal compressibility, color flow and doppler augmentation. The visualized deep calf veins demonstrate no distinct intraluminal thrombus. There is subcutaneous edema in the right leg. IMPRESSION: 1. No sonographic evidence of deep venous thrombosis in the right lower extremity. 2. Subcutaneous edema in the right leg. Dictated by: Dictated on workstation # [id number]
== END ==
LOC: RAD FS 09:36
PROVIDERS: ATTEND Family Medicine
DX: R22.41 Localized swelling, mass and lump, right lower limb (principal)

== ENCOUNTER 2022-08-04 14:13 | Emergency (ER) | payer MEDICARE ==
[~2022-08-04] VITALS: Ht 157.5 cm; Wt 73.8 kg
--- NOTE | 2022-08-04 14:42 | ED Lower Extremity ---
General Chief Complaint: Lower Extremity Stated Complaint: RT FOOT INFECTION Nursing Triage Note: PT TO ROOM FS06 VIA [facility] WITH C/O POSSIBLE INFECTION TO INNER RIGHT LOWER EXT. PT STATES SHE WAS DISCHARGED FROM [facility] X1 WEEK AGO AND BUMPED HER LEG. BLISTER NOTED TO INNER RIGHT LOWER EXT. Source: patient Exam Limitations: no limitations History of Present Illness Date Seen by Provider: Aug 04, 2022 Time Seen by Provider: 14:10 Initial Comments Patient is an 81-year-old female who presents with a right foot swelling and redness after having a laceration repaired 1 week ago. Patient has a blood blister in the right inner ankle. Sutures are intact, no bruising. No fever chills nausea vomiting or sweats. No other acute symptoms or complaints. Onset: yesterday Pain/Injury Location: right ankle Method of Injury: other Modifying Factors: Improves With Other Allergies and Home Medications Allergies Coded Allergies: aspirin (Verified Allergy, Unknown, 11/24/18) albuterol (Verified Adverse Reaction, Unknown, afib rvr, 11/24/18) Uncoded Allergies: PLASTIC TAPE (Adverse Reaction, Unknown, 11/24/18) Patient Home Medication List Home Medication List Reviewed: No Acetaminophen (Acetaminophen 8 Hour) 650 Mg Tablet.er, 1,300 MG PO BID, (Reported) Entered as Reported by: LIZ SILVA on 11/01/20 112 Budesonide (Budesonide) 0.5 Mg/2 Ml Ampul.neb, 0.5 MG IH BID, (Reported) Entered as Reported by: LIZ SILVA on 11/01/20 112 Calcium Carbonate/Vitamin D3 (Caltrate 600 + D Soft Chew Tab) 1 Each Tab.chew, 2 EACH PO DAILY, (Reported) Entered as Reported by: LIZ SILVA on 11/01/20 1124 Cyclobenzaprine HCl (Cyclobenzaprine HCl) 5 Mg Tablet, 5 MG PO TID PRN for muscle pain Prescribed by: Shala guzman on 04/07/22 1648 Diltiazem HCl (Cardizem Cd) 240 Mg Cap.er.24h, 240 MG PO DAILY, (Reported) Entered as Reported by: LIZ SILVA on 11/01/20 1124 Ferrous Sulfate (Ferrous Sulfate) 325 Mg Tablet, 325 MG PO DAILY, (Reported) Entered as Reported by: LIZ SILVA on 11/01/20 1124 Fish Oil/Borage/Flax/Om3,6,9#1 ([place] 3-6-9 1,200 mg Softgel) 1,200 Mg Capsule, 1,200 MG PO DAILY, (Reported) Entered as Reported by: LIZ SILVA on 11/01/20 1124 Furosemide (Lasix) 20 Mg Tablet, 20 MG PO DAILY, (Reported) Entered as Reported by: LIZ SILVA on 11/01/20 112 Furosemide (Lasix) 20 Mg Tablet, 20 MG PO DAILY, (Reported) Entered as Reported by: LIZ SILVA on 11/01/20 112 Gabapentin (Neurontin) 300 Mg Capsule, 300 MG PO BID, (Reported) Entered as Reported by: LIZ SILVA on 11/01/20 112 Hydrocodone/Acetaminophen (Hydrocodone-Acetamin 5-325 mg) 5 Mg-325 Mg Tablet, 1 TAB PO Q12H PRN for PAIN-MODERATE (5-7) Prescribed by: Shala guzman on 04/07/22 1648 Levalbuterol HCl (Xopenex) 1.25 Mg/3 Ml Vial.neb, 1.25 MG INH BID, (Reported) Entered as Reported by: LIZ SILVA on 11/01/20 112 Levofloxacin (Levofloxacin) 750 Mg Tablet, 750 MG PO DAILY Prescribed by: BIGG RUDOLPH on 11/01/20 1148 Levofloxacin (Levofloxacin) 500 Mg Tablet, 500 MG PO DAILY Prescribed by: BIGG RUDOLPH on 05/04/22 1904 Levothyroxine Sodium (Levothyroxine) 112 Mcg Capsule, 112 MCG PO DAILY, (Reported) Entered as Reported by: LIZ SILVA on 11/01/20 112 Montelukast Sodium (Singulair) 10 Mg Tablet, 10 MG PO DAILY, (Reported) Entered as Reported by: LIZ SILVA on 11/01/20 112 Pantoprazole Sodium (Protonix) 40 Mg Tablet.dr, 40 MG PO DAILY, (Reported) Entered as Reported by: LIZ SILVA on 11/01/20 112 Potassium Chloride (Potassium Chloride) 20 Meq Tab.er.prt, 20 MEQ PO BID, (Reported) Entered as Reported by: LIZ SILVA on 11/01/20 1124 Prednisone (Prednisone) 20 Mg Tab, 40 MG PO DAILY Prescribed by: UMANG PRESTON on 12/23/20 1137 Rivaroxaban (Xarelto) 20 Mg Tablet, 20 MG PO DAILY, (Reported) Entered as Reported by: LIZ SILVA on 11/01/20 1124 Tiotropium [place] (Spiriva) 1 Inh Aerp, 2 INH IH DAILY, (Reported) Entered as Reported by: LIZ SILVA on 11/01/20 1124 Past Guadwrg-Ghanye-Vefsaa Hx Patient Social History Tobacco Use?: No Smoking Status: Never a Smoker Smokeless Tobacco Frequency: Never a User Use of E-Cig and/or Vaping dev: No Use of E-Cig and/or Vaping Pepe: Never a User Substance use?: No Alcohol Use?: No Pt feels they are or have been: No Seasonal Allergies Seasonal Allergies: No Past Medical History Surgery/Hospitalization HX: Atrial fibrillation with ablation, pacemaker, COPD, MAGDALENA,arthritis Surgeries: Yes (Colonoscopy) Lumpectomy, Orthopedic, Pacemaker, Tonsillectomy Respiratory: Yes (Chronic O2 dependent, CPAP) Asthma, Sleep Apnea, COPD Cardiac: Yes (CHF (diastolic heart failure), cardiac dysrhythmias) Atrial Fibrillation Neurological: No Genitourinary: No Gastrointestinal: No Musculoskeletal: Yes Arthritis Endocrine: No HEENT: No Cancer: No Psychosocial: No Integumentary: No Blood Disorders: No Physical Exam Vital Signs Vital Signs - First Documented 08/04/22 14:13 Temp 36.2 Pulse 81 Resp 17 B/P (MAP) 145/57 (86) Pulse Ox 93 O2 Delivery Nasal Cannula O2 Flow Rate 3.00 Capillary Refill : Less Than 3 Seconds Height, Weight, BMI Height: 5'3.00" Weight: 224lbs. oz. 101.114147ct; 29.00 BMI Method:Stated General Appearance: no apparent distress Ankles: right ankle ecchymosis, right ankle soft tissue tenderness, right ankle swelling, right ankle other (Right inner anklle blood blister, sutured laceration, clean dry and intact. No oozing. Cellulitis involving lower foot and ankle.) Progress/Results/Core Measures Results/Orders My Orders Orders - UMANG PRESTON DO Clindamycin Capsule (Cleocin Capsule) (08/04/22 14:45) Vital Signs/I&O 08/04/22 14:13 Temp 36.2 Pulse 81 Resp 17 B/P (MAP) 145/57 (86) Pulse Ox 93 O2 Delivery Nasal Cannula O2 Flow Rate 3.00 Blood Pressure Mean: 86 Departure Communication (Admissions) Right ankle swelling redness consistent with cellulitis. Right ankle cellulitis without systemic symptoms. First dose of antibiotics given. Recommendations are therapeutic care with close PCP follow-up. Impression Primary Impression: Cellulitis of right ankle Disposition: HOME, SELF-CARE Condition: Stable Departure-Patient Inst. Decision time for Depature: 14:44 Referrals: BARBARA MARTINEZ MD (PCP) Primary Care Physician Patient Instructions: Cellulitis (Skin Infection), Adult ED Add. Discharge Instructions: You were evaluated in the emergency department for right ankle pain tenderness and swelling consistent with cellulitis. Please take newly prescribed antibiot ics as directed and follow-up with your PCP in 3 to 5 days for reevaluation and suture removal. All discharge instructions reviewed with patient and/or family. Voiced understanding. Scripts Clindamycin HCl (Clindamycin HCl) 300 Mg Capsule 300 MG PO TID, #36 CAP Prov: UMANG PRESTON DO 08/04/22 UMANG PRESTON DO Aug 04, 2022 14:42
[2022-08-04] MEDS ORDERED: CLINDAMYCIN 150 MG (CLEOCIN) CAP PO ONE (14:45)
[2022-08-04] MEDS ORDERED: CLIN-144 PO (14:46)
[2022-08-04 16:40] VITALS: BP 142/57
== END 2022-08-04 16:42 | disposition home or self-care (01) ==
LOC: EDUNIT# 14:13 → ER FS 14:14
DX: L03.115 Cellulitis of right lower limb (principal)
CPT/HCPCS: 99283

== ENCOUNTER 2022-09-15 18:00 | Emergency (ER) | payer MEDICARE ==
[~2022-09-15 18:00] MED LIST changes: +CLIN-144 PO
--- NOTE | 2022-09-15 18:07 | ED Integumentary General ---
General Chief Complaint: Skin/Wound Problems Source: patient Exam Limitations: no limitations History of Present Illness Date Seen by Provider: Sep 15, 2022 Time Seen by Provider: 17:53 Initial Comments 81-year-old female presents to the emergency department today for swelling and pain in her left buttock region. Symptoms started about a month ago. She has been telling the nursing staff about since that time but they noticed swelling in the area today when they were helping her bathe. No swelling noted prior to the event. No fever chills nausea or vomiting. She states before the swelling she did slide out of her wheelchair but did not really fall and did not notice any trauma in the area. No difficulty with stooling. No changes in urine. She is on Xarelto. Allergies and Home Medications Allergies Coded Allergies: aspirin (Verified Allergy, Unknown, 11/24/18) albuterol (Verified Adverse Reaction, Unknown, afib rvr, 11/24/18) Uncoded Allergies: PLASTIC TAPE (Adverse Reaction, Unknown, 11/24/18) Patient Home Medication List Home Medication List Reviewed: Yes Acetaminophen (Acetaminophen 8 Hour) 650 Mg Tablet.er, 1,300 MG PO BID, (Reported) Entered as Reported by: LIZ SILVA on 11/01/20 1124 Budesonide (Budesonide) 0.5 Mg/2 Ml Ampul.neb, 0.5 MG IH BID, (Reported) Entered as Reported by: LIZ SILVA on 11/01/20 1124 Calcium Carbonate/Vitamin D3 (Caltrate 600 + D Soft Chew Tab) 1 Each Tab.chew, 2 EACH PO DAILY, (Reported) Entered as Reported by: LIZ SILVA on 11/01/20 1124 Clindamycin HCl (Clindamycin HCl) 300 Mg Capsule, 300 MG PO TID Prescribed by: UMANG PRESTON on 08/04/22 1446 Cyclobenzaprine HCl (Cyclobenzaprine HCl) 5 Mg Tablet, 5 MG PO TID PRN for muscle pain Prescribed by: Shala guzman on 04/07/22 1648 Diltiazem HCl (Cardizem Cd) 240 Mg Cap.er.24h, 240 MG PO DAILY, (Reported) Entered as Reported by: LIZ SILVA on 11/01/20 1124 Ferrous Sulfate (Ferrous Sulfate) 325 Mg Tablet, 325 MG PO DAILY, (Reported) Entered as Reported by: LIZ SILVA on 11/01/20 1124 Fish Oil/Borage/Flax/Om3,6,9#1 ([place] 3-6-9 1,200 mg Softgel) 1,200 Mg Capsule, 1,200 MG PO DAILY, (Reported) Entered as Reported by: LIZ SILVA on 11/01/20 112 Furosemide (Lasix) 20 Mg Tablet, 20 MG PO DAILY, (Reported) Entered as Reported by: LIZ SILVA on 11/01/20 112 Furosemide (Lasix) 20 Mg Tablet, 20 MG PO DAILY, (Reported) Entered as Reported by: LIZ SILVA on 11/01/20 112 Gabapentin (Neurontin) 300 Mg Capsule, 300 MG PO BID, (Reported) Entered as Reported by: LIZ SILVA on 11/01/20 112 Hydrocodone Bit/Acetaminophen (HYDROcodone/APAP 5 MG/325 MG TAB) 1 Tab Tab, 1 TAB PO Q6H Prescribed by: ELICIA KELLY MD on 09/15/222031 Hydrocodone/Acetaminophen (Hydrocodone-Acetamin 5-325 mg) 5 Mg-325 Mg Tablet, 1 TAB PO Q12H PRN for PAIN-MODERATE (5-7) Prescribed by: Shala guzman on 04/07/22 1648 Levalbuterol HCl (Xopenex) 1.25 Mg/3 Ml Vial.neb, 1.25 MG INH BID, (Reported) Entered as Reported by: LIZ SILVA on 11/01/20 112 Levofloxacin (Levofloxacin) 750 Mg Tablet, 750 MG PO DAILY Prescribed by: BIGG RUDOLPH on 11/01/20 1148 Levofloxacin (Levofloxacin) 500 Mg Tablet, 500 MG PO DAILY Prescribed by: BIGG RUDOLPH on 05/04/22 1904 Levothyroxine Sodium (Levothyroxine) 112 Mcg Capsule, 112 MCG PO DAILY, (Reported) Entered as Reported by: LIZ SILVA on 11/01/20 112 Montelukast Sodium (Singulair) 10 Mg Tablet, 10 MG PO DAILY, (Reported) Entered as Reported by: LIZ SILVA on 11/01/20 112 Pantoprazole Sodium (Protonix) 40 Mg Tablet.dr, 40 MG PO DAILY, (Reported) Entered as Reported by: LIZ SILVA on 11/01/20 1124 Potassium Chloride (Potassium Chloride) 20 Meq Tab.er.prt, 20 MEQ PO BID, ( Reported) Entered as Reported by: LIZ SILVA on 11/01/20 1124 Prednisone (Prednisone) 20 Mg Tab, 40 MG PO DAILY Prescribed by: UMANG PRESTON on 12/23/20 1137 Rivaroxaban (Xarelto) 20 Mg Tablet, 20 MG PO DAILY, (Reported) Entered as Reported by: LIZ SILVA on 11/01/20 1124 Tiotropium [place] (Spiriva) 1 Inh Aerp, 2 INH IH DAILY, (Reported) Entered as Reported by: LIZ SILVA on 11/01/20 1124 Review of Systems Review of Systems Constitutional: no symptoms reported EENTM: no symptoms reported Respiratory: no symptoms reported Cardiovascular: no symptoms reported Gastrointestinal: no symptoms reported Genitourinary: no symptoms reported Musculoskeletal: other (Pain, swelling left medial buttocks) Skin: no symptoms reported Psychiatric/Neurological: No Symptoms Reported Endocrine: No Symptoms Reported Hematologic/Lymphatic: No Symptoms Reported Past Bqaitsq-Etwifz-Dvueji Hx Patient Social History Tobacco Use?: No Use of E-Cig and/or Vaping dev: No Substance use?: No Alcohol Use?: No Seasonal Allergies Seasonal Allergies: No Past Medical History Surgery/Hospitalization HX: Atrial fibrillation with ablation, pacemaker, COPD, MAGDALENA,arthritis Surgeries: Yes (Colonoscopy) Lumpectomy, Orthopedic, Pacemaker, Tonsillectomy Respiratory: Yes (Chronic O2 dependent, CPAP) Asthma, Sleep Apnea, COPD Cardiac: Yes (CHF (diastolic heart failure), cardiac dysrhythmias) Atrial Fibrillation Neurological: No Genitourinary: No Gastrointestinal: No Musculoskeletal: Yes Arthritis Endocrine: No HEENT: No Cancer: No Psychosocial: No Integumentary: No Blood Disorders: No Family Medical History Reviewed Nursing Family Hx No Pertinent Family Hx Physical Exam Vital Signs Vital Signs - First Documented 09/15/22 09/15/22 18:00 20:47 Temp 36.3 Pulse 94 Resp 18 B/P (MAP) 157/87 (110) Pulse Ox 97 O2 Delivery Nasal Cannula O2 Flow Rate 3.00 Capillary Refill : General Appearance: WD/WN, no apparent distress HEENT: normal ENT inspection, pharynx normal Neck: non-tender Cardiovascular: regular rate, rhythm, no murmur Respiratory: chest non-tender, lungs clear, normal breath sounds Gastrointestinal: normal bowel sounds, non tender, soft, no organomegaly Extremities: normal range of motion, other (Large swelling and induration in the left medial buttock. There is significant tenderness with palpation. There is no fluctuance. There is bruise overlying mildly. There is bruising further down the leg as well. Neurovascular motor and sensory intact overall.) Skin: other (As described above) Lymphatic: no adenopathy Progress/Results/Core Measures Results/Orders Lab Results Laboratory Tests Test 09/15/22 19:17 Range/Units Sodium Level 145 135-145 MMOL/L Potassium Level 4.9 3.6-5.0 MMOL/L Chloride Level 105 98-107 MMOL/L Carbon Dioxide Level 32 21-32 MMOL/L Anion Gap 8 5-14 MMOL/L Blood Urea Nitrogen 18 7-18 MG/DL Creatinine 0.86 0.60-1.30 MG/DL Estimat Glomerular Filtration Rate 68 BUN/Creatinine Ratio 21 Glucose Level 68 L 70-105 MG/DL Calcium Level 9.8 8.5-10.1 MG/DL My Orders Orders - ELICIA KELLY DO Ct Pelvis Wo (09/15/22 18:02) Basic Metabolic Panel (09/15/22 19:00) Ct Pelvis W (09/15/22 19:00) Iohexol Injection (Omnipaque 350 Mg/Ml 1 (09/15/22 19:30) Received Contrast (Hold Metformin- Contr (09/15/22 19:30) Sodium Chloride Flush (Catheter Flush Sy (09/15/22 19:30) Ns (Ivpb) (Sodium Chloride 0.9% Ivpb Bag (09/15/22 19:30) Fentanyl Inj (Sublimaze Injection) (09/15/22 20:30) Fentanyl Inj (Sublimaze Injection) (09/15/22 20:30) Rx-Hydrocodone/Apap 5-325 Mg (Rx-Vicodin (09/15/22 20:45) Medications Given in ED Vital Signs/I&O 09/15/22 09/15/22 09/15/22 18:00 20:37 20:47 Temp 36.3 36.3 36.7 Pulse 94 90 Resp 18 20 B/P (MAP) 157/87 (110) 145/85 Pulse Ox 97 100 O2 Delivery Nasal Cannula Nasal Cannula O2 Flow Rate 3.00 Departure Communication (Admissions) Patient is hemodynamically stable. No active evidence of active bleeding on CT scan. It has not changed in appearance since she has been here. This is likely traumatic hematoma. Given the location based on radiology read there is concern for traumatic tear of the tendon in the area. Muscle strength is difficult to fully evaluate due to the emergency department pain secondary to the hematoma however she does appear to have good function of her gluteal muscles grossly. Pain control with IV fentanyl provided. Patient did receive significant relief.. She is discharged home with pain control, close follow-up with primary care and general and orthopedic surgery. Impression Primary Impression: Traumatic hematoma of buttock Qualified Codes: S30.0XXA - Contusion of lower back and pelvis, initial encounter Disposition: 01 HOME, SELF-CARE Condition: Stable Departure-Patient Inst. Referrals: TERE COREAS JOHN M MD (PCP/Family) Primary Care Physician KARLO ROTH MD Patient Instructions: Contusion (DC) Add. Discharge Instructions: This appears to be a large bruise beneath the skin. There is concern for a muscle tear in this area as well Use hydrocodone and motrin as needed for pain. Hydrocodone may make you drowsy so dont drive or make important decisions while taking this. Dont take any additional tylenol or medication containing tylenol. You may want to hold your blood thinning medications for the next 2 to 3 days discussed this with your doctor versus the risk of stroke with atrial fibrillation. Return to the emergency department for any severe concerns. Follow-up with your primary doctor 48 to 72 hours for recheck and ultimately you may need to see an orthopedic surgeon. Return to the emergency department immediately for any rapid expansion. All discharge instructions reviewed with patient and/or family. Voiced understanding. Scripts Hydrocodone Bit/Acetaminophen (HYDROcodone/APAP 5 MG/325 MG TAB) 1 Tab Tab 1 TAB PO Q6H for Pain for 3 Days, #12 TAB Prov: ELICIA KELLY DO 09/15/22 ELICIA KELLY DO Sep 15, 2022 18:07
--- NOTE | 2022-09-15 18:48 | Diagnostic Imaging Report ---
PROCEDURE: CT pelvis without contrast. TECHNIQUE: Multiple contiguous axial images were obtained through the pelvis without the use of intravenous contrast. Sagittal and coronal reformations were performed. Auto Exposure Controls were utilized during the CT exam to meet ALARA standards for radiation dose reduction. INDICATION: 81-year-old female presents with a large hard left buttock mass. There is no known injury. COMPARISONS: 04/17/2022. FINDINGS: The visualized pelvis shows a ventral hernia containing what appears to be transverse colon. There is omentum and possibly mesentery. This appears to be incarcerated but not strangulated and shows similar findings when compared to the previous CT of 04/07/2022. There are no secondary signs of obstruction. Partially filled bladder is unremarkable. Multiple calcified fibroids are seen in an atrophic uterus. Bony abdomen/pelvis shows degenerative changes of the lumbosacral spine. There is a right hip arthroplasty, similar to the previous study. There is an approximately 8 cm x 7.5 cm mass in the left gluteal region extending from the level of the ischium to the posterior left proximal thigh. Given the slight increased attenuation, this is most likely a soft tissue hematoma. Possibility of an abscess cannot be excluded. IMPRESSION: 1. Approximately 8 cm x 7.5 cm soft tissue density extending from the level of the left gluteal region extending inferiorly along the posterior aspect of the left thigh and buttock. Differential includes a hematoma versus less likely an organized abscess with proteinaceous fluid. Perhaps a postcontrast CTA may be of further value to assess for active extravasation of contrast if there is active bleeding. 2. Stable ventral hernia containing transverse colon and omentum and possibly mesentery. This appears to be incarcerated but not strangulated with no secondary signs of obstruction with no adverse interval change since the prior exam. Additional nonemergent findings as described above. Dictated by: Dictated on workstation # [id number]
[2022-09-15] MEDS ORDERED: NS 100 ML (IVPB) BAG IV ONE (19:30)
[2022-09-15] MEDS ORDERED: CATHETER FLUSH 10 ML SYR IV PRN (19:30)
[2022-09-15] MEDS ORDERED: IOHEXOL 350 MG/ML 100 ML (OMNIPAQUE 350) VIAL IV ONE (19:30)
[2022-09-15] MEDS ORDERED: HOLD METFORMIN - RECEIVED CONTRAST 20 ML VIAL IV SCH (19:30)
[2022-09-15 19:47] LABS: POTASSIUM 4.9 MMOL/L (3.6-5.0)
[2022-09-15 19:48] LABS: CALCIUM 9.8 MG/DL (8.5-10.1)
[2022-09-15 19:49] LABS: CREATININE SERUM 0.86 MG/DL (0.60-1.30)
[2022-09-15] MEDS ORDERED: fentaNYL INJ 100 MCG/2 ML AMP IVP ONE (20:30)
[2022-09-15] MEDS ORDERED: fentaNYL INJ 100 MCG/2 ML AMP IM ONE (20:30)
[2022-09-15] MEDS ORDERED: ACHD5005 PO (20:31)
[2022-09-15 20:47] VITALS: BP 145/85
--- NOTE | 2022-09-15 20:57 | Diagnostic Imaging Report ---
PROCEDURE: CT pelvis with contrast. DATE: September 15, 2022. INDICATION: 81-year-old female, left gluteal hematoma and pain. COMPARISON: CT pelvis without contrast September 15, 2022. TECHNIQUE: Axial CT images of the pelvis are obtained with intravenous contrast. Coronal and sagittal reformats were obtained and provided. All CT scans use one or more of the following dose optimizing techniques: automated exposure control, MA and/or KvP adjustment based on patient size and exam type or iterative reconstruction. . FINDINGS: There is a large high attenuation mass which involves the left gluteus diana muscle in its inferior aspect and also involves the adjacent soft tissues. This is extending posteriorly and medially and also is in the region of the expected attachment site at the common hamstring tendons. This is essentially unchanged in size since the earlier noncontrast exam. There is no clear evidence of extravasation of contrast. This is not an arterial phase postcontrast timing exam. There is no identified free fluid in the pelvis. There is prominent fat attenuation in the region of the left adductor musculature which is very likely benign. There is fatty atrophy of the left gluteus minimus and medius muscles. There is generalized gluteal muscle atrophy on the right. There is a right anterior abdominal wall hernia containing a segment of bowel without associated obstruction or other complication. 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 There is no identified aggressive bone destruction. There are multilevel degenerative changes of the spine. There is a right hip prosthesis. 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 IMPRESSION: 1. Large high attenuation mass involving the left gluteus diana muscle in its aspect extending in the posterior and medial subcutaneous tissues to the inferior margin of the included [id number] and also in the region of the left common hamstring tendon insertion. This is nonspecific and could relate to a hematoma in the appropriate clinical scenario. Appearance would be less typical for an abscess. Malignant lesion would also be a differential consideration. No clear evidence to suggest active bleeding. 2. Although the left common hamstring tendon attachment site is not well-evaluated, there is concern for a complete tear of the left common hamstring tendons. 3. Chronic deformity of the left ischium. Dictated by: Dictated on workstation # [id number]
== END 2022-09-15 20:47 | disposition home or self-care (01) ==
LOC: EDUNIT# 18:00 → ER FS 18:01
DX: S30.0XXA Contusion of lower back and pelvis, initial encounter (principal); J44.9 Chronic obstructive pulmonary disease, unspecified; Z99.81 Dependence on supplemental oxygen; Z88.6 Allergy status to analgesic agent; Z79.01 Long term (current) use of anticoagulants; X58.XXXA Exposure to other specified factors, initial encounter
CPT/HCPCS: 36415; 72192; 72193; 80048